=== PATIENT | male | born 1970 | race African-American/Black ===

== ENCOUNTER 2017-12-10 19:10 | Inpatient (IN) | payer OTHER ==
[2017-12-10 21:00] VITALS: BMI 23.3
[2017-12-10] MEDS ORDERED: MELATONIN 5 MG TABLETS PO PRN (22:00)
--- NOTE | 2017-12-10 22:28 | HP ---
CIWA Score - CIWA Score Nausea/Vomitin Muscle Tremors: 3 Anxiety: 4-Mod. Anxious/Guarded Agitation: 4-Moderately Restless Paroxysmal Sweats: 4-Forehead w/Sweat Beads Orientation: 2-Disoriented Date<2 days Tacttile Disturbances: 3-Moderate Itch/Numb/Burn Auditory Disturbances: 0-None Visual Disturbances: 0-None Headache: 2-Mild CIWA-Ar Total Score: 25 Admission ROS BHS - HPI Chief Complaint: SEEKING DETOX FOR ALCOHOLISM AND WITHDRAWAL SX'S Allergies/Adverse Reactions: Allergies Allergy/AdvReac Type Severity Reaction Status Date / Time No Known Allergies Allergy Verified 12/10/17 21:08 History of Present Illness: 47 Y.O. MALE WITH LONG HX/O ALCOHOLISM HERE FOR DETOX. CLIENT STATES THIS IS HIS FIRST ATTEMPT IN DETOX BUT IS KNOWN TO INPATIENT REHAB SERVICES. HE IS COMPLAINING OF AN ABSCESS TO HIS BUTTOCKS THAT KEEPS RECURRING. ONCE HAD IT SX REMOVED BUT HAS SINCE RETURNED. DENIES PMHX/ FEELS DEPRESSED BUT DENIES SI/HI, A /V HALLUCINATIONS. REPORTS LONGEST CLEAN TIME 6 MONTHS. Exam Limitations: No Limitations - Ebola screening Have you traveled outside of the country in the last 21 days: No (N) Have you had contact with anyone from an Ebola affected area: No Have you been sick,other than usual withdrawal symptoms: No Do you have a fever: No - Review of Systems Constitutional: Chills, Loss of Appetite, Night Sweats, Changes in sleep EENT: reports: No Symptoms Reported Respiratory: reports: No Symptoms reported Cardiac: reports: No Symptoms Reported GI: reports: Nausea, Poor Appetite, Poor Fluid Intake : reports: No Symptoms Reported Musculoskeletal: reports: No Symptoms Reported Integumentary: reports: Other (ABSCESS TO BOTH BUTTOCKS) Neuro: reports: No Symptoms reported Endocrine: reports: No Symptoms Reported Hematology: reports: No Symptoms Reported Psychiatric: reports: Depressed Other Systems: Reviewed and Negative Patient History - Patient Medical History Hx Anemia: No Hx Asthma: No Hx Chronic Obstructive Pulmonary Disease (COPD): No Hx Cancer: No Hx Cardiac Disorders: No Hx Congestive Heart Failure: No Hx Hypertension: No Hx Hypercholesterolemia: No Hx Pacemaker: No HX Cerebrovascular Accident: No Hx Seizures: No Hx Dementia: No Hx Diabetes: No Hx Gastrointestinal Disorders: No Hx Liver Disease: No Hx Genitourinary Disorders: No Hx Sexually Transmitted Disorders: No Hx Renal Disease (ESRD): No Hx Thyroid Disease: No Hx Human Immunodeficiency Virus (HIV): No Hx Hepatitis C: No Hx Depression: Yes Hx Suicide Attempt: No Hx Bipolar Disorder: No Hx Schizophrenia: No Other Medical History: REOCURRING HIDRADENITIS SUPPURATIVA OF THE BUTTOCKS - Patient Surgical History Past Surgical History: Yes Hx Neurologic Surgery: No Hx Cataract Extraction: No Hx Cardiac Surgery: No Hx Lung Surgery: No Hx Breast Surgery: No Hx Breast Biopsy: No Hx Abdominal Surgery: No Hx Appendectomy: No Hx Cholecystectomy: No Hx Genitourinary Surgery: No Hx Section: No Hx Orthopedic Surgery: No Other Surgical History: SX REMOVAL OF ABCESSES TO BUTTOCKS Anesthesia Reaction: No - PPD History Previous Implant?: Yes Documented Results: Negative w/o proof Implanted On Prior R Admission?: No PPD to be Administered?: Yes - Smoking Cessation Smoking history: Current every day smoker Have you smoked in the past 12 months: Yes Aproximately how many cigarettes per day: 10 Hx Chewing Tobacco Use: No Initiated information on smoking cessation: Yes 'Breaking Loose' booklet given: 12/10/17 - Substance & Tx. History Hx Alcohol Use: Yes Hx Substance Use: Yes Substance Use Type: Alcohol Hx Substance Use Treatment: Yes (DOES NOT RECALL REHAB) - Substances Abused Alcohol Route: Oral Frequency: Daily Amount used: liquor-3 pints Age of first use: 28 Date of Last Use: 12/10/17 Family Disease History - Family Disease History Family History: Denies Admission Physical Exam BHS - Vital Signs Vital Signs: Vital Signs - 24 hr 12/10/17 20:59 Temperature 98.8 F Pulse Rate 102 H Respiratory 18 Rate Blood Pressure 119/68 - Physical General Appearance: Yes: Appropriately Dressed, Alcohol on Breath, Intoxicated, Tremorous, Anxious HEENTM: Yes: EOMI, Normal Voice, YEMI, Pharynx Normal Respiratory: Yes: Chest Non-Tender, Lungs Clear, Normal Breath Sounds, No Respiratory Distress, No Accessory Muscle Use Neck: Yes: No masses,lesions,Nodules, Supple, Trachea in good position Breast: Yes: Breast Exam Deferred Cardiology: Yes: Regular Rhythm, S1, S2, Tachycardia Abdominal: Yes: Normal Bowel Sounds, Non Tender, Flat, Soft Genitourinary: Yes: Within Normal Limits Back: Yes: Normal Inspection Musculoskeletal: Yes: full range of Motion, Gait Steady Extremities: Yes: Normal Capillary Refill, Normal Range of Motion, Non-Tender, Tremors Neurological: Yes: Alert, Motor Strength 5/5, Disoriented Integumentary: Yes: Dry (FOLLICULITIS/ HIDRADENITIS SUPPURATIVA OF THE BUTTOCKS NOTED TO R/L BUTTOCKS PIMPLE LIKE ABCESS), Warm, Other Lymphatic: Yes: Within Normal Limits - Diagnostic (1) Alcohol dependence with uncomplicated withdrawal Current Visit: Yes Status: Chronic (2) Nicotine dependence Current Visit: Yes Status: Chronic Qualifiers: Nicotine product type: cigarettes Substance use status: uncomplicated Qualified Code(s): F17.210 - Nicotine dependence, cigarettes, uncomplicated (3) Depressed mood Current Visit: Yes Status: Suspected (4) Hidradenitis suppurativa Current Visit: Yes Status: Chronic (5) Folliculitis Current Visit: Yes Status: Acute (6) Dehydration Current Visit: Yes Status: Acute (7) Poor appetite Current Visit: Yes Status: Acute Cleared for Admission [facility] - Detox or Rehab [facility] Level of Care: Medically Managed Detox Regimen/Protocol: Librium Claeared for Rehab Admission: No [facility] Breath Alcohol Content Breath Alcohol Content: 0.369 Urine Drug Screen - Results Drug Screen Negative: Yes
[2017-12-10] MEDS ORDERED: chlordiazePOXIDE HCL 25 MG CAPSULE PO PRN (22:48)
[2017-12-10] MEDS ORDERED: MENTHOL/PHENOL 1 EACH UD MM PRN (22:48)
[2017-12-10] MEDS ORDERED: P-EPHED 60MG/TRIPROLIDI 2.5MG TABLET PO PRN (22:48)
[2017-12-10] MEDS ORDERED: MAG HYDROX/AL HYDROX/SIMETH 30 ML UNIT-DOSE CUP PO PRN (22:48)
[2017-12-10] MEDS ORDERED: hydrOXYzine PAMOATE 50 MG CAPSULE (FP) PO PRN (22:48)
[2017-12-10] MEDS ORDERED: LOPERAMIDE HCL 2 MG CAPSULE PO PRN (22:48)
[2017-12-10] MEDS ORDERED: guaiFENesin/D-METHORPHAN HB 10 ML UNIT-DOSE CUPS PO PRN (22:48)
[2017-12-10] MEDS ORDERED: NICOTINE POLACRILEX 2 MG GUM BC PRN (22:48)
[2017-12-10] MEDS ORDERED: ACETAMINOPHEN 325 MG TABLET (FP) PO PRN (22:48)
[2017-12-10] MEDS ORDERED: IBUPROFEN 400 MG TABLET (FP) PO PRN (22:48)
[2017-12-11] MEDS: chlordiazePOXIDE HCL 25 MG CAPSULE PO SCH ×4 (00:29→22:22)
[2017-12-11] MEDS: PRENATAL VITAMINS W/ FOLIC ACID TABLET (FP) PO SCH (07:48)
[2017-12-11] MEDS ORDERED: DOXYCYCLINE HYCLATE 100 MG CAPSULE PO SCH (10:00)
[2017-12-11 10:16] LABS: HEMATOCRIT 34.5 % (35.4-49); HEMOGLOBIN 12.4 GM/dL (11.7-16.9); MCH 33.2 pg (25.7-33.7); MCHC 35.8 g/dl (32.0-35.9); MEAN CELL VOLUME 92.7 fl (80-96); MEAN PLT VOLUME 8.1 fl (7.5-11.1); PLATELET COUNT 176 K/MM3 (134-434); RBC 3.73 M/mm3 (4.00-5.60); RDW 15.6 % (11.9-15.9); WHITE BLOOD COUNT 4.6 K/mm3 (4.0-10.0)
[2017-12-11 10:18] LABS: ALBUMIN 3.2 g/dl (3.4-5.0); CHLORIDE 102 mmol/L (98-107); POTASSIUM 3.5 mmol/L (3.5-5.1); SODIUM 140 mmol/L (136-145)
[2017-12-11 10:27] LABS: ALK PHOS 84 U/L (45-117); ANION GAP 12 (8-16); BILIRUBIN,TOTAL 1.3 mg/dL (0.2-1.0); BLOOD UREA NITROGEN 9 mg/dL (7-18); CALCIUM 8.5 mg/dL (8.5-10.1); CO2 26 mmol/L (21-32); CREATININE 0.8 mg/dL (0.7-1.3); GLUCOSE,RANDOM 83 mg/dL (74-106); SGOT/AST 131 U/L (15-37); SGPT/ALT 46 U/L (12-78); TOT PROT 6.7 g/dl (6.4-8.2)
[2017-12-11] MEDS: NICOTINE 14 MG/24 HOURS TOPICAL PATCH TD SCH (10:42)
--- NOTE | 2017-12-11 12:03 | EKG ---
Test Reason : Blood Pressure : / mmHG Vent. Rate : 094 BPM Atrial Rate : 094 BPM P-R Int : 142 ms QRS Dur : 082 ms QT Int : 346 ms P-R-T Axes : 063 074 061 degrees QTc Int : 432 ms NORMAL SINUS RHYTHM NORMAL ECG NO PREVIOUS ECGS AVAILABLE Confirmed by DREW FLORES, NOLVIA ([id number]) on 12/11/2017 12:03:09 PM Referred By: Confirmed By:NOLVIA RUSSELL MD
--- NOTE | 2017-12-11 12:36 | PN ---
[facility] CIWA - CIWA Score Nausea/Vomitin-No Nausea/No Vomiting Muscle Tremors: 4-Moderate,w/Arms Extend Anxiety: 4-Mod. Anxious/Guarded Agitation: 4-Moderately Restless Paroxysmal Sweats: 1-Minimal Palms Moist Orientation: 0-Oriented Tacttile Disturbances: 3-Moderate Itch/Numb/Burn Auditory Disturbances: 0-None Visual Disturbances: 0-None Headache: 0-None Present CIWA-Ar Total Score: 16 S Progress Note (SOAP) Subjective: ANXIETY,TREMORS,SWEATS, INTERMITTENT SLEEP. PT REPORTS "I CAN'T TAKE THE SKIN TEST. I DO THE CHEST XRAY". PT DID NOT GIVE ON ADMISSION HIS CORRECT PPD STATUS - DID NOT REMEMBER. Objective: 12/11/17 12:34 Vital Signs 12/11/17 12/11/17 12/11/17 05:00 05:30 06:00 Temperature Pulse Rate 103 H 100 H 100 H Respiratory 18 18 18 Rate Blood Pressure 12/11/17 12/11/17 12/11/17 06:23 06:30 06:54 Temperature 98.7 F Pulse Rate 99 H 99 H Respiratory 18 18 18 Rate Blood Pressure 129/75 12/11/17 12/11/17 12/11/17 07:00 07:30 08:00 Temperature Pulse Rate 98 H 97 H 95 H Respiratory 18 18 18 Rate Blood Pressure 12/11/17 12/11/17 12/11/17 08:30 09:00 09:30 Temperature Pulse Rate 94 H 103 H 100 H Respiratory 18 22 22 Rate Blood Pressure 12/11/17 12/11/17 12/11/17 09:52 10:00 10:30 Temperature 98.8 F Pulse Rate 103 H 98 H 96 H Respiratory 20 20 20 Rate Blood Pressure 127/81 Laboratory Tests 12/11/17 12/11/17 07:30 07:30 WBC 4.6 RBC 3.73 L Hgb 12.4 Hct 34.5 L MCV 92.7 MCH 33.2 MCHC 35.8 RDW 15.6 Plt Count 176 MPV 8.1 Sodium 140 Potassium 3.5 Chloride 102 Carbon Dioxide 26 Anion Gap 12 BUN 9 Creatinine 0.8 Creat Clearance w eGFR > 60 Random Glucose 83 Calcium 8.5 Total Bilirubin 1.3 H AST 131 H ALT 46 Alkaline Phosphatase 84 Total Protein 6.7 Albumin 3.2 L OTHER LABS PENDING Assessment: 12/11/17 12:35 WITHDRAWAL SX Plan: CONTINUE DETOX CHEST XRAY ORDERED TODAY
--- NOTE | 2017-12-11 15:05 | CONSULT ---
[facility] Psychiatric Consult - Data Date of interview: 12/11/17 Admission source: [facility] Identifying data: Readmission to [facility] for this [place]-born male seeking detoxification treatment on for alcohol dependence.Patient is , a father of one,homeless,unemployed and deprived of any source of income. Substance Abuse History: Confirmed by patient in this session.Smoking history: Current every day smoker. Have you smoked in the past 12 months: Yes. Aproximately how many cigarettes per day: 10. Hx Chewing Tobacco Use: No. Initiated information on smoking cessation: Yes. 'Breaking Loose' booklet given : 12/10/17. - Substance & Tx. History. Hx Alcohol Use: Yes. Hx Substance Use : Yes. Substance Use Type: Alcohol. Hx Substance Use Treatment: Yes (DOES NOT RECALL REHAB). - Substances Abused. Alcohol. Route: Oral. Frequency: Daily. Amount used: liquor-3 pints. Age of first use: 28. Date of Last Use: 12/10/17 Medical History: Hydradenitis suppurativa (buttocks) and a history of positive PPD. Psychiatric History: Patient denies. Physical/Sexual Abuse/Trauma History: Patient denies. Additional Comment: Drug Screen is negative. Mental Status Exam - Mental Status Exam Alert and Oriented to: Time, Place, Person Cognitive Function: Good Patient Appearance: Well Groomed (short stature) Mood: Nervous, Withdrawn Affect: Mood Congruent Patient Behavior: Fatigued, Appropriate, Cooperative Speech Pattern: Clear, Appropriate Voice Loudness: Normal Thought Process: Intact, Goal Oriented Thought Disorder: Not Present Hallucinations: Denies Suicidal Ideation: Denies Homicidal Ideation: Denies Insight/Judgement: Poor Sleep: Well Appetite: Good Muscle strength/Tone: Normal Gait/Station: Normal Psychiatric Findings - Problem List ([place] 1, 2,3) (1) Alcohol dependence with uncomplicated withdrawal Current Visit: Yes Status: Acute (2) Nicotine dependence Current Visit: Yes Status: Acute Qualifiers: Nicotine product type: cigarettes Substance use status: in withdrawal Qualified Code(s): F17.213 - Nicotine dependence, cigarettes, with withdrawal (3) Insomnia Current Visit: Yes Status: Acute - Initial Treatment Plan Initial Treatment Plan: Psychoeducation.Detoxification.Observation.
[2017-12-11 18:14] LABS: URINE APPEARANCE CLEAR; URINE BILIRUBIN NEGATIVE (<2.0 mg/dL); URINE COLOR DKYELLOW; URINE GLUCOSE (UA) 3+ (NEGATIVE); URINE KETONE NEGATIVE (NEGATIVE); URINE LEUK ESTERASE NEGATIVE (NEGATIVE); URINE NITRITE NEGATIVE (NEGATIVE); URINE PROTEIN NEGATIVE (NEGATIVE); URINE UROBILINOGEN 4.0 E.U/dl mg/dL (0.2-1.0)
[2017-12-11] MEDS: DOXYCYCLINE HYCLATE 100 MG TABLET PO SCH (19:11)
[2017-12-11] MEDS: THIAMINE HCL 100 MG TABLET (FP) PO SCH (22:22)
[2017-12-12] MEDS: chlordiazePOXIDE HCL 25 MG CAPSULE PO SCH ×3 (05:35→17:36)
[2017-12-12] MEDS: PRENATAL VITAMINS W/ FOLIC ACID TABLET (FP) PO SCH ×2 (07:39→10:32)
--- NOTE | 2017-12-12 10:24 | PN ---
S CIWA - CIWA Score Nausea/Vomitin-No Nausea/No Vomiting Muscle Tremors: 3 Anxiety: 5 Agitation: 3 Paroxysmal Sweats: 1-Minimal Palms Moist Orientation: 0-Oriented Tacttile Disturbances: 0-None Auditory Disturbances: 0-None Visual Disturbances: 0-None Headache: 0-None Present CIWA-Ar Total Score: 12 BHS Progress Note (SOAP) Subjective: PT C/O "WOOZY" FEELING. FIRST TIME IN DETOX. ALERT O X 3. DENIES NAUSEA/ VOMITING. Objective: 12/12/17 11:28 Vital Signs 12/12/17 12/12/17 12/12/17 06:03 06:50 09:34 Temperature 96.5 F L 98.1 F Pulse Rate 80 92 H Respiratory 16 18 20 Rate Blood Pressure 105/62 118/71 Laboratory Tests 12/11/17 12/11/17 12/11/17 07:30 07:30 07:30 WBC 4.6 RBC 3.73 L Hgb 12.4 Hct 34.5 L MCV 92.7 MCH 33.2 MCHC 35.8 RDW 15.6 Plt Count 176 MPV 8.1 Sodium 140 Potassium 3.5 Chloride 102 Carbon Dioxide 26 Anion Gap 12 BUN 9 Creatinine 0.8 Creat Clearance w eGFR > 60 Random Glucose 83 Calcium 8.5 Total Bilirubin 1.3 H AST 131 H ALT 46 Alkaline Phosphatase 84 Total Protein 6.7 Albumin 3.2 L Urine Color Urine Appearance Urine pH Ur Specific [place] Urine Protein Urine Glucose (UA) Urine Ketones Urine Blood Urine Nitrite Urine Bilirubin Urine Urobilinogen Ur Leukocyte Esterase RPR Titer Nonreactive 12/11/17 10:00 WBC RBC Hgb Hct MCV MCH MCHC RDW Plt Count MPV Sodium Potassium Chloride Carbon Dioxide Anion Gap BUN Creatinine Creat Clearance w eGFR Random Glucose Calcium Total Bilirubin AST ALT Alkaline Phosphatase Total Protein Albumin Urine Color Dkyellow Urine Appearance Clear Urine pH 5.0 Ur Specific [place] 1.025 Urine Protein Negative Urine Glucose (UA) 3+ H Urine Ketones Negative Urine Blood Negative Urine Nitrite Negative Urine Bilirubin Negative Urine Urobilinogen 4.0 e.u/dl Ur Leukocyte Esterase Negative RPR Titer Assessment: 12/12/17 11:30 WITHDRAWAL SX Plan: CONTINUE DETOX
[2017-12-12] MEDS: DOXYCYCLINE HYCLATE 100 MG TABLET PO SCH ×2 (10:32→17:36)
[2017-12-12] MEDS: NICOTINE 14 MG/24 HOURS TOPICAL PATCH TD SCH (10:33)
[2017-12-12] MEDS: THIAMINE HCL 100 MG TABLET (FP) PO SCH (22:17)
[2017-12-12] MEDS: chlordiazePOXIDE 5 MG CAPSULE PO SCH (22:17)
[2017-12-13] MEDS: chlordiazePOXIDE 5 MG CAPSULE PO SCH ×3 (05:31→17:26)
[2017-12-13] MEDS: PRENATAL VITAMINS W/ FOLIC ACID TABLET (FP) PO SCH (10:48)
[2017-12-13] MEDS: NICOTINE 14 MG/24 HOURS TOPICAL PATCH TD SCH (10:48)
[2017-12-13] MEDS: BACITRACIN 0.9 GM PACKET TP SCH ×2 (10:49→23:42)
--- NOTE | 2017-12-13 11:15 | PN ---
BHS Progress Note (SOAP) Subjective: ANXIETY,SWEATS,FATIGUE. PT IS OOB AMBULATING WITH STEADY GAIT. IRRITATION TO BEARDED AREAS. Objective: 12/13/17 11:13 Vital Signs 12/13/17 12/13/17 12/13/17 03:30 06:18 09:49 Temperature 97.2 F L 97.2 F L Pulse Rate 77 94 H Respiratory 18 18 20 Rate Blood Pressure 117/79 108/73 Laboratory Tests 12/11/17 12/11/17 12/11/17 07:30 07:30 07:30 WBC 4.6 RBC 3.73 L Hgb 12.4 Hct 34.5 L MCV 92.7 MCH 33.2 MCHC 35.8 RDW 15.6 Plt Count 176 MPV 8.1 Sodium 140 Potassium 3.5 Chloride 102 Carbon Dioxide 26 Anion Gap 12 BUN 9 Creatinine 0.8 Creat Clearance w eGFR > 60 Random Glucose 83 Calcium 8.5 Total Bilirubin 1.3 H AST 131 H ALT 46 Alkaline Phosphatase 84 Total Protein 6.7 Albumin 3.2 L Urine Color Urine Appearance Urine pH Ur Specific [place] Urine Protein Urine Glucose (UA) Urine Ketones Urine Blood Urine Nitrite Urine Bilirubin Urine Urobilinogen Ur Leukocyte Esterase RPR Titer Nonreactive 12/11/17 10:00 WBC RBC Hgb Hct MCV MCH MCHC RDW Plt Count MPV Sodium Potassium Chloride Carbon Dioxide Anion Gap BUN Creatinine Creat Clearance w eGFR Random Glucose Calcium Total Bilirubin AST ALT Alkaline Phosphatase Total Protein Albumin Urine Color Dkyellow Urine Appearance Clear Urine pH 5.0 Ur Specific [place] 1.025 Urine Protein Negative Urine Glucose (UA) 3+ H Urine Ketones Negative Urine Blood Negative Urine Nitrite Negative Urine Bilirubin Negative Urine Urobilinogen 4.0 e.u/dl Ur Leukocyte Esterase Negative RPR Titer Assessment: 12/13/17 11:14 WITHDRAWAL SX Plan: CONTINUE DETOX INCREASED FLUIDS ENCOURAGED BACITRACIN OINTMENT DIRECTED
[2017-12-13] MEDS: DOXYCYCLINE HYCLATE 100 MG TABLET PO SCH ×2 (11:18→17:26)
[2017-12-13] MEDS: THIAMINE HCL 100 MG TABLET (FP) PO SCH (23:42)
[2017-12-13] MEDS: chlordiazePOXIDE HCL 10 MG CAPSULE PO SCH (23:42)
[2017-12-14] MEDS: chlordiazePOXIDE HCL 10 MG CAPSULE PO SCH (06:01)
[2017-12-14] MEDS: DOXYCYCLINE HYCLATE 100 MG TABLET PO SCH (09:04)
[2017-12-14] MEDS: PRENATAL VITAMINS W/ FOLIC ACID TABLET (FP) PO SCH (09:04)
[2017-12-14] MEDS: NICOTINE 14 MG/24 HOURS TOPICAL PATCH TD SCH (09:05)
[2017-12-14] MEDS: BACITRACIN 0.9 GM PACKET TP SCH (09:05)
[2017-12-14 09:17] VITALS: BP 99/66; PULSE 97; TEMP 96.9
--- NOTE | 2017-12-14 19:46 | PN ---
BHS Progress Note (SOAP) Subjective: Patient denies current Detox symptoms and reports that he feels well overall. Objective: PATIENT A & O X 3, OBSERVED AMBULATING ON UNIT. NO ACUTE DISTRESS. 12/14/17 19:45 Vital Signs Temperature 96.9 F L 12/14/17 09:16 Pulse Rate 97 H 12/14/17 09:16 Respiratory Rate 20 12/14/17 09:16 Blood Pressure 99/66 12/14/17 09:16 O2 Sat by Pulse Oximetry (%) Laboratory Tests 12/11/17 12/11/17 12/11/17 07:30 07:30 07:30 WBC 4.6 RBC 3.73 L Hgb 12.4 Hct 34.5 L MCV 92.7 MCH 33.2 MCHC 35.8 RDW 15.6 Plt Count 176 MPV 8.1 Sodium 140 Potassium 3.5 Chloride 102 Carbon Dioxide 26 Anion Gap 12 BUN 9 Creatinine 0.8 Creat Clearance w eGFR > 60 Random Glucose 83 Calcium 8.5 Total Bilirubin 1.3 H AST 131 H ALT 46 Alkaline Phosphatase 84 Total Protein 6.7 Albumin 3.2 L Urine Color Urine Appearance Urine pH Ur Specific [place] Urine Protein Urine Glucose (UA) Urine Ketones Urine Blood Urine Nitrite Urine Bilirubin Urine Urobilinogen Ur Leukocyte Esterase RPR Titer Nonreactive 12/11/17 10:00 WBC RBC Hgb Hct MCV MCH MCHC RDW Plt Count MPV Sodium Potassium Chloride Carbon Dioxide Anion Gap BUN Creatinine Creat Clearance w eGFR Random Glucose Calcium Total Bilirubin AST ALT Alkaline Phosphatase Total Protein Albumin Urine Color Dkyellow Urine Appearance Clear Urine pH 5.0 Ur Specific [place] 1.025 Urine Protein Negative Urine Glucose (UA) 3+ H Urine Ketones Negative Urine Blood Negative Urine Nitrite Negative Urine Bilirubin Negative Urine Urobilinogen 4.0 e.u/dl Ur Leukocyte Esterase Negative RPR Titer LABS NOTED. Assessment: 12/14/17 19:46 COMPLETION OF DETOX REGIMEN. Plan: PATIENT SCHEDULED FOR DISCHARGE FROM DETOX UNIT TODAY.
--- NOTE | 2017-12-14 19:50 | DS ---
[facility] Detox Discharge Summary Admission Date: 12/10/17 Discharge Date: 12/14/17 - History Present History: Alcohol Dependence Additional Comments: PATIENT GOING HOME. PATIENT ADVISED TO CONSIDER LOCAL 12-STEP / AA OUTPATIENT SUPPORT GROUPS FOR AFTERCARE. PATIENT WAS DISCHARGED FROM DETOX UNIT IN STABLE MEDICAL CONDITION. Pertinent Past History: Hydratinitis Suppurativa, Folliculitis, Depression, Dehydration, Insomnia, Nicotine Dependence. - Physical Exam Results Vital Signs: Vital Signs Temperature 96.9 F L 12/14/17 09:16 Pulse Rate 97 H 12/14/17 09:16 Respiratory Rate 20 12/14/17 09:16 Blood Pressure 99/66 12/14/17 09:16 O2 Sat by Pulse Oximetry (%) Pertinent Admission Physical Exam Findings: WITHDRAWAL SYMPTOMS. Laboratory Tests 12/11/17 12/11/17 12/11/17 07:30 07:30 07:30 WBC 4.6 RBC 3.73 L Hgb 12.4 Hct 34.5 L MCV 92.7 MCH 33.2 MCHC 35.8 RDW 15.6 Plt Count 176 MPV 8.1 Sodium 140 Potassium 3.5 Chloride 102 Carbon Dioxide 26 Anion Gap 12 BUN 9 Creatinine 0.8 Creat Clearance w eGFR > 60 Random Glucose 83 Calcium 8.5 Total Bilirubin 1.3 H AST 131 H ALT 46 Alkaline Phosphatase 84 Total Protein 6.7 Albumin 3.2 L Urine Color Urine Appearance Urine pH Ur Specific [place] Urine Protein Urine Glucose (UA) Urine Ketones Urine Blood Urine Nitrite Urine Bilirubin Urine Urobilinogen Ur Leukocyte Esterase RPR Titer Nonreactive 12/11/17 10:00 WBC RBC Hgb Hct MCV MCH MCHC RDW Plt Count MPV Sodium Potassium Chloride Carbon Dioxide Anion Gap BUN Creatinine Creat Clearance w eGFR Random Glucose Calcium Total Bilirubin AST ALT Alkaline Phosphatase Total Protein Albumin Urine Color Dkyellow Urine Appearance Clear Urine pH 5.0 Ur Specific [place] 1.025 Urine Protein Negative Urine Glucose (UA) 3+ H Urine Ketones Negative Urine Blood Negative Urine Nitrite Negative Urine Bilirubin Negative Urine Urobilinogen 4.0 e.u/dl Ur Leukocyte Esterase Negative RPR Titer LABS NOTED. - Treatment Hospital Course: Detox Protocol Followed, Detoxed Safely, Responded well, Discharged Condition Good Patient has Accepted a Rehab Referral to: PT GOING HOME, ADVISED TO CONSDIDER LOCAL 12-STEP/AA OUTPATIENT PROGRAMS. - Medication Discharge Medications: Ambulatory Orders Doxycycline Hyclate [Vibratab -] 100 mg PO BID@1000,1800 #10 tablet 12/13/17 - Diagnosis (1) Alcohol dependence with uncomplicated withdrawal Status: Acute (2) Dehydration Status: Acute (3) Folliculitis Status: Acute (4) Insomnia Status: Acute Qualifiers: Insomnia type: unspecified Qualified Code(s): G47.00 - Insomnia, unspecified (5) Nicotine dependence Status: Acute Qualifiers: Nicotine product type: cigarettes Substance use status: in withdrawal Qualified Code(s): F17.213 - Nicotine dependence, cigarettes, with withdrawal (6) Poor appetite Status: Acute (7) Hidradenitis suppurativa Status: Chronic - AMA Did Patient Leave Against Medical Advice: No
== END 2017-12-14 09:16 | disposition home or self-care (01) | DRG 775 ==
LOC: YASAS 19:10 → Y3N 21:22
PROVIDERS: ADMIT Internal Medicine; ATTEND Internal Medicine
PROC: HZ2ZZZZ Detoxification Services for Substance Abuse Treatment (ICD-10-PCS; principal; 2017-12-10)
DX: F10.230 Alcohol dependence with withdrawal, uncomplicated (principal); F17.213 Nicotine dependence, cigarettes, with withdrawal; F32.9 Major depressive disorder, single episode, unspecified; G47.00 Insomnia, unspecified; E86.0 Dehydration; R63.0 Anorexia; L73.2 Hidradenitis suppurativa; L73.8 Other specified follicular disorders
CPT/HCPCS: 36415; 71046-TC-FY; 80053; 81003; 85027; 86593; 93005; 93010

== ENCOUNTER 2018-07-03 09:38 | Day surgery (SDC) | payer OTHER ==
[2018-07-02 13:09] VITALS: BMI 26.6
--- NOTE | 2018-07-02 16:10 | HP ---
- Patient Scheduled date of Surgery: 07/03/18 Scheduled Surgical Procedure: Excision of Pterygium Affected Eye: Left Chief Complaint (Indication for surgery): Decreased vision affecting ADLs ( encroaching on visual axis) - Ocular History Other Eye History: POAG Eye Medications: latanoprost night ou, timolol bid ou - Medical History Illnesses: Anemia, Hypercholesterolemia, Other (etoh dependence) Current Medications: Ambulatory Orders Multivitamin [Poly-Vitamin] 1 each PO DAILY 07/02/18 Thiamine HCl [Vitamin B1] 100 mg PO DAILY 07/02/18 Allergies/Adverse Reactions: Allergies Allergy/AdvReac Type Severity Reaction Status Date / Time No Known Allergies Allergy Verified 12/10/17 21:08 Ocular Examination - Best Corrected Visual Acuity Distance: Right eye: 20/30 Distance: Left eye: 20/30 - External/Slit Lamp Examination Abnormalities: foamy secretions, decreased TBUT, 1+ injection pterygium 4 mm from limbus on cornea - Intraocular Pressure Intraocular Pressure - Right eye: 14 Intraocular Pressure-Left eye: 14 - Lens Lens: clear - Vitreous/Retina Vitreous/Retina: C:D 0.6 m/v/p wnl - Special Examination M - Right eye: -1.00-1.25 x 015 M - Left eye: +0.50 -1.50 x 170 K - Right eye: 44/45.75 x 106 K - Left eye: 43/46.50 x 070 - Impression Impression: Other (pterygium left eye encroaching on visual axis) - Plan Plan: Other (Pterygium excision with AMG left eye) Post-hospital care will be provided in office on: 07/04/18
[2018-07-03] MEDS ORDERED: PHENYLEPHRINE 2.5% OPHTH SOLN 15 ML BOTTLE ONE (10:00)
[2018-07-03] MEDS ORDERED: KETOROLAC TROMETHAMINE 0.5% EYE DROP 1 DROP DROPS ONE (10:00)
[2018-07-03] MEDS ORDERED: CIPROFLOXACIN HCL 0.3% OPHTH 2.5ML BOTTLE ONE (10:00)
[2018-07-03] MEDS ORDERED: TROPICAMIDE 1% OPHTH SOLN 15 ML BOTTLE ONE (10:00)
--- NOTE | 2018-07-03 10:37 | HP ---
History & Physical Update - History History: No Change - Physical Physical: No Change - Assessment Assessment: No Change - Plan Plan: No Change (H and P reviewed from 06/26/[address] Hernandez, no changes)
[2018-07-03] MEDS ORDERED: KETOROLAC TROMETHAMINE 30 MG/1 ML VIAL ONE (10:58)
[2018-07-03] MEDS ORDERED: MIDAZOLAM HCL 2 MG/2 ML SINGLE DOSE VIAL ONE (10:58)
[2018-07-03] MEDS ORDERED: LIDOCAINE HCL 2% JELLY (5 ML/TUBE) TP ONE (10:58)
[2018-07-03] MEDS ORDERED: POVIDONE-IODINE 5% OPHTHALMIC PREP 30 ML SOLUTION OS ONE (10:59)
[2018-07-03] MEDS ORDERED: BSS (NA/CA/MG/K) BALANCED SALT SOLUTION OPHTH SOLN 15 ML BOTTLE OS ONE (11:10)
[2018-07-03] MEDS ORDERED: LIDOCAINE 1%/EPI 1:100000 (20 ML MULTI DOSE VIAL) IJ ONE (11:10)
[2018-07-03] MEDS ORDERED: TOBRA 0.3%/DEXAMETH 0.1% OPHTHALMIC SUSP 2.5 ML BTL OS ONE (11:46)
--- NOTE | 2018-07-03 11:49 | OP ---
Ophthalmology Operative Note Pre-Operative Diagnosis: Pterygium Affected Eye: Left Operation: Excision of Pterygium (with Amniotic membrane graft left eye) Findings: Ptergyium encroaching on visual axis left eye Post-Operative Diagnosis: Same as Pre-op Ceramic Chemist: None Anesthesiologist: Adrian Costello Anesthesia: Topical Specimens Removed: Ptergygium Estimated blood loss: 2 cc Drains & Tubes with Location: none Operative Report Dictated: Yes
[2018-07-03 12:58] VITALS: BP 123/86; PULSE 84; TEMP 97.9
--- NOTE | 2018-07-04 07:58 | OP ---
DATE OF OPERATION: 07/03/2018 PREOPERATIVE DIAGNOSIS: Pterygium, left eye, encroaching on visual access. PROCEDURE: Pterygium excision with amniotic membrane graft, left eye. SURGEON: Lou Pereira MD WATCH CRYSTAL MOLDER: None. ANESTHESIA: Topical. ANESTHESIOLOGIST: Adrian Costello MD OPERATIVE PROCEDURE: The patient received 2% lidocaine gel and was then gently sedated and prepped and draped in the usual sterile fashion, so as to expose only the left eye. Ophthalmic Betadine was instilled into the inferior fornix, and the lashes were taped out of the surgical field. An eyelid speculum was placed into the left eye. The body of the pterygium was marked with a sterile marking pen, and approximately 0.5 mL of lidocaine 1% with epinephrine was injected deep to the body of the pterygium to balloon it up. The pterygium head was then grasped with a 0.12 forceps and sheared off the cornea. The corneal surface was then smoothed using a 15 blade and a 57 blade as well as a jack sol. The body of the pterygium was then dissected using Radha scissors and any additional Tenons was also dissected using the Radha scissors. Any bleeding vessels were cauterized using bipolar cautery. The size of the defect was measured to be 15 mm x 7 mm, and an appropriately sized amniotic membrane graft was fashioned. Tisseel glue was injected under the graft. However, the glue coagulated immediately. Therefore, this graft was wasted and another graft of the same size was placed on the scleral bed, and Tisseel glue was injected under the graft. This time, the glue coagulated, and the graft remained in place. Therefore, a collagen-soaked shield soaked in TobraDex was placed on the eye, and the speculum was removed from the eye. A sterile dressing was placed over the eye, and the patient left the operating room and was told to follow up in 1 day. LOU PEREIRA M.D. [id number]
--- NOTE | 2018-07-04 10:49 | PATH ---
Surgical Pathology Report Patient Name: YOLIE GAYTAN [facility]. Rec. #: [id number] /Age/Gender: 1970 (Age: 48) / M Account: [id number] Location: [facility] SURGICAL Taken: 07/03/2018 Received: 07/03/2018 Reported: 07/04/2018 Physicians: Lou López Specimen(s) Received PTERYGIUM LEFT EYE Clinical History Pterygium encroaching on visual access Final Diagnosis PTERYGIUM, LEFT EYE, EXCISION: PTERYGIUM. Electronically Signed Luz Maria Ramirez M.D. Gross Description Received in formalin labeled "pterygium left eye," are 2 bowmna-brown soft tissue fragments measuring 0.1 and 0.7 cm in greatest dimension. The specimens are submitted in toto in one cassette. /07/03/2018 saudi/07/03/2018
== END 2018-07-03 13:00 | disposition home or self-care (01) ==
LOC: JASU-SURG 09:38
PROVIDERS: ATTEND Ophthalmology
PROC: 08U107Z Supplement of Left Eye with Autologous Tissue Substitute, Open Approach (ICD-10-PCS; principal; 2018-07-03 10:30)
DX: H11.002 Unspecified pterygium of left eye (principal)
CPT/HCPCS: 88304-TC

== ENCOUNTER 2020-05-04 09:08 | Emergency (ER) | payer OTHER ==
[2020-05-04 09:22] VITALS: TEMP 98.5; BMI 27.4
--- OUTSIDE RECORDS SUMMARY | 2020-05-04 09:47 | XMS ---
:1970 Author Organization [facility] Care Team Providers Name Role Phone JO ANN CAIO Unavailable Unavailable ANABAPTISM, HUMAYUN Unavailable Unavailable RODOLFO LANDA Unavailable Unavailable KIRK, MATHIEU A. Unavailable Unavailable Lula, Dion Unavailable Unavailable Lula, Dion Unavailable Unavailable Lula, Dion Unavailable Unavailable Lula, Dion Unavailable Unavailable Lula, Dion Unavailable Unavailable Lula, Dion Unavailable Unavailable Lula, Dion Unavailable Unavailable Lula, Dion Unavailable Unavailable STANLEY, R, [id number] Unavailable Unavailabl e DEANA, GINNY Unavailable Unavailable LEFKOVITZ, BRIGITTE Unavailable Unavailable MENLA KYLER, LAVERNE Unavailable Unavailable KACEY, KIERAN Unavailable Unavailable LULA DION R, DION Unavailable Unavailable Menla, Kyler Unavailable Unavailable Menla, Kyler Unavailable Unavailable Menla, Kyler Unavailable Unavailable Menla, Kyler Unavailable Unavailable Menla, Kyler Unavailable Unavailable Menla, Kyler Unavailable Unavailable CORDELL MORENO, [id number] Unavailable Unavailable MELETICHE, JAYDEN Unavailable Unavailable YUE, SALVATORE Unavailable Unavailable EMERGENCY SERVICE, X Unavailable Unavailable SHELLEY, AMMIR Unavailable Unavailable MOMART, JANNETTE, [id number] Unavailable Unavailable Hemmerdinger, Olman Unavailable Unavailable Hemmerdinger, Olman Unavailable Unavailable Hemmerdinger, Olman Unavailable Unavailable Hemmerdinger, Olman Unavailable Unavailable Hemmerdinger, Olman Unavailable Unavailable Hemmerdinger, Olman Unavailable Unavailable Hemmerdinger, Olman Unavailable Unavailable Hemmerdinger, Olman Unavailable Unavailable Hemmerdinger, Olman Unavailable Unavailable Hemmerdinger, Olman Unavailable Unavailable Hemmerdinger, Olman Unavailable Unavailable Hemmerdinger, Olman Unavailable Unavailable Hemmerdinger, Olman Unavailable Unavailable Hemmerdinger, Olman Unavailable Unavailable Hemmerdinger, Olman Unavailable Unavailable Hemmerdinger, Olman Unavailable Unavailable Hemmerdinger, Olman Unavailable Unavailable Hemmerdinger, Olman Unavailable Unavailable Hemmerdinger, Olman Unavailable Unavailable Hemmerdinger, Olman Unavailable Unavailable Hemmerdinger, Olman Unavailable Unavailable CASEBETZY ALONZO Unavailable Unavailable Re-disclosure Warning The records that you are about to access may contain information from federally- assisted alcohol or drug abuse programs. If such information is present, then the following federally mandated warning applies: This information has been disclosed to you from records protected by federal confidentiality rules (42 CFR part 2). The federal rules prohibit you from making any further disclosure of this information unless further disclosure is expressly permitted by the written consent of the person to whom it pertains or as otherwise permitted by 42 CFR part 2. A general authorization for the release of medical or other information is NOT sufficient for this purpose. The Federal rules restrict any use of the information to criminally investigate or prosecute any alcohol or drug abuse patient.The records that you are about to access may contain highly sensitive health information, the redisclosure of which is protected by Article 27-F of the [facility] Public Health law. If you continue you may haveaccess to information: Regarding HIV / AIDS; Provided by facilities licensed or operated by the [facility] Office of Mental Health; or Provided by the [facility] Office for People With Developmental Disabilities. If such information is present, then the following [facility] mandated warning applies: This information has been disclosed to you from confidential records which are protected by state law. State law prohibits you from making any further disclosure of this information without the specific written consent of the person to whom it pertains, or as otherwise permitted by law. Any unauthorized further disclosure in violation of state law may result in a fine or half-way sentence or both. A general authorization for the release of medical or other information is NOT sufficient authorization for further disclosure. Allergies and Adverse Reactions Type Description Substance Reaction Status Data Source(s ) Drug allergy No Known Allergies No Known [place] eugenia Allergies [facility] Corporati on Drug allergy No Known Drug No Known Drug [place] evelyn Allergies Allergies [facility] on Food allergy No Known Food No Known Food [place] evelyn Allergies Allergies [facility] on Propensity to Propensity to Propensity to NEXTG EN ([facility] adverse reactions adverse reactions adverse reactions [facility] Medical (disorder) (disorder) (disorder) Center) Encounters Encounter Providers Location Date Indications Data Source(s ) Outpatient 02/10/2020 [facility] 11:26:00 Medical Center AM EDT Outpatient Attender: BETZY 02/10/2020 [facility] ANGELIKAdmitter: 09:39:00 Medical Ce nter BETZY AM EDT MEJIAReferrer: BETZY CASE OutpatientOFFICE Attender: [facility] 02/10/2020 NEXT GEN ([facility] /OUTPATIENT Men 09:39:00 [facility] VISIT, EST AM EDT - Center) 02/10/2020 09:39:00 AM EDT Outpatient 02/10/2020 [facility] 12:00:00 Medical Center AM EDT Emergency Attender: 02/08/2020 [facility] [place] YUE, 09:42:00 COMPLICATION [facility] bianca VAUGHNttadal: AM EDT [facility], XAdmitter: SALVATORE TURNER FEEDING TUBE COMPLICATION Outpatient Attender: BETZY Valenzuela 01/18/2020 [facility] PETEAAdmitter: 12:27:00 PM EDT [facility] BETZYKEVYN Littlejohnferrer: BETZY CASE OutpatientWell Attender: Kyler [address] [place] [address] 01/18/2020 NEXTGE N ([facility] Visit, Men 12:27:00 PM EDT [facility] edical Est,40-64years - 01/18/2020 [place] ) 12:27:00 PM EDT Outpatient 01/18/2020 [facility] 11:45:00 AM EDT Medical C enter Outpatient 01/18/2020 [facility] 12:00:00 AM EDT Medical C enter Emergency Attender: 01/05/2020 PAIN [place] CHRIS, 10:37:00 AM EDT [facility] Darion Barreraender: [facility] oration EMERGENCY SERVICE, XAdmitter: JAYDEN PEREZ PAIN Attender: [place] [id number] Clinic 10/26/2019 03:44:00 N EXTGEN ([facility] PM EDT - 10/26/2019 [facility] 03:44:00 PM EDT Center) Outpatient Attender: KIRK, 10/12/2019 03:46:00 C76.0 [facility] EDT Health Care A.Admitter: MATHIEU FunkReferrer: MATHIEU BRADLEY C76.0 Outpatient Attender: KIRK, 10/12/2019 03:45:00 C76.0 [facility] MATHIEU ShermanAdmitter: PM EDT Healt h Care MATHIEU BRADLEY Corporati on A.Referrer: MATHIEU BRADLEY C76.0 Outpatient Attender: DEANA 09/22/2019 C10.9 R22.0 [facility] TEEAAdmitter: 06:00:00 AM EST [facility] Care JENNIFER JONeferrer: GINNY Smith C10.9 R22.0 Outpatient 09/11/2019 12:47:00 [facility] EST Medical Center Outpatient 09/11/2019 12:00:00 [facility] Medical Center Attender: Kyler [address] [place] [address] 09/04/2019 06:16:00 N EXTGEN ([facility] EST - 09/04/2019 [facility] Medical 06:16:00 PM EST Center) Outpatient Attender: KIRK 08/27/2019 02:05:00 K12.30 [facility] EST Health Care A.Admitter: ANA PowellReferrer: MATHIEU BRADLEY K12.30 Outpatient Attender: MATHIEU BRADLEY 08/10/2019 03:50:00 C 76.0 [facility] A.Admitter: DIANNA EST Health Care HUMAYUNReferrer: Estephania BRADLEY C76.0 Outpatient Attender: [id number] BARRER[place], 07/29/2019 06:00:00 C 10.9 [facility] DANIKATIAdmitter: [id number] AM EST [facility] ESTELLA RUSTeferrer: Estephania [id number] JANNETTE RUST C10.9 Outpatient Attender: DIANNA 07/27/2019 02:38:00 C76.0 [place] HUMAYUNAdmitter: ANABAPTISM, PM EST H ealth Care HUMAYUNReferrer: [facility] MATHIEU A. C76.0 Attender: [facility] 07/14/2019 10:20:00 N EXTGEN ([facility] AM EST - 07/14/2019 [facility] Medical 10:20:00 AM EST Center) Outpatient Attender: DIANNA 07/09/2019 03:45:00 C76.0 [facility] EST Health C are ANABAPTISM, [employer] HUMAYUNReferrer: MATHIEU BRADLEY C76.0 Outpatient Attender: LAVERNE Valenzuela 07/08/2019 [facility] MIKEAdmitter: 09:36:00 AM [facility] LAVERNE Martinezferrer: LAVERNE CHÁVEZ OutpatientOFFICE Attender: [facility] 07/08/2019 NEXT GEN ([facility] 09:36:00 AM EST [facility] Medical VISIT, EST - 07/08/2019 Center) 09:36:00 AM EST Outpatient 07/08/2019 [facility] 09:32:00 AM EST Medical C enter Outpatient 07/08/2019 [facility] 12:00:00 AM EST Medical C enter Inpatient 07/06/2019 [place] 03:38:00 PM [facility] Corporati on Outpatient Attender: [id number] 06/28/2019 C10.9 [facility] BARRERA, 06:00:00 AM [facility] CHITTIAdmitter: Care Michela oration [id number] ESTELLA RUSTeferrer: [id number] JANNETTE RUST C10.9 Inpatient Attender: KIRK, 06/25/2019 02:38:00 MUCOSITIS [facility] MATHIEU Brewster.Admitter: PM EST - 06/30/2019 Health Care MATHIEU BRADLEY 04:58:00 PM EST Michela oration A.Referrer: MATHIEU BRADLEY. MUCOSITIS Patient admitted. Emergency Attender: KIRK, 06/25/2019 LOSS OF APPITITE [facility] MATHIEU ShermanAttender: 12:55:00 PM [facility] Care EMERGENCY SERVICE, Corpor ation XAdmitter: MATHIEU BRADLEY LOSS OF APPITITE Inpatient Attender: KACEY, 06/05/2019 MUCOCITIS [facility] 02:47:00 PM EST - Health Care KACEY KIERAN 06/20/2019 Cor poration 06:13:00 PM EST MUCOCITIS Patient admitted. Emergency Attender: KACEY, 06/05/2019 10:06:00 [facility] EST Health Care KIERAN ERAZO Cor poration SORES Outpatient Attender: [id number] BARRERA, 06/02/2019 06:00:00 C 10.9 [facility] [id number] AM EST He alth Care ESTELLA RUSTeferrer: [employer] [id number] JANNETTE RUST C10.9 Outpatient Attender: [id number] BARRERA, 05/29/2019 06:00:00 C 10.9 [facility] [id number] AM EDT He alth Care Emanuel RUSTerrer: [employer] [id number] JANNETTE RUST C10.9 Inpatient Attender: KIRK 05/28/2019 12:08:00 HEAD AND NECK [facility] MATHIEU ShermanAdmitter: PM EDT - 06/01/2019 [facility]CER Health Care MATHIEU BRADLEY 06:29:00 PM EST C orporation HEAD AND NECK CANCER Patient admitted. Outpatient Attender: KIRK 05/28/2019 C76.0 [facility] MATHIEU ShermanAdmitter: 07:00:00 AM EDT [id number] Health Care [facility] MICHAELReferrer: MATHIEU BRADLEY C76.0 [id number] Outpatient Attender: MATHIEU BRADLEY 05/26/2019 07:00:00 C 76.0 [facility].Admitter: ANABAPTISM, AM EDT [facility] Care HUMDURANUNReferrer: Estephania BRADLEY C76.0 Outpatient Attender: DIANNA 05/20/2019 12:47:00 C76.0 [facility] Services[facility]UNAdmitter: ANABAPTISM, PM EDT [facility] HUMAYUNReferrer: Estephania BRADLEY C76.0 Outpatient 05/18/2019 01:07:00 PM [facility] EDT Center Outpatient 05/18/2019 12:00:00 AM [facility] EDT Center Outpatient Attender: KIRK, 05/14/2019 04:29:00 PM C76.0 [facility] MATHIEU ShermanAdmitter: EDT [facility] MATHIEU BRADLEYReferrer: MATHIEU BRADLEY C76.0 Outpatient Attender: [id number] BARRERA, 05/07/2019 06:00:00 C 10.9 [facility] CHITTIAdmitter: [id number] AM EDT [facility] ESTELLA RUSTeferrer: [facility] [id number] JANNETTE RUST C10.9 Outpatient Attender: KIRK, 05/05/2019 [facility] MATHIEU ShermanAdmitter: 12:12:00 PM EDT - NEOPLASM OROPHA Health Care MATHIEU BRADLEY 05/06/2019 Corpor ation 04:06:00 PM EDT MALIGNANT NEOPLASM OROPHA Inpatient Attender: KIRK 05/05/2019 [facility] MATHIEU ShermanAdmitter: 10:32:00 AM EDT - NEOPLASM OROPHA Health Care MATHIEU BRADLEY 05/06/2019 Corpor ation 04:06:00 PM EDT MALIGNANT NEOPLASM OROPHA Patient admitted. Inpatient Attender: KIRK 05/05/2019 [facility] MATHIEU LaneAdmitter: 10:00:00 AM EDT NEOPLASM OR OPHA Health Care MATHIEU BRADLEY. Corpor ation MALIGNANT NEOPLASM OROPHA Inpatient Attender: KIRK 05/04/2019 [facility] MATHIEU AMercedesAdmitter: 01:34:00 PM EDT NEOPLASM OR OPHA Health Care KIRSTIE BRADLEYO A. Corpor ation MALIGNANT NEOPLASM OROPHA Patient admitted. Inpatient Attender: KIRK 05/04/2019 [facility] MATHIEU AMercedesAdmitter: 10:00:00 AM EDT NEOPLASM OR OPHA Health Care MATHIEU BRADLEY Corpor ation MALIGNANT NEOPLASM OROPHA Inpatient Attender: KIRK 05/04/2019 [facility] MATHIEU ShermanAdmitter: 09:28:00 AM EDT NEOPLASM OR OPHA Health Care MATHIEU BRADLEY Corpor ation MALIGNANT NEOPLASM OROPHA Outpatient Attender: [id number] BARRERA, 04/28/2019 06:00:00 C 10.9 [facility] CHITTIAdmitter: [id number] AM EDT [facility] ESTELLA RUSTeferrer: Corporation [id number] JANNETTE RUST C10.9 Outpatient Attender: [id number] BARRERA, 04/23/2019 06:00:00 C 10.9 [facility] CHITTIAdmitter: [id number] AM EDT - 04/27/[address] [facility] Emanuel RUSTerrer: 10:30:00 AM EDT Corporation [id number] PANCHAL C10.9 Outpatient Attender: [id number] 04/16/2019 [facility] Werner, 10:16:00 AM EDT [facility] RAdmitter: [id number] Care Co Rodriguez Ritter Attender: [facility] 04/10/2019 NEXT GEN ([facility] 05:39:00 PM EDT Marcela Wolfe edical - 04/10/2019 [place]) 05:39:00 PM EDT Outpatient Attender: [id number] [facility] 04/07/2019 C76.0 [facility]: [id number] 04:17:00 PM EDT [facility] CORDELLReferrer: Car e MATHIEU Funk C76.0 Outpatient Attender: [id number] 04/07/2019 [facility] Werner, 12:14:00 PM EDT [facility] RAdmitter: [id number] Care Co Rodriguez Ritter Outpatient 03/26/2019 [facility] 02:45:00 PM EDT Medical C enter Attender: [facility] 03/26/2019 NEXT GEN ([facility] 11:54:00 AM EDT Marcela Wolfe edical - 03/26/2019 Center) 11:54:00 AM EDT Outpatient 03/26/2019 [facility] 12:00:00 AM EDT Medical C enter Outpatient Attender: DANAY 03/23/2019 C10.9 [facility]Ad[facility]: LEFKOVITZ, 06:00:00 AM EDT R22.0 [facility] ZVIReferrer: [facility] C10.9 R22.0 Outpatient Attender: RODOLFO Valenzuela 02/24/2019 10:19:00 [facility] CORDELLAdmitter: RODOLFO SINGLETON EDT Medical Center JOHNReferrer: RODOLFO SINGLETON CORDELL Outpatient 02/16/2019 03:20:00 [facility] EDT Medical Center Outpatient Attender: DION COTTON H 02/16/2019 01:47:00 [facility] DION RAdmitter: DION PM EDT [facility] LULA DION R Attender: Dion Lula 02/16/2019 01:47:00 NEXTGEN ([facility] EDT - 02/16/2019 [facility] Medical 01:47:00 PM EDT Center) Outpatient 02/16/2019 12:00:00 [facility] EDT Medical [place] Attender: Kyler [facility]ts [facility] 02/11/2019 03:15:00 NEXTGEN ([facility] EDT - 02/11/2019 [facility] Medical 03:15:00 PM EDT Center) Outpatient 01/30/2019 03:05:00 [facility] EDT Medical [place] Outpatient Attender: KRZYSZTOF Valenzuela 01/30/2019 12:10:00 [facility] RABADIAdmitter: AMMIR EDT [facility] RABADIReferrer: KRZYSZTOF ROSA Attender: [facility] 01/30/2019 12:10:00 NEXTGEN ([facility] EDT - 01/30/2019 [facility] Medical 12:10:00 PM EDT Center) Outpatient 01/30/2019 12:00:00 [facility] EDT [facility] Attender: [facility] 01/14/2019 10:43:00 NEXTGEN ([facility] EDT - 01/14/2019 [facility] 10:43:00 AM EDT Center) Outpatient 01/02/2019 11:17:00 [facility] ( [facility]) Patient admitted. Attender: [facility] 12/31/2018 04:13:00 N EXTGEN ([facility] EDT - 12/31/2018 [facility] Medical 04:13:00 PM EDT Center) Attender: [facility] 12/30/2018 04:08:00 N EXTGEN ([facility] PM EDT - 12/30/2018 [facility] 04:08:00 PM EDT Center) Attender: [facility] 12/03/2018 02:32:00 N EXTGEN ([facility] PM EDT - 12/03/2018 [facility] 02:32:00 PM EDT Center) Attender: [facility] 11/03/2018 12:34:00 N EXTGEN ([facility] PM EDT - 11/03/2018 [facility] 12:34:00 PM EDT Center) Outpatient 10/22/2018 11:40:00 [facility] Outpatient 10/22/2018 12:00:00 [facility] Outpatient Attender: AMMIRodriguez H 10/21/2018 11:20:00 [facility] RABADIAdmitter: AM EDT Medical C enter AMMIR RABADIReferrer: AMMIR SHELLEY OutpatientOFFICE/OU Attender: Kyler [address] [place] [address] 10/21/2018 11:20:00 NEXTGEN ([facility] TPATIENT VISIT, EST Menla AM EDT - 10/21/2018 [facility] 11:20:00 AM EDT Center) Outpatient 10/21/2018 11:18:00 [facility] Outpatient 10/21/2018 12:00:00 [facility] Attender: Kyler [address] [place] [address] 10/09/2018 06:54:00 N EXTGEN ([facility] PM EDT - 10/09/2018 [facility] 06:54:00 PM EDT Center) Outpatient Attender: AMMIR H 10/08/2018 10:09:00 [facility] RABADIAdmitter: AM EDT Medical C enter AMMIR RABADIReferrer: AMMIR SHELLEY OutpatientOFFICE/OU Attender: [facility] 10/08/2018 10:09:00 NEXTGEN ([facility] TPATIENT VISIT, EST [place] AM EDT - 10/08/2018 [facility] 10:09:00 AM EDT Center) Outpatient 10/08/2018 12:00:00 [facility] Outpatient 10/03/2018 02:23:00 [facility] PM EST Medical Center Outpatient 10/03/2018 12:00:00 [facility] EST Medical Center OutpatientOFFICE/OU Attender: Kyler [address] [place] [address] 09/04/2018 11:34:00 NEXTGEN ([facility] TPATIENT VISIT, EST [place] AM EST - 09/04/2018 [facility] 11:34:00 AM EST Center) Attender: Kyler [address] [place] [address] 07/25/2018 11:03:00 N EXTGEN ([facility] AM EST - 07/25/2018 [facility] 11:03:00 AM EST Center) OutpatientOFFICE/OU Attender: Kyler [address] [place] [address] 06/26/2018 01:05:00 NEXTGEN ([facility] TPATIENT VISIT, EST [place] PM EST - 06/26/2018 [facility] 01:05:00 PM EST Center) Attender: Kyler [address] [place] [address] 05/06/2018 10:58:00 N EXTGEN ([facility] AM EDT - 05/06/2018 [facility] 10:58:00 AM EDT Center) Attender: Kyler [address] [place] [address] 04/22/2018 02:29:00 N EXTGEN ([facility] PM EDT - 04/22/2018 [facility] 02:29:00 PM EDT Center) Attender: [address] 03/13/2018 04:05:00 N EXTGEN ([facility] PM EDT - 03/13/2018 [facility] 04:05:00 PM EDT Center) Attender: [address] 03/07/2018 02:05:00 N EXTGEN ([facility] PM EDT - 03/07/2018 [facility] 02:05:00 PM EDT Center) Attender: [address] 02/26/2018 10:49:00 N EXTGEN ([facility] AM EDT - 02/26/2018 [facility] 10:49:00 AM EDT Center) [facility] 02/13/2018 03:26:00 N EXTGEN ([facility] PM EDT - 02/13/2018 [facility] 03:26:00 PM EDT Center) Attender: Kyler [address] [place] [address] 02/05/2018 11:04:00 N EXTGEN ([facility] AM EDT - 02/05/2018 [facility] 11:04:00 AM EDT Center) Attender: Kyler [address] [place] [address] 01/22/2018 11:18:00 N EXTGEN ([facility] AM EDT - 01/22/2018 [facility] 11:18:00 AM EDT Center) Attender: Kyler [address] [place] [address] 11/05/2017 02:53:00 N EXTGEN ([facility] PM EDT - 11/05/2017 [facility] 02:53:00 PM EDT Center) Attender: Kyler [address] [place] [address] 08/07/2017 10:55:00 N EXTGEN ([facility] AM EST - 08/07/2017 [facility] 10:55:00 AM EST Center) Attender: Kyler [address] [place] [address] 07/24/2017 10:43:00 N EXTGEN ([facility] - 07/24/2017 [facility] 10:43:00 AM EST Center) Attender: Kyler [address] [place] [address] 07/10/2017 10:15:00 N EXTGEN ([facility] - 07/10/2017 [facility] 10:15:00 AM EST Center) Attender: Kyler [address] [place] [address] 06/26/2017 11:06:00 N EXTGEN ([facility] - 06/26/2017 [facility] 11:06:00 AM EST Center) Medications Medication Brand Start Product Dose Route [facility] Indications Reaction Description Data Name Date Form Instructions Instructions Source(s) ferrous ferrou ORAL active take 1 NEXT GEN sulfate 325 s 2020 {tbl} tablet by (S aint MG Oral sulfat 12:00: oral route 2 Marcela Tablet e 325 00 AM times every Medi marquise ferrous mg (65 EDT day Center) sulfate 325 mg mg (65 mg iron) iron) tablet tablet atorvastati atorva .00 ORAL active take 1 NEXTGEN n 40 MG statin 2020 {tbl} tablet by (Claude nt Oral Tablet 40 mg 12:00: oral route Marcela atorvastati tablet 00 AM every day Medical n 40 mg EDT Center) tablet [facility] 999 UNK active Gastrov iew [place] PO Contra view 2020 mL PO Contrast r C ounty PO 01:48: (Adult) 1000 Healt h Contra 59 PM mL PO Care EDT Corporatio n Medication administered onsite 0.9% 0.9% 02/08/2020 1000 mL UNK active 0.9% NaC l [place] NaCl IV NaCl IV 01:48:59 PM IV 1000 mL; [facility] EDT IV rate: Care Bolus over Corporati on 30 minutes Medication administered onsite POLYETHYLENE Miralax 17 01/18/2020 1.00 ORAL active POLYETHYLENE NEXTGEN GLYCOL 3350 gram oral 12:00:00 AM packet GLYCOL 3350 (Saint 142 MG/ML Oral powder EDT 14833 MG Marcela Solution packet Powder for Med ical [Miralax] Oral Solution C enter) Miralax 17 [Miralax] gram oral powder packet Acetaminophen Mapap 01/18/2020 2.00 ORAL active Ac etaminophen NEXTGEN 500 MG Oral (acetamino 12:00:00 AM {capsul 500 MG Oral ([facility] Capsule phen) 500 EDT e} Capsule Luis E phs [Mapap] Mapap mg capsule [Mapa p] Medical (acetaminophen Cente r) ) 500 mg capsule chlorhexidine Peridex 01/18/2020 15.00 TRANSMU active chlorhexidine NEXTGEN gluconate 1.2 0.12 % 12:00:00 AM mL COSAL g luconate 1.2 (Saint MG/ML mouthwash EDT MG/ML Marcela Mouthwash Mouthwash Medic al [Peridex] [Peridex] Cente r) Peridex 0.12 % mouthwash Guaifenesin 20 Tussin 100 10/26/2019 10.00 ORAL active take 10 NEXTGEN MG/ML Oral mg/5 mL 12:00:00 AM mL mill iliter by ([facility] Solution oral EDT oral route [facility] Tussin 100 liquid every 4 hour s Medical mg/5 mL oral as needed Ce nter) liquid Azithromycin azithromyc 10/26/2019 2.00 ORAL complete take 2 tablet NEXTGEN 250 MG Oral in 250 mg 12:00:00 AM {tbl} d by oral route (Saint Tablet tablet EDT every day for Bárbara sephs azithromycin 1 day then 1 Medical 250 mg tablet tablet (250 Center) mg) by oral route once daily for 4 days Amoxicillin amoxicilli 09/04/2019 complete 10ml by mouth NEXTGEN 120 MG/ML / n 600 12:00:00 AM d twice daily ([facility] Clavulanate mg-potassi EST Bár[place] sephs 8.58 MG/ML Medical Oral clavulanat Center) Suspension e 42.9 amoxicillin mg/5 mL 600 oral mg-potassium suspension clavulanate 42.9 mg/5 mL oral suspension Mylanta Lido Mylanta 06/25/2019 10 mL UNK active Mylanta Lido [place] Lido 01:59:02 PM Benadryl e r [facility] ([facility] Mouthwash) 10 Care mL PO Corporati on Medication administered onsite 0.9% 0.9% 06/25/2019 1000 mL UNK active 0.9% NaC l [place] NaCl IV NaCl IV 01:42:06 PM IV 1000 mL; Critical access hospital IV rate: Care Bolus over Corporati on 30 minutes Medication administered onsite MORphine MORphine 06/05/2019 4 mg UNK active MOR phine [place] Sulfate Inj Sulfate Inj 02:31:32 PM Sulfate Critical access hospital Injection 4 Care mg IVP Corporation Medication administered onsite Fluconazole Fluconazole 06/05/2019 200 UNK active Fluconazole [place] (Difluca (Difluca 01:57:27 PM mg (Difl ucan) [facility] Injection Corporatio n 200 mg IVPB ; infuse over 1 hour Medication administered onsite 0.9% NaCl 0.9% NaCl 06/05/2019 1000 mL UNK active 0.9% NaCl [place] IV IV 01:22:28 PM IV 1000 Count [facility] mL ; IV Care rate: Corporation 1000 mL/hr Medication administered onsite 0.9% 0.9% 06/05/2019 1000 mL UNK active 0.9% NaC l [place] NaCl IV NaCl IV 10:23:49 AM IV 1000 mL Critical access hospital ; IV rate: Care Bolus over Corporati on 30 minutes Medication administered onsite Thiamine 100 MG Vitamin B-1 05/28/2019 completed [place] Oral Tablet (Thiamine HCl) 12:00:00 AM [facility] Vitamin B-1 [100 mg EDT Healt h Care (Thiamine HCl) Tablet]: 1 Corporation [100 mg Tablet Oral Tablet]: 1 DAILY Tablet Oral DAILY atorvastatin 20 Atorvastatin 05/28/2019 completed [place] MG Oral Tablet [20 mg 12:00:00 AM [facility] Atorvastatin Tablet]: 1 EDT H ealth Care [20 mg Tablet]: Tablet Oral Corporation 1 Tablet Oral DAILY DAILY Thiamine 100 MG Vitamin B-1 05/28/2019 completed [place] Oral Tablet (Thiamine HCl) 12:00:00 AM [facility] Vitamin B-1 [100 mg EDT Healt h Care (Thiamine HCl) Tablet]: 1 Corporation [100 mg Tablet Oral Tablet]: 1 DAILY Tablet Oral DAILY Multivitamin [id number] 05/28/2019 completed [place] [Tablet]: 1 12:00:00 AM Priscila ounty Tablet Oral [facility] Health C are DAILY Corporation Folic Acid 1 MG Folic Acid [1 05/28/2019 completed [place] Oral Tablet mg Tablet]: 1 12:00:00 AM [facility] Folic Acid [1 Tablet Oral EDT Health Care mg Tablet]: 1 DAILY Corpo ration Tablet Oral DAILY Thiamine 100 MG Vitamin B-1 05/28/2019 completed [place] Oral Tablet (Thiamine HCl) 12:00:00 AM [facility] Vitamin B-1 [100 mg EDT Healt h Care (Thiamine HCl) Tablet]: 1 Corporation [100 mg Tablet Oral Tablet]: 1 DAILY Tablet Oral DAILY Folic Acid 1 MG Folic Acid [1 05/28/2019 completed [place] Oral Tablet mg Tablet]: 1 12:00:00 AM [facility] Folic Acid [1 Tablet Oral EDT Health Care mg Tablet]: 1 DAILY Corpo ration Tablet Oral DAILY Folic Acid 1 MG Folic Acid [1 05/28/2019 completed [place] Oral Tablet mg Tablet]: 1 12:00:00 AM [facility] Folic Acid [1 Tablet Oral EDT Health Care mg Tablet]: 1 DAILY Corpo ration Tablet Oral DAILY Multivitamin [id number] 05/28/2019 completed [place] [Tablet]: 1 12:00:00 AM Priscila ounty Tablet Oral [facility] Health C are DAILY Corporation atorvastatin 20 Atorvastatin 05/28/2019 completed [place] MG Oral Tablet [20 mg 12:00:00 AM [facility] Atorvastatin Tablet]: 1 EDT [facility] Care [20 mg Tablet]: Tablet Oral Corporation 1 Tablet Oral DAILY DAILY atorvastatin 20 Atorvastatin 05/28/2019 completed [place] MG Oral Tablet [20 mg 12:00:00 AM [facility] Atorvastatin Tablet]: 1 EDT [facility] Care [20 mg Tablet]: Tablet Oral Corporation 1 Tablet Oral DAILY DAILY Multivitamin [id number] 05/28/2019 completed [place] [Tablet]: 1 12:00:00 AM C ounty Tablet Oral EDT Health C are DAILY Corporation Naproxen sodium naproxen 04/10/2019 1.00 ORAL completed take NEXTGEN 550 MG Oral sodium 550 mg 12:00:00 AM {tbl} 1 ( Tablet naproxen tablet EDT table J osephs sodium 550 mg t by [facility] tablet oral Center) route ever y 12 hours as neede d Acyclovir 400 acyclovir 400 02/11/2019 completed take NEXTGEN MG Oral Tablet mg tablet 12:00:00 AM 1 ( acyclovir 400 EDT table Dereje hs mg tablet t by Medical oral Center) route every 8hrs Sulfamethoxazol Bactrim DS 800 01/30/2019 1.00 ORAL complete d Sulfa NEXTGEN e 800 MG / mg-160 mg 12:00:00 AM {tbl} m etho ( Trimethoprim tablet EDT xazol Luis E phs 160 MG Oral e 800 Medical Tablet MG / Center) [Bactrim] Trime Bactrim DS 800 thopr mg-160 mg im tablet 160 MG Oral Table t [Bact rim] Fluconazole 100 fluconazole 01/30/2019 1.00 ORAL completed take NEXTGEN MG Oral Tablet 100 mg tablet 12:00:00 AM {tbl} 1 ( fluconazole 100 EDT table Refug[facility] ephs mg tablet t by Medical oral Center) route ever y day chlorhexidine Peridex 0.12 % 01/30/2019 15.00 TRANS complete d chlor NEXTGEN gluconate 1.2 mouthwash 12:00:00 AM mL MUCOS hexid ([facility] MG/ML Mouthwash EDT AL ine Luis E phs [Peridex] gluco Medical Peridex 0.12 % ruy Cente r) mouthwash 1.2 MG/ML Mouth wash [Rebeca dex] Mefloquine mefloquine 250 01/14/2019 1.00 ORAL completed take NEXTGEN Hydrochloride mg tablet 12:00:00 AM {tbl} 1 ([facility] 250 MG Oral EDT table Marcela Tablet t by Medical mefloquine 250 oral Cente r) mg tablet route ever y week start 1 week befor e depar ture to endem ic area; take with food and at least 8 oz. of water chlorhexidine Peridex 0.12 % 12/31/2018 15.00 TRANS complete d chlor NEXTGEN gluconate 1.2 mouthwash 12:00:00 AM mL MUCOS hexid ([facility] MG/ML Mouthwash EDT AL ine Luis E phs [Peridex] gluco Medical Peridex 0.12 % ruy Cente r) mouthwash 1.2 MG/ML Mouth wash [Rebeca dex] Minocycline 100 minocycline 12/30/2018 1.00 ORAL completed take NEXTGEN MG Oral Capsule 100 mg capsule 12:00:00 AM {caps 1 ([facility] minocycline 100 EDT ule} capsu [facility] ephs mg capsule le by [facility] oral [place]) route ever y 12 hours atorvastatin 40 atorvastatin 12/03/2018 1.00 ORAL completed take NEXTGEN MG Oral Tablet 40 mg tablet 12:00:00 AM {tbl} 1 ([facility] atorvastatin 40 EDT table [facility] ephs mg tablet t by [facility]) route ever y day atorvastatin 40 atorvastatin 11/03/2018 1.00 ORAL completed take NEXTGEN MG Oral Tablet 40 mg tablet 12:00:00 AM {tbl} 1 ([facility] atorvastatin 40 EDT table [facility]io ephs mg tablet t by [facility]) route ever y day chlorhexidine Peridex 0.12 % 10/21/2018 15.00 TRANS complete d chlor NEXTGEN gluconate 1.2 mouthwash 12:00:00 AM mL MUCOS hexid (Saint MG/ML Mouthwash EDT AL rusty Luis E phs [Peridex] gluco Medical Peridex 0.12 % ruy Cente r) mouthwash 1.2 MG/ML Mouth wash [Rebeca dex] Minocycline 100 minocycline 10/21/2018 1.00 ORAL completed take NEXTGEN MG Oral Capsule 100 mg capsule 12:00:00 AM {caps 1 ([facility] minocycline 100 EDT ule} capsu [place] eph[facility] mg capsule le by [facility] oral [place]) route ever y 12 hours Minocycline 100 minocycline 10/09/2018 1.00 ORAL completed take NEXTGEN MG Oral Capsule 100 mg capsule 12:00:00 AM {caps 1 ([facility] minocycline 100 EDT ule} capsu [facility] ephs mg capsule le by [facility]) route ever y 12 hours Tetracycline tetracycline 10/08/2018 1 ORAL completed take NEXTGEN 250 MG Oral 250 mg capsule 12:00:00 AM {caps 1 ([facility] Capsule EDT ule} abu Marcela tetracycline le by Medica l 250 mg capsule oral Cente r) route ever y 2 hours multivitamin multivitamin 09/04/2018 active take NEXTGEN tablet 12:00:00 AM 1 ([facility] EST table Marcela t by Medical oral Center) route ever y day with food Sulfamethoxazol Bactrim DS 800 09/04/2018 1.00 ORAL complete d Sulfa NEXTGEN e 800 MG / mg-160 mg 12:00:00 AM {tbl} m etho ([facility] Trimethoprim tablet EST xazol Luis E phs 160 MG Oral e 800 Medical Tablet MG / Center) [Bactrim] Trime Bactrim DS 800 thopr mg-160 mg im tablet 160 MG Oral Table t [Bact rim] Thiamine 100 MG thiamine HCl 09/04/2018 ORAL active take NEXTGEN Oral Tablet (vitamin B1) 12:00:00 AM 1 by ([facility] thiamine HCl 100 mg tablet EST Orsam Medrano (vitamin B1) route Medica l 100 mg tablet once Center ) Folic Acid 1 MG folic acid 1 09/04/2018 1.00 ORAL active take NEXTGEN Oral Tablet mg tablet 12:00:00 AM {tbl} 1 ( folic acid 1 mg EST table [facility] ephs tablet t by Medical oral Center) route ever y day Metronidazole metronidazole 07/25/2018 1.00 ORAL active take NEXTGEN 500 MG Oral 500 mg tablet 12:00:00 AM {tbl} 1 (Saint Tablet EST table Marcela metronidazole t by Medica l 500 mg tablet oral Center ) route ever y 8 hours Naproxen sodium naproxen 07/25/2018 1.00 ORAL completed take NEXTGEN 550 MG Oral sodium 550 mg 12:00:00 AM {tbl} 1 ([facility] Tablet naproxen tablet EST table J osephs sodium 550 mg t by Medica l tablet oral Center) route ever y 12 hours as neede d Mirtazapine 15 mirtazapine 15 06/26/2018 1.00 ORAL completed take NEXTGEN MG Oral Tablet mg tablet 12:00:00 AM {tbl} 1 ([facility] mirtazapine 15 EST table Luis E phs mg tablet t by Medical oral Center) route ever y day befor e bedti me Ciprofloxacin 06/09/2018 999 UNK completed Cipro [place] HCl 500 MG Oral 08:10:01 PM MG fl oxa [facility] HCl Corporation 500 MG Oral Table t TAKE 1 TABLE T TWICE DAILY . Dispe nse: 14 Super visin g physi alonzo: Thi Frye MD Ciprofloxacin 06/09/2018 999 UNK completed Cipro [place] HCl 500 MG Oral 08:10:01 PM MG [facility] Corporation 500 MG Oral Table t TAKE 1 TABLE T TWICE DAILY . Dispe nse: 14 Super visin g physi alonzo: Thi Frye MD MetroNIDAZOLE 06/09/2018 999 UNK completed Metro [place] 500 MG Oral 08:10:01 PM MG [facility] 500 Corporation MG Oral Table t TAKE 1 TABLE T TWICE DAILY UNTIL FINIS HED. Dispe nse: 14 Super visin g physi alonzo: Thi Frye MD MetroNIDAZOLE 06/09/2018 999 UNK completed Metro [place] 500 MG Oral 08:10:01 PM MG [facility] 500 Corporation MG Oral Table t TAKE 1 TABLE T TWICE DAILY UNTIL FINIS HED. Dispe nse: 14 Super visin g physi alonzo: Thi Frye MD MetroNIDAZOLE 06/09/2018 999 UNK completed Metro [place] 500 MG Oral 07:10:01 PM MG [facility] 500 Corporation MG Oral Table t TAKE 1 TABLE T TWICE DAILY UNTIL FINIS HED. Dispe nse: 14 Super visin g physi alonzo: Thi Frye MD MetroNIDAZOLE 06/09/2018 999 UNK completed Metro [place] 500 MG Oral 07:10:01 PM MG [facility] 500 Corporation MG Oral Table t TAKE 1 TABLE T TWICE DAILY UNTIL FINIS HED. Dispe nse: 14 Super visin g physi alonzo: Thi Frye MD Ciprofloxacin 06/09/2018 999 UNK completed Cipro [place] HCl 500 MG Oral 07:10:01 PM MG [facility] Care HCl Corporation 500 MG Oral Table t TAKE 1 TABLE T TWICE DAILY . Dispe nse: 14 Super visin g physi alonzo: Thi Frye MD Ciprofloxacin 06/09/2018 999 UNK completed Cipro [place] HCl 500 MG Oral 07:10:01 PM MG [facility] Care [facility] Corporation 500 MG Oral Table t TAKE 1 TABLE T TWICE DAILY . Dispe nse: 14 Super visin g physi alonzo: Thi Frye MD Folic Acid 1 MG Folic Acid [1 05/12/2018 completed [place] Oral Tablet mg Tablet]: 1 12:00:00 AM [facility] Folic Acid [1 Tablet Oral ED Health Care mg Tablet]: 1 DAILY Corpo ration Tablet Oral DAILY Timolol Maleate [id number] 05/12/2018 completed [place] [0.5 % Drops]: 12:00:00 AM [facility] 1 Drops EDT Health Care Ophthalmic 2 Corpora tion TIMES A DAY Thiamine 100 MG Vitamin B-1 05/12/2018 completed [place] Oral Tablet (Thiamine HCl) 12:00:00 AM [facility] Vitamin B-1 [100 mg EDT [facility] Care (Thiamine HCl) Tablet]: 1 Corporation [100 mg Tablet Oral Tablet]: 1 DAILY Tablet Oral DAILY Polyvinyl Artificial 05/12/2018 completed [place] Alcohol 0.014 Tears (polyvin 12:00:00 AM [facility] ML/ML alc) ED Health Care Ophthalmic (Polyvinyl Cor poration Solution Alcohol) [1.4 Artificial % Drops]: 1 Tears (polyvin Drops alc) (Polyvinyl Ophthalmic 2 Alcohol) [1.4 % TIMES A DAY Drops]: 1 Drops Ophthalmic 2 TIMES A DAY Trazodone Trazodone [100 05/12/2018 completed [place] Hydrochloride mg Tablet]: 1 12:00:00 AM [facility] 100 MG Oral Tablet Oral EDT Health Care Tablet DIRECTED PRN Corpo ration Trazodone [100 insomnia mg Tablet]: 1 Tablet Oral DIRECTED PRN insomnia atorvastatin 20 Atorvastatin 05/12/2018 completed [place] MG Oral Tablet [20 mg 12:00:00 AM [facility] Atorvastatin Tablet]: 1 EDT [facility] Care [20 mg Tablet]: Tablet Oral Corporation 1 Tablet Oral DAILY DAILY latanoprost Latanoprost 05/12/2018 olga Peres 0.05 MG/ML [0.005 % 12:00:00 AM [facility]mic Drops[facility] Drops Corporatio n Latanoprost Ophthalmic 2 [0.005 % TIMES A DAY Drops]: 1 Drops Ophthalmic 2 TIMES A DAY Multivitamin [id number] 05/12/2018 olga Peres [Tablet]: 1 12:00:00 AM C ounty Tablet Oral EDT Health C are DAILY Corporation atorvastatin 40 atorvastatin 05/06/2018 1.00 ORAL completed take NEXTGEN MG Oral Tablet 40 mg tablet 12:00:00 AM {tbl} 1 ([facility] atorvastatin 40 EDT table [facility] ephs mg tablet t by Medical oral Center) route ever y day gabapentin 300 Gabapentin - 04/30/2018 1 ORAL completed Gabap [facility] MG Oral Capsule 300 MG ORAL 12:00:00 AM [facility] Caps[facility] EDT le - 300 Hospital MG ORAL Capsu le Mirtazapine 15 Mirtazapine - 04/30/2018 1 ORAL completed Neda [facility] MG Oral Tablet 15 MG ORAL 12:00:00 AM Table zapin [facility] Tablet EDT t e - Hospital 15 MG ORAL Table t Trazodone traZODone 04/09/2018 1 ORAL completed traZO [facility] Hydrochloride hydrochloride 12:00:00 AM Table Done [facility] 100 MG Oral - 100 MG ORAL EDT t hydr [facility] Hospital Tablet Tablet chlor arash - 100 MG ORAL Table t Mupirocin 0.02 mupirocin 2 % 03/13/2018 TOPIC completed apply NEXTGEN MG/MG Topical topical 12:00:00 AM AL alina velez ([facility] Ointment ointment EDT topic Neel s mupirocin 2 % al Medica l topical route Center) ointment 3 times every day a small amoun t to the affec elvira area Hydroxyzine hydroxyzine 03/07/2018 1 ORAL active take NEXTGEN Hydrochloride HCl 25 mg 12:00:00 AM {tbl} 1 ([facility] 25 MG Oral tablet EDT table Neel s Tablet t by Medical hydroxyzine HCl oral Cent er) 25 mg tablet route ever y day Naproxen sodium naproxen 02/26/2018 1.00 ORAL active take NEXTGEN 550 MG Oral sodium 550 mg 12:00:00 AM {tbl} 1 ([facility] Tablet naproxen tablet EDT table J osephs sodium 550 mg t by Medica l tablet oral Center) route ever y 12 hours as neede d Bisacodyl 5 MG Dulcolax 02/13/2018 2.00 ORAL completed Bisac NEXTGEN Delayed Release (bisacodyl) 5 12:00:00 AM {tbl} odyl ([facility] Oral Tablet mg EDT 5 MG Marcela [Dulcolax] tablet,delayed Trang y Medical Dulcolax release ed Center) (bisacodyl) 5 Relea mg se tablet,delayed Oral release Table t [Dulc olax] POLYETHYLENE Miralax 17 02/13/2018 17 G ORAL completed POLYE NEXTGEN GLYCOL 3350 142 gram/dose oral 12:00:00 AM THYLE ([facility] MG/ML Oral powder EDT NE Marcela Solution GLYCO Medical [Miralax] L Center) Miralax 17 3350 gram/dose oral 20232 powder MG Powde r for Oral Solut ion [Mackenzie lax] Trazodone trazodone 50 02/05/2018 1 ORAL completed take NEXTGEN Hydrochloride mg tablet 12:00:00 AM {tbl} 1 ([facility] 50 MG Oral EDT table Marcela Tablet t by Medical trazodone 50 mg oral Cent er) tablet route ever y day after meals ferrous sulfate ferrous 11/05/2017 1 ORAL active take NEXTGEN 325 MG Oral sulfate 325 mg 12:00:00 AM {tbl} 1 ([facility] Tablet ferrous (65 mg iron) EDT ta ble Marcela sulfate 325 mg tablet t by Med ical (65 mg iron) oral Center) tablet route 2 times every day multivitamin multivitamin 11/05/2017 active take NEXTGEN tablet 12:00:00 AM 1 (Saint EDT table Marcela t by [facility] oral [place]) route ever y day with food Folic Acid 1 MG folic acid 1 11/05/2017 1.00 ORAL active take NEXTGEN Oral Tablet mg tablet 12:00:00 AM {tbl} 1 ([facility] folic acid 1 mg EDT table Refugio ephs tablet t by [facility] oral Center) route ever y day Thiamine 100 MG thiamine HCl 11/05/2017 ORAL active take NEXTGEN Oral Tablet (vitamin B1) 12:00:00 AM 1 by ([facility] thiamine HCl 100 mg tablet EDT Ora l Marcela (vitamin B1) route Medica l 100 mg tablet once Center ) Hydrocortisone hydrocortisone 07/24/2017 completed apply NEXTGEN 25 MG/ML 2.5 % topical 12:00:00 AM by ([facility] Topical Cream cream EST topic Luis E phs hydrocortisone al Medic al 2.5 % topical route Cente r) cream ever y day to the affec elvira area( s) Acetaminophen acetaminophen 06/26/2017 2.00 ORAL completed take NEXTGEN 500 MG Oral 500 mg capsule 12:00:00 AM {caps 2 ([facility] Capsule EST ule} capsu Marcela acetaminophen le by Medic al 500 mg capsule oral Cente r) route ever y 6 hours as neede d Oxycodone Oxycodone [5 completed [place] Hydrochloride 5 mg Tablet]: 5 County MG Oral Tablet MG Oral Q4HPR Health Care Oxycodone [5 mg PRN Pain Corporation Tablet]: 5 MG Oral Q4HPRN PRN Pain Lidocaine Lidocaine completed [place] Hydrochloride Viscous Cou nty 20 MG/ML Mucous (Lidocaine Health Care Membrane HCl) [2 % Corpor ation Topical Cup]: 15 ML Solution Oral Q4H Lidocaine Viscous (Lidocaine HCl) [2 % Cup]: 15 ML Oral Q4H Ondansetron 4 Zofran completed [place] MG Oral Tablet (Ondansetron [place] Zofran HCl) [4 mg Health Care (Ondansetron Tablet]: 4 MG Corporation HCl) [4 mg Oral EVERY 8 Tablet]: 4 MG HOURS PRN Oral EVERY 8 Nausea/Vomitti HOURS PRN ng Nausea/Vomittin g Ondansetron 4 Zofran completed [place] MG Oral Tablet ([place] Zofran HCl) [4 mg Health Care (Ondansetron Tablet]: 4 MG AlphaStripe HCl) [4 mg Oral EVERY 8 Tablet]: 4 MG HOURS PRN Oral EVERY 8 Nausea/Vomitti HOURS PRN ng Nausea/Vomittin g pantoprazole 40 Pantoprazole completed [place] MG Delayed [40 mg TABLET County Release Oral DR]: 40 MG H ealth Care Tablet Oral Q6AM Corporat ion Pantoprazole [[address]]: 40 MG Oral Q6AM atorvastatin 10 atorvastatin 999 oral discontinued atorv [place] MG Oral Tablet MG astat Coun ty [Lipitor] in Butter Ondansetron 4 Zofran completed [place] MG Oral Tablet ([place] Zofran HCl) [4 mg Health Care (Ondansetron Tablet]: 4 MG AlphaStripe HCl) [4 mg Oral EVERY 8 Tablet]: 4 MG HOURS PRN Oral EVERY 8 Nausea/Vomitti HOURS PRN ng Nausea/Vomittin g Diphenhydramine Banophen completed [place] Hydrochloride Allergy Cou nty 2.5 MG/ML Oral (Diphenhydrami Health Care Solution ne HCl) [12.5 Co rporation Banophen mg/5 mL Allergy Suspension]: (Diphenhydramin 15 ML Oral e HCl) [12.5 Q2HPRN PRN mg/5 mL Pain Suspension]: 15 ML Oral Q2HPRN PRN Pain atorvastatin 10 atorvastatin 999 oral completed atorv [place] MG Oral Tablet MG astat Coun ty [Lipitor] in Health Car e AlphaStripe Diphenhydramine Banophen completed [place] Hydrochloride Allergy Cou nty 2.5 MG/ML Oral (Diphenhydrami Health Care Solution ne HCl) [12.5 Co rporation Banophen mg/5 mL Allergy Suspension]: (Diphenhydramin 15 ML Oral e HCl) [12.5 Q2HPRN PRN mg/5 mL Pain Suspension]: 15 ML Oral Q2HPRN PRN Pain Petrolatum 0.41 Aquaphor with completed [place] MG/MG Topical Natural Cou nty Ointment Healing (White H ealth Care Aquaphor with Petrolatum) Corporation Natural Healing [41 % TUBE]: 1 (White Application Petrolatum) [41 Affected Area % TUBE]: 1 Q6H Application Affected Area Q6H Oxycodone Oxycodone [5 completed [place] Hydrochloride 5 mg Tablet]: 5 County MG Oral Tablet MG Oral Q4HPRN Health Care Oxycodone [5 mg PRN Pain Corporation Tablet]: 5 MG Oral Q4HPRN PRN Pain Unable to Unable to 999 UNK completed Unabl [place] Obtain/Drug Obtain/Drug MG e to C ounty Names Unknown Names Unknown Ob [facility] Care n/[employer] Corporation g Names Unkno wn Acetaminophen Acetaminophen completed [place] 500 MG Oral [500 mg Count y Tablet Tablet]: 1 Health Care Acetaminophen Tablet Oral Corporation [500 mg EVERY 6 HOURS Tablet]: 1 PRN Pain Tablet Oral EVERY 6 HOURS PRN Pain pantoprazole 40 Pantoprazole completed [place] MG Delayed [40 mg TABLET County Release Oral DR]: 40 MG H ealt Care Tablet Oral Q6AM Corporat ion Pantoprazole [[address]]: 40 MG Oral Q6AM Acetaminophen Acetaminophen completed [place] 500 MG Oral [500 mg Count y Tablet Tablet]: 1 Health Care Acetaminophen Tablet Oral Corporation [500 mg EVERY 6 HOURS Tablet]: 1 PRN Pain Tablet Oral EVERY 6 HOURS PRN Pain Acetaminophen Acetaminophen completed [place] 500 MG Oral [500 mg Count y Tablet Tablet]: 1 Health Care Acetaminophen Tablet Oral Corporation [500 mg EVERY 6 HOURS Tablet]: 1 PRN Pain Tablet Oral EVERY 6 HOURS PRN Pain Lidocaine Lidocaine completed [place] Hydrochloride Viscous Cou nty 20 MG/ML Mucous (Lidocaine Health Care Membrane HCl) [2 % Corpor ation Topical Cup]: 15 ML Solution Oral Q4H Lidocaine Viscous (Lidocaine HCl) [2 % Cup]: 15 ML Oral Q4H atorvastatin 10 atorvastatin 999 oral discontinued atorv [place] MG Oral Tablet MG astat Coun ty [Lipitor] in Butter pantoprazole 40 Pantoprazole completed [place] MG Delayed [40 mg TABLET County Release Oral DR]: 40 MG H ealth Care Tablet Oral Q6AM Corporat ion Pantoprazole [[address]]: 40 MG Oral Q6AM Ondansetron 4 Zofran completed [place] MG Oral Tablet ([place]et[place] Zofran HCl) [4 mg Health Care (Ondansetron Tablet]: 4 MG Corporation HCl) [4 mg Oral EVERY 8 Tablet]: 4 MG HOURS PRN Oral EVERY 8 Nausea/Vomitti HOURS PRN ng Nausea/Vomittin g atorvastatin 10 atorvastatin 999 oral discontinued atorv [place] MG Oral Tablet MG astat Coun ty [Lipitor] in Butter Discharge completed [facility] Medications are Coun ty unavailable. Blast Ramp Unable to Unable to 999 UNK discontinued Un abl [place] Obtain/Drug Obtain/Drug MG e to C ounty Names Unknown Names Unknown Ob [facility] Care n/Adeel AlphaStripe g Names Unkno wn cetirizine cetirizine 999 oral completed cet ir [place] hydrochloride MG izine Count y 10 MG Oral Health Ca re Capsule AlphaStripe [Wal-Z[employer]] Diphenhydramine Banophen completed [place] Hydrochloride Allergy Cou nty 2.5 MG/ML Oral (Diphenhydrami Health Care Solution ne HCl) [12.5 Co rporation Banophen mg/5 mL Allergy Suspension]: (Diphenhydramin 15 ML Oral e HCl) [12.5 Q2HPRN PRN mg/5 mL Pain Suspension]: 15 ML Oral Q2HPRN PRN Pain Discharge completed [facility] Medications are Coun ty unavailable. Blast Ramp Diphenhydramine Banophen completed [place] Hydrochloride Allergy Cou nty 2.5 MG/ML Oral (Diphenhydrami Health Care Solution ne HCl) [12.5 Co rporation Banophen mg/5 mL Allergy Suspension]: (Diphenhydramin 15 ML Oral e HCl) [12.5 Q2HPRN PRN mg/5 mL Pain Suspension]: 15 ML Oral Q2HPRN PRN Pain Bacitracin 0.5 Bacitracin completed [place] UNT/MG Topical [500 unit/gram County Ointment Packet]: 1 Healt h Care Bacitracin [500 Application Corporation unit/gram Affected Area Packet]: 1 Q12H Application Affected Area Q12H Diphenhydramine Banophen completed [place] Hydrochloride Allergy Cou nty 2.5 MG/ML Oral (Diphenhydrami Health Care Solution ne HCl) [12.5 Co rporation Banophen mg/5 mL Allergy Suspension]: (Diphenhydramin 15 ML Oral e HCl) [12.5 Q2HPRN PRN mg/5 mL Pain Suspension]: 15 ML Oral Q2HPRN PRN Pain Acetaminophen Acetaminophen completed [place] 500 MG Oral [500 mg Count y Tablet Tablet]: 1 Health Care Acetaminophen Tablet Oral Corporation [500 mg EVERY 6 HOURS Tablet]: 1 PRN Pain Tablet Oral EVERY 6 HOURS PRN Pain Insurance Providers Payer name Policy type Policy ID Covered Covered constitution party's Policy P stuart / Coverage constitution party ID relationship to Arevalo Inf ormation type arevalo JORDI [id number] UNK UNK UNK UNK UNK UNK UNK UNK UNK UNK UNK UNK UNK UNK UNK UNK UNK UNK UNK UNK UNK UNK UNK UNK Problems, Conditions, and Diagnoses Code Display Name Description Problem Type Effective Data Sour ce(s) Dates 10421727 Anxiety (finding) Anxiety Complaint 07/29/2008 [facility] 12:00:00 PM Hospital EST [id number] Alcohol dependence Alcohol dependence Complaint [facility] (disorder) 12:00:00 PM Hospital EST Z71.82 Exercise counseling EXERCISE Diagnosis 02/10/2020 [facility] COUNSELING 09:39:00 AM Medical Manuel martin EDT Z71.3 Dietary counseling DIETARY COUNSELING Diagnosis 0 [facility] and surveillance AND SURVEILLANCE 09:39:00 AM [facility] EDT Z68.27 Body mass index BODY MASS INDEX Diagnosis 02/10/2020 [place] (BMI) 27.0-27.9, (BMI) 27.0-27.9, 09:39:00 AM [facility] adult ADULT EDT E78.5 Hyperlipidemia, HYPERLIPIDEMIA, Diagnosis 02/10/2020 [facility] [place] unspecified UNSPECIFIED 09:39:[address] EDT 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 02/10/20 20 [facility] oral cavity, OF ORAL CAVITY, 09:39:00 AM Medica l Center unspecified site UNSPECIFIED SITE EDT Z87.891 Personal history of PERSONAL HISTORY Diagnosis 02/08/2020 [place] nicotine dependence OF NICOTINE 09:42:00 AM [facility] EDT [facility] [employer] E78.00 Pure PURE Diagnosis 02/08/2020 [place] hypercholesterolemia HYPERCHOLESTEROLEM 09:42:0 0 AM [facility] , unspecified [place], UNSPECIFIED EDT Care [employer] 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, OF PALATE, 09:42:00 AM [facility] unspecified UNSPECIFIED EDT Care [employer] Y92.[address] in other OTH PLACE IN OTH Diagnosis 0 [place] non-institutional NON-INSTITUTIONAL 09:42:00 AM [facility] residence as the RESIDENCE PLACE EDT Care place of occurrence Corpo ration of the external cause Y83.3 Surgical operation FORM OF EXTERNAL Diagnosis 02/08/2020 [place] with formation of STOMA CAUSE ABN 09:42:00 AM [facility] external stoma as REACT/COMPL, W/O EDT C are the cause of MISADVNT Corporation abnormal reaction of the patient, or of later complication, without mention of misadventure at the time of the procedure R14.0 Abdominal distension ABDOMINAL Diagnosis 02/08/2020 [place] maria eugenia (gaseous) DISTENSION 09:42:00 AM [facility] (GASEOUS) EDT Care [employer] T85.848A Pain due to other PAIN DUE TO OTHER Diagnosis 02/08/2020 [place] internal prosthetic INTERNAL PROSTH 09:42:00 AM [facility] devices, implants DEV/GRFT, INIT EDT Car e and grafts, initial Corpo ration encounter Z71.89 Other specified OTHER SPECIFIED Diagnosis 01/18/2020 [place] counseling COUNSELING 12:27:00 PM Medical Manuel r EDT K12.30 Oral mucositis ORAL MUCOSITIS Diagnosis 01/18/2020 [place] (ulcerative), (ULCERATIVE), 12:27:00 PM Medical Center unspecified UNSPECIFIED EDT Z00.01 Encounter for ENCOUNTER FOR Diagnosis 01/18/2020 [place] [facility] general adult GENERAL ADULT 12:27:00 PM Medical Center medical examination MEDICAL EXAM W EDT with abnormal ABNORMAL FINDINGS findings Z85.818 Personal history of PRSNL HX OF MALIG Diagnosis 0 [place] malignant neoplasm NEOPLM OF SITE OF 10:37:00 A M [facility] of other sites of LIP, ORAL CAV, and EDT Care lip, oral cavity, PHARYNX Corpora tion and pharynx E78.5 Hyperlipidemia, HYPERLIPIDEMIA, Diagnosis 01/05/2020 [place] maria eugenia unspecified UNSPECIFIED 10:37:00 AM [facility] EDT Care [employer] 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 Diagnosis 01/05/2020 [place] malfunction MALFUNCTION 10:37:00 AM [facility] EDT [facility] [employer] R22.0 Localized swelling, LOCALIZED Diagnosis 09/22/2019 [facility] mass and lump, head SWELLING, MASS AND 06:00:00 AM [facility] LUMP, HEAD EST [facility] [employer] K12.30 Oral mucositis ORAL MUCOSITIS Diagnosis 08/27/2019 [facility] (ulcerative), (ULCERATIVE), 02:05:00 PM [facility] unspecified UNSPECIFIED EST [facility] [employer] C76.1 Malignant neoplasm MALIGNANT NEOPLASM Diagnosis 0 [place] of thorax OF THORAX 03:50:00 PM [facility] EST [facility] [employer] C10.9 Malignant neoplasm MALIGNANT NEOPLASM Diagnosis 0 [place] of oropharynx, OF OROPHARYNX, 06:00:00 AM [facility] unspecified UNSPECIFIED EST [employer] C76.0 Malignant neoplasm MALIGNANT NEOPLASM Diagnosis 9 [place] of head, face and OF HEAD, FACE AND 02:38:00 PM [facility] neck NECK EST [facility] [employer] R63.3 Feeding difficulties FEEDING Diagnosis 07/08/2019 To t [place] DIFFICULTIES 09:36:[address] EST Y92.89 Other specified OTH PLACES THE Diagnosis 06/30/2019 [facility] as the place PLACE OF 04:58:00 PM [facility] of occurrence of the OCCURRENCE OF THE EST Care external cause EXTERNAL CAUSE Corpor ation X58.XXXA Exposure to other EXPOSURE TO OTHER Diagnosis 06/30/2019 [place] specified factors, SPECIFIED FACTORS, 04:58:00 PM [facility] initial encounter INITIAL ENCOUNTER [employer] Y84.2 Radiological RADIOLOG Diagnosis 06/30/2019 [place] procedure and PROC/RADIOTHRPY 04:58:00 PM [facility] radiotherapy as the CAUSE ABN EST Care cause of abnormal REACT/COMPL, W/O C orporation reaction of the MISADVNT patient, or of later complication, without mention of misadventure at the time of the procedure E87.6 Hypokalemia HYPOKALEMIA Diagnosis 06/30/2019 [place] 04:58:00 PM [facility] [employer] Z91.14 Patient's other PATIENT'S OTHER Diagnosis 06/30/2019 [place] noncompliance with NONCOMPLIANCE WITH 04:58:00 PM [facility] medication regimen MEDICATION REGIMEN [facility] [employer] R13.19 Other dysphagia OTHER DYSPHAGIA Diagnosis 06/30/2019 [place] 04:58:00 PM [facility] [place] Care [employer] Z68.1 Body mass index BODY MASS INDEX Diagnosis 06/30/2019 [place] (BMI) 19.9 or less, (BMI) 19.9 OR 04:58:00 PM [facility] [place] adult LESS, ADULT EST Care [employer] E43 Unspecified severe UNSPECIFIED SEVERE Diagnosis 9 [place] protein-calorie PROTEIN-CALORIE 04:58:00 PM [facility] [place] malnutrition MALNUTRITION EST Care [employer] K12.33 Oral mucositis ORAL MUCOSITIS Diagnosis 06/30/2019 [facility] (ulcerative) due to (ULCERATIVE) DUE 04:58:00 P [facility] radiation TO RADIATION EST Care [employer] M62.50 Muscle wasting and MUSCLE WASTING AND Diagnosis 9 [place] atrophy, not ATROPHY, NEC, UNSP 06:13:00 PM [facility] [employer] [facility] elsewhere SITE EST Care classified, Corporation unspecified site F41.0 Panic disorder PANIC DISORDER Diagnosis 06/20/2019 [facility] [episodic paroxysmal (EPISODIC 06:13:00 PM [facility] [place] anxiety] PAROXYSMAL EST Care ANXIETY) [employer] T45.1X5A Adverse effect of ADVERSE EFFECT OF Diagnosis 06/20/2019 [place] antineoplastic and ANTINEOPLASTIC AND 06:13:00 PM [facility] immunosuppressive IMMUNOSUP DRUGS, EST C are drugs, initial INIT Corporatio n encounter F17.210 Nicotine dependence, NICOTINE Diagnosis 06/20/2019 [place] cigarettes, DEPENDENCE, 06:13:00 [facility] uncomplicated CIGARETTES, EST Care UNCOMPLICATED Corporation 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 SECONDARY TO 06:13:00 PM [facility] chemotherapy CANCER EST Care CHEMOTHERAPY Corporation K12.31 Oral mucositis ORAL MUCOSITIS Diagnosis 06/20/2019 [facility] (ulcerative) due to (ULCERATIVE) DUE 06:13:00 P M [facility] antineoplastic TO ANTINEOPLASTIC EST Car e therapy THERAPY Corporation B37.0 Candidal stomatitis CANDIDAL Diagnosis 06/20/2019 [facility] STOMATITIS 06:13:00 PM [facility] EST [facility] [employer] E78.49 OTHER HYPERLIPIDEMIA OTHER Diagnosis 06/[facility]2019 [facility] HYPER[facility]IP[facility] 06:29:00 PM [facility] EST Care [employer] E44.0 Moderate MODERATE Diagnosis 06/01/2019 [place] protein-calorie PROTEIN-CALORIE 06:29:00 PM [facility] [place] malnutrition MALNUTRITION EST [facility] [employer] Z51.11 Encounter for ENCOUNTER FOR Diagnosis 05/28/2019 [facility] antineoplastic ANTINEOPLASTIC 12:08:00 PM Count [facility] chemotherapy CHEMOTHERAPY EDT [facility] [employer] 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 Diagnosis 05/05/2019 [facility] r 12:12:00 PM [facility] EDT Care [facility] Y92.[address] UNSP PL[address] IN Diagnosis 05/05/2019 [facility] as the H[facility]PITAL PLACE 12:12:00 PM [facility] place of occurrence EDT Care of the external Corporati on cause Z51.0 Encounter for ENCOUNTER FOR Diagnosis 05/05/2019 [facility] antineoplastic ANTINEOPLASTIC 12:12:00 PM Count [facility] radiation therapy RADIATION THERAPY EDT [facility] [employer] Z13.84 Encounter for ENCOUNTER FOR Diagnosis 04/16/2019 [facility] screening for dental SCREENING FOR 10:16:00 AM [facility] disorders DENTAL DISORDERS EDT [facility] [employer] R22.0 Localized swelling, LOCALIZED Diagnosis 02/24/2019 [facility] mass and lump, head SWELLING, MASS AND 10:19:00 AM [facility] Center LUMP, HEAD EDT J39.2 Other diseases of OTHER DISEASES OF Diagnosis 02/16/2019 [facility] pharynx PHARYNX 01:47:00 PM Medical Cente r EDT K13.79 Other lesions of OTHER LESIONS OF Diagnosis 02/16/2019 int [place] oral mucosa ORAL MUCOSA 01:47:[address] EDT Surgeries/Procedures Procedure Description Date Indications Data Source(s) OFFICE/OUTPATIENT VISIT, 02/10/2020 NEX TGEN ([facility] EST 12:00:00 AM EDT [facility] - 02/10/2020 Center) 12:00:00 AM EDT Well Visit, 01/18/2020 NEXTGEN ([facility] Est,40-64years 12:00:00 AM EDT [facility] 01/18/2020 [place]) 12:00:00 AM EDT ROUTINE VENIPUNCTURE 01/18/2020 NEXTGEN ([facility] 12:00:00 AM EDT [facility] - 01/18/2020 Center) 12:00:00 AM EDT OFFICE/OUTPATIENT VISIT, 07/08/2019 NEX TGEN ([facility] EST 12:00:00 AM EST [facility] - 07/08/2019 [place]) 12:00:00 AM EST OFFICE/OUTPATIENT VISIT, 10/21/2018 NEX TGEN ([facility] EST 12:00:00 AM EDT [facility] - 10/21/2018 [place]) 12:00:00 AM EDT OFFICE/OUTPATIENT VISIT, 10/08/2018 NEX TGEN ([facility] EST 12:00:00 AM EDT [facility] - 10/08/2018 Center) 12:00:00 AM EDT OFFICE/OUTPATIENT VISIT, 09/04/2018 NEX TGEN ([facility] EST 12:00:00 AM EST [facility] - 09/04/2018 [place]) 12:00:00 AM EST OFFICE/OUTPATIENT VISIT, 06/26/2018 NEX TGEN ([facility] EST 12:00:00 AM EST [facility] - 06/26/2018 [place]) 12:00:00 AM EST Results ID Date Data Source Liver 01/18/2020 02:02:00 PM EDT [facility] Profile.[id number] Name Value Range Interpretation Description Data Sup porting Code Source(s) Document(s ) Alanine 7-50 <content [facility] aminotransferase styleCode="Bold"> Dereje hs [Enzymatic Alanine Medical activity/volume] Aminotransferase Center in Serum or Plasma (ALT) </content>15 IU/L<content styleCode="Italic s"> (7-50 IU/L)</content> Alkaline 38-126 <content [facility] phosphatase styleCode="Bold"> [place] [Enzymatic Alkaline Medical activity/volume] Phosphatase (ALP) Cente r in Serum or Plasma </content>69 IU/L<content styleCode="Italic s"> (38-126 IU/L)</content> Aspartate 17-59 <content [facility] aminotransferase styleCode="Bold"> [place]reje hs [Enzymatic Aspartate Medical activity/volume] Aminotransferase Center in Serum or Plasma (AST) </content>26 IU/L<content styleCode="Italic s"> (17-59 IU/L)</content> Bilirubin.total 0.2-1.3 <content [facility] [Mass/volume] in styleCode="Bold"> [place] [facility] Serum or Plasma Bilirubin Total Medical </content>0.3 Center MG/DL<content styleCode="Italic s"> (0.2-1.3 MG/DL)</content> Albumin 3.5-5.0 <content [facility] [Mass/volume] in styleCode="Bold"> [facility]re[place] hs Serum or Plasma Albumin Medical </content>4.3 Center G/DL<content styleCode="Italic s"> (3.5-5.0 G/DL)</content> ID Date Data Source LIPID.[id number] 01/18/2020 02:02:00 PM EDT [facility] Name Value Range Interpretation Description Data Sup porting Code Source(s) Document(s ) Cholesterol -<200 Above high normal <content [facility] [Mass/volume] in styleCode="[facility] Serum or Plasma d">Cholesterol Medical </content>230 Center MG/DL H<content styleCode="Karla lics"> (-<200 MG/DL)</conten t> UNK > 60 Below low normal <content Saint styleCode="Farnaz Marcela d">HDL- Medical Cholesterol Center </content>27 MG/DL L<content styleCode="Karla lics"> (> 60 MG/DL)</conten t> Triglyceride < 150 Above high normal <content [facility] [Mass/volume] in styleCode="[facility] Serum or Plasma d">Triglycerid Medical es Center </content>234 MG/DL H<content styleCode="Karla lics"> (< 150 MG/DL)</conten t> UNK < 100 Above high normal <content Saint styleCode="Farnaz Marcela d">LDL-Cholest [facility] </content>156 MG/DL H<content styleCode="Karla lics"> (< 100 MG/DL)</conten t> ID Date Data Source Hormones.[id number] 01/18/2020 02:02:00 PM EDT [facility] Name Value Range Interpretation Description Data Sup porting Code Source(s) Document(s ) Thyrotropin 0.465-4. <content [facility] [Units/volume] 68 styleCode="Farnaz Marcela in Serum or d">Thyroid Medical Plasma by [facility] Center Detection Hormone limit <= 0.05 </content>1.99 mIU/L MIU/L<content styleCode="Karla lics"> (0.465-4.68 MIU/L)</conten t> ID Date Data Source HematologySpeci.[id number] 01/18/2020 02:02:00 PM EDT [facility] 0-0400 Name Value Range Interpretation Description Data Sup porting Code Source(s) Document(s ) Erythrocyte < 20 Above high normal <content [facility] sedimentation styleCode="Bold" Marcela rate by >Erythrocyte [facility] method Rate (ESR) </content>35 MM/hr H<content styleCode="Itali cs"> (< 20 MM/hr)</content> ID Date Data Source HematologyRou.[id number] 01/18/2020 02:02:00 PM EDT [facility] 0400 Name Value Range Interpretation Description Data Sup porting Code Source(s) Document(s ) Leukocytes 4.4-11.0 <content [facility] [#/volume] in styleCode="Bold Marcela Blood by ">White Blood Medical Automated count Cell Count Center </content>4.86 KCUMM<content styleCode="Ital ics"> (4.4-11.0 KCUMM)</content > Hematocrit 41.0-53. Below low normal <content [facility] [Volume 0 styleCode="Bold Marcela Fraction] of ">Hematocrit Medical Blood by </content>36.6 Center Automated count % L<content styleCode="Ital ics"> (41.0-53.0 %)</content> Erythrocytes 4.4-5.9 Below low normal <content [facility] [#/volume] in styleCode="Bold Marcela Blood by ">Red Blood Medical Automated count Cell Count Center </content>4.05 MCUMM L<content styleCode="Ital ics"> (4.4-5.9 MCUMM)</content > Hemoglobin 13.5-17. Below low normal <content [facility] [Mass/volume] in 5 styleCode="Bold Marcela Blood ">Hemoglobin Medical </content>13.0 Center G/DL L<content styleCode="Ital ics"> (13.5-17.5 G/DL)</content> Platelets 130-400 <content Saint [#/volume] in styleCode="Bold [place] Blood by ">Platelet Medical Automated count Count Center </content>273 KCUMM<content styleCode="Ital ics"> (130-400 KCUMM)</content > Erythrocyte 11.5-14. <content [facility] distribution 5 styleCode="Bold Marcela width [Ratio] by ">Red Cell Medical Automated count Distribution Center Width </content>13.3 %<content styleCode="Ital ics"> (11.5-14.5 %)</content> Erythrocyte mean 80.0-100 <content [facility] corpuscular .0 styleCode="Bold Marcela volume [Entitic ">Mean Medical volume] by Corpuscular Center Automated count Volume </content>90.4 FL<content styleCode="Ital ics"> (80.0-100.0 FL)</content> Erythrocyte mean 26.0-34. <content [facility] corpuscular 0 styleCode="Bold Marcela hemoglobin ">Mean Medical [Entitic mass] Corposcular Center by Automated Hemoglobin count </content>32.1 PG<content styleCode="Ital ics"> (26.0-34.0 PG)</content> Erythrocyte mean 32.0-37. <content [facility] corpuscular 0 styleCode="Bold Marcela hemoglobin ">Mean Corpus. Medical concentration Hgb Center [Mass/volume] by Concentration Automated count (MCHC) </content>35.5 G/DL<content styleCode="Ital ics"> (32.0-37.0 G/DL)</content> Neutrophils 36-66 <content [facility] [#/volume] in styleCode="Bold Marcela Blood by ">Neutrophil Medical Automated count </content>62.6 Center %<content styleCode="Ital ics"> (36-66 %)</content> Platelet mean 8.0-11.0 <content [facility] volume [Entitic styleCode="Bold Marcela volume] in Blood ">Mean Platelet Medical by Automated Volume Center count </content>9.8 FL<content styleCode="Ital ics"> (8.0-11.0 FL)</content> UNK 1.0-4.8 <content Saint styleCode="Bold Marcela ">Lymphocyte Medical Count Center </content>1.15 KCUMM<content styleCode="Ital ics"> (1.0-4.8 KCUMM)</content > UNK 1.6-7.3 <content Saint styleCode="Bold Marcela ">Neutrophil Medical Count Center </content>3.04 KCUMM<content styleCode="Ital ics"> (1.6-7.3 KCUMM)</content > Lymphocytes 24.0-44. Below low normal <content [facility] [#/volume] in 0 styleCode="Bold Marcela Blood by ">Lymphocyte Medical Automated count </content>23.7 Center % L<content styleCode="Ital ics"> (24.0-44.0 %)</content> Monocytes 3.0-10.0 Above high <content [facility] [#/volume] in normal styleCode="Bold Marcela Blood by ">Monocyte Medical Automated count </content>11.9 Center % H<content styleCode="Ital ics"> (3.0-10.0 %)</content> Eosinophils 0-5.0 <content Saint [#/volume] in styleCode="Bold Marcela Blood by ">Eosinophil Medical Automated count </content>1.2 Center %<content styleCode="Ital ics"> (0-5.0 %)</content> UNK 0.0-0.6 <content Saint styleCode="Bold Marcela ">Eosinophil Medical Count Center </content>0.06 KCUMM<content styleCode="Ital ics"> (0.0-0.6 KCUMM)</content > UNK 0.2-0.9 <content [facility] styleCode="Bold Marcela ">Monocyte Medical Count Center </content>0.58 KCUMM<content styleCode="Ital ics"> (0.2-0.9 KCUMM)</content > UNK 0.0-0.3 <content [facility] styleCode="Bold Marcela ">Basophil Medical Count Center </content>0.01 KCUMM<content styleCode="Ital ics"> (0.0-0.3 KCUMM)</content > UNK 0-0.1 <content Saint styleCode="Bold Marcela ">Immature Medical Granulocyte Center Count </content>0.02 KCUMM<content styleCode="Ital ics"> (0-0.1 KCUMM)</content > UNK 0.0 <content Saint styleCode="Bold Marcela ">Nucleated Red Medical Blood Cell Center Count </content>0.00 KCUMM<content styleCode="Ital ics"> (0.0 KCUMM)</content > UNK 0 <content Saint styleCode="Bold Marcela ">Nucleated Red Medical Blood Cell Center </content>0.0 /100<content styleCode="Ital ics"> (0 /100)</content> Basophils 0.0-1.0 <content [facility] [#/volume] in styleCode="Bold Marcela Blood by ">Basophil Medical Automated count </content>0.2 Center %<content styleCode="Ital ics"> (0.0-1.0 %)</content> UNK < 1 <content Saint styleCode="Bold Marcela ">Immature Medical Granulocyte Center Ratio </content>0.4 %<content styleCode="Ital ics"> (< 1 %)</content> ID Date Data Source GFR(Creatinine).[id number] 01/18/2020 02:02:00 PM EDT [facility] 0-0400 Name Value Range Interpretation Code Description Data Jazzmine rce(s) Supporting Document(s ) UNK > 60 <content [facility] styleCode="Bold"> Medical Cent er EGFR </content>114 GFR<content styleCode="Italic s"> (> 60 GFR)</content> ID Date Data Source ChemistrySpecia.[id number] 01/18/2020 02:02:00 PM EDT [facility] 0-0400 Name Value Range Interpretation Description Data Sup porting Code Source(s) Document(s ) Cobalamin 239-931 Above high normal <content Saint (Vitamin B12) styleCode="Farnaz Marcela [Mass/volume] d">Vitamin B12 Medical in Serum or </content>> Center Plasma 1000 PG/ML H<content styleCode="Karla lics"> (239-931 PG/ML)</conten t> ID Date Data Source ALYCECCDA.[id number] 01/18/2020 02:02:00 PM EDT [facility] -0400 Name Value Range Interpretation Description Data Sup porting Code Source(s) Document(s ) UNK >= 1.0 <content [facility] styleCode="Bold Medical ">AG Ratio Center </content>1.4 <content styleCode="Ital ics"> (>= 1.0 )</content> UNK 2.3-3.5 <content [facility] styleCode="Bold Medical ">Globulin Center </content>3.1 G/DL<content styleCode="Ital ics"> (2.3-3.5 G/DL)</content> UNK 4.2-5.8 <content [facility] styleCode="Bold Medical ">Hemoglobin Center A1C </content>5.8 %<content styleCode="Ital ics"> (4.2-5.8 %)</content> Protein 6.3-8.2 <content [facility] [Mass/volum styleCode="Bold Medical e] in Serum ">Total Protein Center or Plasma </content>7.4 G/DL<content styleCode="Ital ics"> (6.3-8.2 G/DL)</content> ID Date Data Source [facility].[id number] 01/18/2020 02:02:00 PM EDT [facility] Name Value Range Interpretation Description Data Sup porting Code Source(s) Document(s ) Sodium 137-145 Below low <content [facility] [Moles/volume] in normal styleCode="Bold"> [facility] Serum or Plasma Sodium Medical </content>136 Center MEQ/L L<content styleCode="Italic s"> (137-145 MEQ/L)</content> Chloride 98-107 <content [facility] [Moles/volume] in styleCode="Bold"> [facility] Serum or Plasma Chloride Medical </content>102 Center MEQ/L<content styleCode="Italic s"> (98-107 MEQ/L)</content> Carbon dioxide, 22-30 <content [facility] total styleCode="Bold"> Marcela [Moles/volume] in Carbon Dioxide Medical Serum or Plasma </content>29 Center MEQ/L<content styleCode="Italic s"> (22-30 MEQ/L)</content> Potassium 3.5-5.3 <content [facility] [Moles/volume] in styleCode="Bold"> [facility] Serum or Plasma Potassium Medical </content>4.6 Center MEQ/L<content styleCode="Italic s"> (3.5-5.3 MEQ/L)</content> Glucose 74-106 <content [facility] [Mass/volume] in styleCode="Bold"> Dere[facility] hs Serum or Plasma Glucose Medical </content>78 Center MG/DL<content styleCode="Italic s"> (74-106 MG/DL)</content> UNK 9-20 <content [facility] styleCode="Bold"> Marcela BUN </content>19 Medical MG/DL<content Center styleCode="Italic s"> (9-20 MG/DL)</content> Creatinine 0.5-1.3 <content [facility] [Mass/volume] in styleCode="Bold"> Dereje hs Serum or Plasma Creatinine Medical </content>0.9 Center MG/DL<content styleCode="Italic s"> (0.5-1.3 MG/DL)</content> Calcium 8.4-10. <content [facility] [Mass/volume] in 2 styleCode="Bold"> Dereje hs Serum or Plasma Calcium Medical </content>10.1 Center MG/DL<content styleCode="Italic s"> (8.4-10.2 MG/DL)</content> Aspartate 17-59 <content [facility] aminotransferase styleCode="Bold"> Dereje hs [Enzymatic Aspartate Medical activity/volume] Aminotransferase Center in Serum or Plasma (AST) </content>26 IU/L<content styleCode="Italic s"> (17-59 IU/L)</content> UNK > 60 <content [facility] styleCode="Bold"> [facility] EGFR Medical </content>114 Center GFR<content styleCode="Italic s"> (> 60 GFR)</content> Alanine 7-50 <content [facility] aminotransferase styleCode="Bold"> Dereje hs [Enzymatic Alanine Medical activity/volume] Aminotransferase Center in Serum or Plasma (ALT) </content>15 IU/L<content styleCode="Italic s"> (7-50 IU/L)</content> Alkaline 38-126 <content [facility] phosphatase styleCode="Bold"> Marcela [Enzymatic Alkaline Medical activity/volume] Phosphatase (ALP) Cente r in Serum or Plasma </content>69 IU/L<content styleCode="Italic s"> (38-126 IU/L)</content> Bilirubin.total 0.2-1.3 <content [facility] [Mass/volume] in styleCode="Bold"> Dereje hs Serum or Plasma Bilirubin Total Medical </content>0.3 Center MG/DL<content styleCode="Italic s"> (0.2-1.3 MG/DL)</content> Albumin 3.5-5.0 <content [facility] [Mass/volume] in styleCode="Bold"> Dereje hs Serum or Plasma Albumin Medical </content>4.3 Center G/DL<content styleCode="Italic s"> (3.5-5.0 G/DL)</content> ID Date Data Source [id number] 06/30/2019 07:15:00 AM EST [facility] Care [id number] Corporation Name Value Range Interpretation Description Data Sup porting Code Source(s) Document(s ) Leukocytes 5.9 k/mm3 4.8-10 <td> 06/30/2019 [place] [#/volume] in .8 07:15</td><td> [facility] Blood by k/mm3 WBC </td><td> Health Care Automated count Corporation 5.9
(4.8-10.8) k/mm3 </td> Hemoglobin 8.0 g/dL 14.0-1 <td> 06/30/2019 [place] [Mass/volume] 8.0 07:15</td><td> [place] in Blood g/dL [facility] </td><td><MineWhat raph styleCode="Bold "> 8.0 L </paragraph>
(14.0-18.0) g/dL </td> Erythrocytes 2.64 m/mm3 4.70-6 <td> 06/30/2019 [facility] r [#/volume] in .10 07:15</td><td> [facility] Blood m/mm3 RBC [facility] </td><td><MineWhat raph styleCode="Bold "> 2.64 L </paragraph>
(4.70-6.10) m/mm3 </td> Hematocrit 23.3 % 40.8-4 <td> 06/30/2019 [place] [Volume 6.9 % 07:15</td><td> [facility] Fraction] of HCT [facility] Blood by </td><td><MineWhat Automated count raph styleCode="Bold "> 23.3 L </paragraph>
(40.8-46.9) % </td> Erythrocyte 88.3 fL 80.0-9 <td> 06/30/2019 [place] mean 4.0 fL 07:15</td><td> [facility] corpuscular MCV </td><td> Health Care volume [[employer] volume] by 88.3 Automated count
(80.0-94.0) fL </td> Erythrocyte 30.3 pg 27.0-3 <td> 06/30/2019 [place] mean 1.5 pg 07:15</td><td> County corpuscular MCH </td><td> Health Care hemoglobin Corporation [Entitic mass] 30.3 by Automated count
(27.0-31.5) pg </td> Erythrocyte 12.9 % 11.5-1 <td> 06/30/2019 [place] distribution 4.5 % 07:15</td><td> County width [Entitic RDW </td><td> Health Car e volume] by Corporation Automated count 12.9
(11.5-14.5) % </td> Platelet mean 9.0 fL 9.8-12 <td> 06/30/2019 [facility] r volume [Entitic .8 fL 07:15</td><td> County volume] in MPV Health [facility] Blood by </td><td><MineWhat Automated count raph styleCode="Bold "> 9.0 L </paragraph>
(9.8-12.8) fL </td> Erythrocyte 34.3 % 32.0-3 <td> 06/30/2019 [place] mean 6.0 % 07:15</td><td> [facility] corpuscular MCHC </td><td> Health Care hemoglobin Corporation concentration 34.3 [Mass/volume] in Blood from
Fetus by (32.0-36.0) % Automated count </td> Platelets 456 k/mm3 160-41 <td> 06/30/2019 [place] [#/volume] in 0 07:15</td><td> [facility] Blood by k/mm3 Platelet Count Health Care Automated count </td><td><[employer] ion raph styleCode="Bold "> 456 H </paragraph>
(160-410) k/mm3 </td> Monocytes/Leuko 13.1 % 0.0-11 <td> 06/30/2019 [facility] cytes [Pure .0 % 07:15</td><td> County number Monocytes. Health Care fraction] in </td><td><edison [facility] Blood by raph Automated count styleCode="Bold "> 13.1 H </paragraph>
(0.0-11.0) % </td> Basophils+Eosin 0.0 % 0.0-5. <td> 06/30/2019 [facility] ophils+Monocyte 0 % 07:15</td><td> County s [#/volume] in Eosinophils [facility] Blood by </td><td> [employer] Automated count 0.0
(0.0-5.0) % </td> Lymphocytes 21.0 % 16.0-5 <td> 06/30/2019 [place] [#/volume] in 0.0 % 07:15</td><td> [facility] Blood by Lymphocytes [facility] Automated count </td><td> [employer] 21.0
(16.0-50.0) % </td> Basophils 0.2 % 0.0-2. <td> 06/30/2019 [place] [#/volume] in 0 % 07:15</td><td> [facility] Blood by Basophils [facility] Automated count </td><td> [employer] 0.2
(0.0-2.0) % </td> Immature 0.3 % 0.0-0. <td> 06/30/2019 [place] granulocytes/10 5 % 07:15</td><td> County 0 leukocytes in IG% </td><td> [facility] Blood by [employer] Automated count 0.3
(0.0-0.5) %
The IG fraction represents metamyelocytes, myelocytes and/or
promyelocytes and is only reported as part of the automated
differential when found at a percentage of less than 6.
If higher than 6%, a manual differential will be performed.

(0.0-0.5) % </td> Sodium 136 mEq/L 135-14 <td> 06/30/2019 [place] [Moles/volume] 5 07:15</td><td> [facility] in Serum or mEq/L Sodium-Serum Health Care Plasma </td><td> [employer] 136
(135-145) mEq/L </td> Potassium 4.0 mEq/L 3.5-5. <td> 06/30/2019 [place] [Moles/volume] 1 07:15</td><td> County in Serum or mEq/L Potassium-Serum Health Care Plasma </td><td> [employer] 4.0
(3.5-5.1) mEq/L </td> Glucose 88 mg/dL 70-105 <td> 06/30/2019 [place] [Mass/volume] mg/dL 07:15</td><td> County in Blood Glucose-Serum Health Care </td><td> [employer] 88
(70-105) mg/dL </td> Neutrophils [#] 65.4 % 34.0-7 <td> 06/30/[address] [facility] [address] in Body fluid 6.0 % 07:15</td><td> County by Manual count Neutrophils Health Care </td><td> [employer] 65.4
(34.0-76.0) % </td> Chloride 103 mEq/L 98-107 <td> 06/30/2019 [place] [Moles/volume] mEq/L 07:15</td><td> County in Serum or Chloride Health Care Plasma </td><td> [employer] 103
(98-107) mEq/L
Note Significant Change in Values

(98-107) mEq/L </td> Urea nitrogen 4 mg/dL 6-22 <td> 06/30/2019 [facility] r [Mass/volume] mg/dL 07:15</td><td> County in Blood BUN [facility] </td><td><edison [employer] raph styleCode="Bold "> 4 L </paragraph>
(6-22) mg/dL
Note Significant Change in Values

(6-22) mg/dL </td> Creatinine 0.79 mg/dL 0.72-1 <td> 06/30/2019 [place] [Moles/volume] .25 07:15</td><td> County in Serum or mg/dL Creatinine. Health Care Plasma </td><td> [employer] 0.79
(0.72-1.25) mg/dL </td> Carbon dioxide, 25 mEq/L 22-30 <td> 06/30/2019 [facility] total mEq/L 07:15</td><td> County [Moles/volume] CO2 </td><td> Health Car e in Serum or Corporation Plasma 25
(22-30) mEq/L </td> Aspartate 34 U/L 4-35 <td> 06/30/2019 [place] aminotransferas U/L 07:15</td><td> County e [Enzymatic AST (SGOT) Health Care activity/volume </td><td> [employer] ] in Serum or Plasma 34
(4-35) U/L </td> Bilirubin.total 0.4 mg/dL 0.2-1. <td> 06/30/2019 [facility] [Mass/volume] 3 07:15</td><td> [facility] in Blood mg/dL Bilirubin - Health [employer] </td><td> 0.4
(0.2-1.3) mg/dL </td> Proteins - 6.4 g/dL 6.4-8. <td> 06/30/2019 [place] Total 3 g/dL 07:15</td><td> [facility] Proteins - [facility] [employer] </td><td> 6.4
(6.4-8.3) g/dL </td> Alanine 25 U/L 6-55 <td> 06/30/2019 [place] aminotransferas U/L 07:15</td><td> County e [Enzymatic ALT (SGPT) Health Care activity/volume </td><td> [employer] ] in Serum or Plasma 25
(6-55) U/L </td> Albumin 3.1 g/dL 3.4-4. <td> 06/30/2019 [place] [Mass/volume] 8 g/dL 07:15</td><td> County in Serum or Albumin Health Care Plasma </td><td><edison Corporation raph styleCode="Bold "> 3.1 L </paragraph>
(3.4-4.8) g/dL </td> Hemolysis index No <td> 06/30/2019 [facility] of Serum or Hemolysis 07:15</td><td> [facility] Plasma Hemolysis Index Health Care </td><td> [employer] No Hemolysis
</td> Lipemic index No Lipemia <td> 06/30/2019 [facility] er of Serum or 07:15</td><td> [facility] Plasma Lipemia Index Health Care </td><td> [employer] No Lipemia
</td> Globulin 3.3 gm/dL 2.9-4. <td> 06/30/2019 [place] [Mass/volume] 0 07:15</td><td> [facility] in Serum gm/dL Globulin [facility] </td><td> [employer] 3.3
(2.9-4.0) gm/dL </td> Anion gap in 8 mEq/L 7-13 <td> 06/30/2019 [place] Serum or Plasma mEq/L 07:15</td><td> [facility] Anion Gap Health Care </td><td> [employer] 8
(7-13) mEq/L </td> Calcium 9.5 mg/dL 8.6-10 <td> 06/30/2019 [place] [Mass/volume] .2 07:15</td><td> [facility] in Blood mg/dL Calcium Health Care </td><td> [employer] 9.5
(8.6-10.2) mg/dL </td> Prothrombin 11.1 secs 9.8-12 <td> 06/30/2019 [place] time (PT) .0 07:15</td><td> [facility] secs Prothrombin Health Care Time. [employer] </td><td> 11.1
(9.8-12.0) secs </td> aPTT panel - 26.1 secs 25.0-3 <td> 06/30/2019 [place] Platelet poor 2.0 07:15</td><td> [facility] plasma secs Partial [facility] Care Thromboplastin [employer] Time </td><td> 26.1
(25.0-32.0) secs </td> Icteric index Not <td> 06/30/2019 [facility] r of Serum or Icteric 07:15</td><td> [facility] Plasma Icteric Index Health Care </td><td> Corporation Not Icteric
</td> Phosphate 2.8 mg/dL 2.3-4. <td> 06/30/2019 [place] [Mass/volume] 7 07:15</td><td> County in Serum or mg/dL Inorganic Health Care Plasma [employer] </td><td> 2.8
(2.3-4.7) mg/dL </td> Fibrinogen 509 mg/dL 180-40 <td> 06/30/2019 [place] [Mass/volume] 0 07:15</td><td> County in Platelet mg/dL Fibrinogen Health Care poor plasma by Level [employer] Coagulation </td><td><edison assay raph styleCode="Bold "> 509 H </paragraph>
(180-400) mg/dL
Result confirmed. Test repeated.

(180-400) mg/dL </td> Uric Acid 2.0 mg/dL 3.5-7. <td> 06/30/2019 [place] 2 07:15</td><td> County mg/dL Uric Acid Health Care </td><td><edison Corporation raph styleCode="Bold "> 2.0 L </paragraph>
(3.5-7.2) mg/dL
Note Significant Change in Values

(3.5-7.2) mg/dL </td> Magnesium 1.6 mg/dL 1.6-2. <td> 06/30/2019 [place] [Mass/volume] 6 07:15</td><td> County in Serum or mg/dL Magnesium Level Health Care Plasma </td><td> Corporation 1.6
(1.6-2.6) mg/dL </td> Source WB EDTA <td> 06/26/2019 [place] 09:50</td><td> [facility] Source Health Care </td><td> Corporation WB EDTA
</td> Glucose 117 mg/dL 70-105 <td> 06/30/2019 [place] [Mass/volume] mg/dL 12:08</td><td> County in Capillary Glucose - Health Care blood by [employer] Glucometer </td><td><edison raph styleCode="Bold "> 117 H </paragraph>
(70-105) mg/dL </td> ID Date Data Source [id number] 06/28/2019 10:41:00 AM [facility] [id number] Corporation Name Value Range Interpretation Description Data Source(s ) Supporting Code Document(s ) ABO-Rh Type A NEG <td> [place] 06/28/2019 [facility] 10:41</td><td> Care ABO-Rh Type Corporation </td><td> A NEG
</td> Antibody NEG <td> [place] Screen 06/28/2019 [facility] 10:41</td><td> Care Antibody Corporation Screen </td><td> NEG
</td> Specimen 07/01/20 <td> [place] expiration 19 23:59 06/28/2019 [facility] date of Blood 10:41</td><td> Care Specimen Corporation Expiration Date </td><td> 07/01/2019 23:59
</td> ID Date Data Source [id number] 06/25/2019 01:45:00 PM EST [facility] [id number] Corporation Name Value Range Interpretation Description Data Sup porting Code Source(s) Document(s ) Chest (PACSIMAGE <td> [place] Portable 06/25/2019 [facility] ) Final 13:45</td><td> Health Care Result Chest Portable Corporation Name: ALDAIR </td><td><YOLIE Castle styleCode="Karla Sex: M : lics">(PACSIMA 1970 GE Location: M Admitting )</paragraph>< Physician: br/>
EMERGENCY Final Result SERVICE Requesting

Physician: Name: YOLIE SAWYER Exam: CHEST PORTABLE
MRN: 06/25/2019 [id number] Sex: M 14:17 HISTORY: Sepsis
: cortical 1970 TECHNIQUE: Location: M Portable chest
radiograph Admitting COMPARISON: Physician: Chest EMERGENCY radiograph SERVICE 06/06/2019
FINDINGS: Requesting Hardware Physician: The lungs are NONA HAWTHORNE clear. There are no pleural

effusions. Exam: CHEST There is no PORTABLE pneumothorax. 06/25/2019 The cardiac 14:17 silhouette is unchanged.

<br/ IMPRESSION: > HISTORY: No focal Sepsis consolidation cortical seen. Resident

Radiologist: TECHNIQUE: Lino Lares MD Portable chest Resident radiograph Radiologist Attending

Radiologist: COMPARISON: Bal Moncada MD Chest Finalizing radiograph Radiologist: 06/06/2019 Bal Moncada MD Transcribed

Date: FINDINGS: 06/25/2019
14:48 Hardware Finalized Date: 06/25/2019

15:05 The lungs are clear. There are no pleural effusions. There is
no pneumothorax. The cardiac silhouette is unchanged.

IMPRESSION:
No focal consolidation seen.

<br/ >
Resident Radiologist: Lino Lares MD Resident Radiologist
Attending Radiologist: Bal Moncada MD
Finalizing Radiologist: Bal Moncada MD
Transcribed Date: 06/25/2019 14:48
Finalized Date: 06/25/2019 15:05

</td > ID Date Data Source [id number] 06/20/2019 05:45:00 AM [facility] [id number] Corporation Name Value Range Interpretation Description Data Sup porting Code Source(s) Document(s ) Erythrocytes 2.85 m/mm3 4.70-6 <td> 06/20/2019 [facility] [#/volume] in .10 05:45</td><td> [facility] Blood m/mm3 RBC Health Care </td><td><MineWhat raph styleCode="Bold "> 2.85 L </paragraph>
(4.70-6.10) m/mm3 </td> Leukocytes 2.7 k/mm3 4.8-10 <td> 06/20/2019 [place] [#/volume] in .8 05:45</td><td> [facility] Blood by k/mm3 WBC [facility] Automated </td><td><MineWhat count raph styleCode="Bold "> 2.7 L </paragraph>
(4.8-10.8) k/mm3 </td> Hemoglobin 8.5 g/dL 14.0-1 <td> 06/20/2019 [place] [Mass/volume] 8.0 05:45</td><td> [facility] in Blood g/dL [facility] </td><td><MineWhat raph styleCode="Bold "> 8.5 L </paragraph>
(14.0-18.0) g/dL </td> Hematocrit 24.5 % 40.8-4 <td> 06/20/2019 [place] [Volume 6.9 % 05:45</td><td> [facility] Fraction] of HCT [facility] Blood by </td><td><M[employer]What Automated raph count styleCode="Bold "> 24.5 L </paragraph>
(40.8-46.9) % </td> Erythrocyte 86.0 fL 80.0-9 <td> 06/20/2019 [place] mean 4.0 fL 05:45</td><td> [facility] corpuscular MCV </td><td> [facility] [employer] [Entitic 86.0 volume] by Automated
count (80.0-94.0) fL </td> Platelets 186 k/mm3 160-41 <td> 06/20/2019 [place] [#/volume] in 0 05:45</td><td> [facility] Blood by k/mm3 Platelet Count Health Care Automated </td><td> Corporation count 186
(160-410) k/mm3 </td> Platelet mean 9.8 fL 9.8-12 <td> 06/20/2019 [facility] r volume .8 fL 05:45</td><td> County [Entitic MPV </td><td> Health Care volume] in Corporation Blood by 9.8 Automated count
(9.8-12.8) fL </td> Erythrocyte 29.8 pg 27.0-3 <td> 06/20/2019 [place] mean 1.5 pg 05:45</td><td> [facility] corpuscular MCH </td><td> Health Care hemoglobin [facility] [Entitic mass] 29.8 by Automated count
(27.0-31.5) pg </td> Erythrocyte 34.7 % 32.0-3 <td> 06/20/2019 [place] mean 6.0 % 05:45</td><td> [facility] corpuscular MCHC </td><td> Health Care hemoglobin Corporation concentration 34.7 [Mass/volume] in Blood from
Fetus by (32.0-36.0) % Automated </td> count Erythrocyte 13.2 % 11.5-1 <td> 06/20/2019 [place] distribution 4.5 % 05:45</td><td> [facility] width [Entitic RDW </td><td> Health Car e volume] by [employer] Automated 13.2 count
(11.5-14.5) % </td> Basophils 0.0 % 0.0-2. <td> 06/20/2019 [place] [#/volume] in 0 % 05:45</td><td> [facility] Blood by [facility] Automated </td><td> Corporation count 0.0
(0.0-2.0) % </td> Lymphocytes 21.0 % 16.0-5 <td> 06/20/2019 [place] [#/volume] in 0.0 % 05:45</td><td> [facility] Blood by Lymphocytes Health Care Automated </td><td> Corporation count 21.0
(16.0-50.0) % </td> Basophils+Eosi 2.0 % 0.0-5. <td> 06/20/2019 [facility] er nophils+Monocy 0 % 05:45</td><td> [facility] long [#/volume] Eosinophils Health Care in Blood by </td><td> Corporation Automated count 2.0
(0.0-5.0) % </td> Monocytes/Leuk 15.0 % 0.0-11 <td> 06/20/2019 [facility] er ocytes [Pure .0 % 05:45</td><td> [facility] number Monocytes. Health Care fraction] in </td><td><MineWhat Blood by raph Automated styleCode="Bold count "> 15.0 H </paragraph>
(0.0-11.0) % </td> Myelocytes 1.0 % % <td> 06/15/2019 [place] [#/volume] in 06:00</td><td> [facility] Blood by Myelocyte Health Care Manual count </td><td><MineWhat raph styleCode="Bold "> 1.0 * AB </paragraph>
% </td> Metamyelocytes 1.0 % % <td> 06/20/2019 [facility] er [#/volume] in 05:45</td><td> [facility] Blood by Metamyelocytes Health Care Manual count </td><td><MineWhat raph styleCode="Bold "> 1.0 * AB </paragraph>
% </td> Neutrophils 60.0 % 34.0-7 <td> 06/20/2019 [place] [#] in Body 6.0 % 05:45</td><td> [facility] fluid by Neutrophils Health Care Manual count </td><td> [employer] 60.0
(34.0-76.0) % </td> Immature 1.3 % 0.0-0. <td> 06/08/2019 [place] granulocytes/1 5 % 06:22</td><td> [facility] 00 leukocytes IG% Health Care in Blood by </td><td>[employer] Automated raph count styleCode="Bold "> 1.3 H </paragraph>
(0.0-0.5) %
The IG fraction represents metamyelocytes, myelocytes and/or
promyelocytes and is only reported as part of the automated
differential when found at a percentage of less than 6.
If higher than 6%, a manual differential will be performed.

(0.0-0.5) % </td> Anisocytosis Slight <td> 06/15/2019 [place] [Presence] in 06:00</td><td> [facility] Blood by Light Anisocytosis Health Care microscopy </td><td> [employer] Slight
</td> Ovalocytes Few <td> 06/12/2019 [place] [Presence] in 05:37</td><td> [facility] Blood by Light Ovalocytes Health Care microscopy </td><td> [employer] Few
</td> Polychromasia Slight <td> [facility] [Presence[facility] in 06:00</td><td> [facility] Blood by Light Polychromasia Health Care microscopy </td><td> [employer] Slight
</td> Toxic granules SLIGHT <td> [facility] [Presence] in 06:22</td><td> [facility] Blood by Light Toxic Health Care microscopy [employer] </td><td> SLIGHT
</td> Schistocytes Occasional <td> [facility] [Presence] in 05:37</td><td> [facility] Blood by Light Schistocytes Health Care microscopy </td><td> [employer] Occasional
</td> Glucose 90 mg/dL 70-105 <td> 06/20/2019 [place] [Mass/volume] mg/dL 05:45</td><td> [facility] in Blood Glucose-Serum Health Care </td><td> [employer] 90
(70-105) mg/dL </td> Chloride 101 mEq/L 98-107 <td> 06/20/2019 [place] [Moles/volume] mEq/L 05:45</td><td> County in Serum or Chloride Health Care Plasma </td><td> [employer] 101
(98-107) mEq/L </td> Potassium 5.1 mEq/L 3.5-5. <td> 06/20/2019 [place] [Moles/volume] 1 05:45</td><td> County in Serum or mEq/L Potassium-Serum Health Care Plasma </td><td> [employer] 5.1
(3.5-5.1) mEq/L </td> Dohle body FEW <td> 06/08/2019 [place] [Presence] in 06:22</td><td> County Blood by Light Dohle Bodies Health Care microscopy </td><td> [employer] FEW
</td> Sodium 131 mEq/L 135-14 <td> 06/20/2019 [place] [Moles/volume] 5 05:45</td><td> County in Serum or mEq/L Sodium-Serum Health Care Plasma </td><td><[employer] raph styleCode="Bold "> 131 L </paragraph>
(135-145) mEq/L </td> Creatinine 0.75 mg/dL 0.72-1 <td> 06/20/2019 [place] [Moles/volume] .25 05:45</td><td> County in Serum or mg/dL Creatinine. Health Care Plasma </td><td> [employer] 0.75
(0.72-1.25) mg/dL </td> Urea nitrogen 17 mg/dL 6-22 <td> 06/20/2019 [facility] r [Mass/volume] mg/dL 05:45</td><td> County in Blood BUN </td><td> [employer] 17
(6-22) mg/dL </td> Aspartate 18 U/L 4-35 <td> 06/20/2019 [place] aminotransfera U/L 05:45</td><td> County se [Enzymatic AST (SGOT) Health Care activity/volum </td><td> Corporation e] in Serum or Plasma 18
(4-35) U/L </td> Carbon 23 mEq/L 22-30 <td> 06/20/2019 [place] dioxide, total mEq/L 05:45</td><td> County [Moles/volume] CO2 </td><td> Health Car e in Serum or Corporation Plasma 23
(22-30) mEq/L </td> Alanine 14 U/L 6-55 <td> 06/20/2019 [place] aminotransfera U/L 05:45</td><td> County se [Enzymatic ALT (SGPT) Health Care activity/volum </td><td> Corporation e] in Serum or Plasma 14
(6-55) U/L </td> Proteins - 6.4 g/dL 6.4-8. <td> 06/20/2019 [place] Total 3 g/dL 05:45</td><td> [facility] Proteins - Health Care Total [employer] </td><td> 6.4
(6.4-8.3) g/dL </td> Bilirubin.tota 0.7 mg/dL 0.2-1. <td> 06/20/2019 [facility] er l 3 05:45</td><td> [facility] [Mass/volume] mg/dL Bilirubin - Health Care in Blood Total [employer] </td><td> 0.7
(0.2-1.3) mg/dL </td> Albumin 3.1 g/dL 3.4-4. <td> 06/20/2019 [place] [Mass/volume] 8 g/dL 05:45</td><td> County in Serum or Albumin Health Care Plasma </td><td><edison [facility] raph styleCode="Bold "> 3.1 L </paragraph>
(3.4-4.8) g/dL </td> Calcium 9.1 mg/dL 8.6-10 <td> 06/20/2019 [place] [Mass/volume] .2 05:45</td><td> [facility] in Blood mg/dL Calcium Health Care </td><td> [facility] 9.1
(8.6-10.2) mg/dL </td> Hemolysis No <td> 06/20/2019 [place] index of Serum Hemolysis 05:45</td><td> County or Plasma Hemolysis Index Health Care </td><td> [facility] No Hemolysis
</td> Globulin 3.3 gm/dL 2.9-4. <td> 06/20/2019 [place] [Mass/volume] 0 05:45</td><td> [facility] in Serum gm/dL Globulin Health Care </td><td> [employer] 3.3
(2.9-4.0) gm/dL </td> Anion gap in 7 mEq/L 7-13 <td> 06/20/2019 [place] Serum or mEq/L 05:45</td><td> [facility] Plasma Anion Gap Health Care </td><td> [facility] 7
(7-13) mEq/L </td> Lipemic index No Lipemia <td> 06/20/2019 [facility] er of Serum or 05:45</td><td> [facility] Plasma Lipemia Index Health [facility] </td><td> [facility] No Lipemia
</td> aPTT panel - 29.4 secs 25.0-3 <td> 06/20/2019 [place] Platelet poor 2.0 05:45</td><td> [facility] plasma secs Partial [facility] Thromboplastin [facility] Time </td><td> 29.4
(25.0-32.0) secs </td> Icteric index Non Icteric <td> 06/20/2019 [facility] of Serum or 05:45</td><td> [facility] Plasma Icteric Index Health Care </td><td> [facility] Non Icteric
</td> Prothrombin 11.2 secs 9.8-12 <td> 06/20/2019 [place] time (PT) .0 05:45</td><td> [facility] secs Prothrombin Health Care Time. [facility] </td><td> 11.2
(9.8-12.0) secs </td> Phosphate 3.5 mg/dL 2.3-4. <td> 06/20/2019 [place] [Mass/volume] 7 05:45</td><td> [place] in Serum or mg/dL Inorganic Health Care Plasma [employer] </td><td> 3.5
(2.3-4.7) mg/dL </td> Cholesterol 199 mg/dL 125-24 <td> 06/12/2019 [place] [Moles/volume] 0 10:50</td><td> County in Serum or mg/dL Cholesterol Health Care Plasma </td><td> Corporation 199
(125-240) mg/dL </td> Fibrinogen 602 mg/dL 180-40 <td> 06/20/2019 [place] [Mass/volume] 0 05:45</td><td> County in Platelet mg/dL Fibrinogen Health Care poor plasma by Level [employer] Coagulation </td><td><edison assay raph styleCode="Bold "> 602 H </paragraph>
(180-400) mg/dL
Result confirmed. Test repeated.

(180-400) mg/dL </td> Cholesterol in 10 mg/dL >60 <td> 06/12/2019 [facility] er HDL mg/dL 10:50</td><td> [facility] [Mass/volume] HDL Cholesterol Health Car e in Serum or </td><td> Corporation Plasma 10
(>60) mg/dL </td> Magnesium 1.7 mg/dL 1.6-2. <td> 06/20/2019 [place] [Mass/volume] 6 05:45</td><td> County in Serum or mg/dL Magnesium Level [facility] Plasma </td><td> Corporation 1.7
(1.6-2.6) mg/dL </td> Triglyceride 246 mg/dL 30-200 <td> 06/12/2019 [place] [Mass/volume] mg/dL 10:50</td><td> [place] in Serum or Triglyceride [facility] Plasma </td><td><edison Corporation raph styleCode="Bold "> 246 H </paragraph>
(30-200) mg/dL </td> Cholesterol in 140 mg/dL <150 <td> 06/12/2019 [facility] er LDL mg/dL 10:50</td><td> [facility] [Mass/volume] LDL Cholesterol Health Car e in Serum or </td><td> Corporation Plasma 140
(<150) mg/dL </td> Uric Acid 1.9 mg/dL 3.5-7. <td> 06/20/2019 [place] [id number] 05:45</td><td> County mg/dL Uric Acid [facility] Care </td><td><edison Corporation raph styleCode="Bold "> 1.9 L </paragraph>
(3.5-7.2) mg/dL </td> Glucose 85 mg/dL 70-105 <td> 06/20/2019 [place] [Mass/volume] mg/dL 13:36</td><td> County in Capillary Glucose - Health Care blood by [employer] Glucometer </td><td> 85
(70-105) mg/dL </td> ID Date Data Source [id number] 06/15/2019 06:00:00 AM EST [facility] [id number] Corporation Name Value Range Interpretation Description Data Source(s ) Supporting Code Document(s ) Specimen 06/18/20 <td> [place] expiration 19 23:59 06/15/2019 [facility] date of Blood 06:00</td><td> Care Specimen [facility] Expiration Date </td><td> 06/18/2019 23:59
</td> ABO-Rh Type A NEG <td> [place] 06/15/2019 [facility] 06:00</td><td> Care ABO-Rh Type Corporation </td><td> A NEG
</td> Antibody NEG <td> [place] Screen 06/15/2019 [facility] 06:00</td><td> Care Antibody Corporation Screen </td><td> NEG
</td> ID Date Data Source [id number] 06/06/2019 07:50:00 AM EST [facility] [id number] Corporation Name Value Range Interpretation Description Data Sup porting Code Source(s) Document(s ) Chest (PACSIMAGE <td> 06/06/2019 [place] Portable 07:50</td><td> [facility] ) Chest [facility] Final Result </td><td><paragrap Corporat ion Name: bianca BECKER, styleCode="Nasra URBANO ">(PACSIMAGE Sex: M )</paragraph>
:
Final 1970 Result Location: M

Admitting Name: ALDAIR BECKER, Physician: YOLIE ALCARAZ
MRN: KACEY [id number] Sex: M Requesting
Physician: : 1970 ELOY KOROMA Location: M Exam:
CHEST Admitting PORTABLE Physician: 06/06/2019 KIERAN 09:15 KACEY CLINICAL
STATEMENT: Requesting Mucositis. Physician: ELOY Fever. GA TECHNIQUE:

Portable Exam: CHEST chest PORTABLE radiograph 06/06/2019 09:15 COMPARISON:

Chest CLINICAL radiograph STATEMENT: performed on Mucositis. Fever. 04/28/2018 FINDINGS:

There is no TECHNIQUE: focal Portable chest consolidatio radiograph n,

pneumothorax COMPARISON: Chest or pleural radiograph effusions. performed on The 04/28/2018 cardiomedias

tinal FINDINGS: silhouette
There is within is no focal normal consolidation, limits for pneumothorax or portable pleural effusions. supine
technique. The cardiomediastinal IMPRESSION: silhouette is Clear within normal lungs. limits for
Resident portable supine Radiologist: technique. Attending

Radiologist: IMPRESSION: Irina
Ayden FLORES Clear lungs. Finalizing Radiologist:

<koko Arevalo />
Ayden FLORES Resident Transcribed Radiologist: Date:
06/06/2019 Attending 11:03 Radiologist: Finalized Irina Hensley Date: 06/06/2019
11:05 Finalizing Radiologist: Irina Hensley MD
Transcribed Date: 06/06/2019 11:03
Finalized Date: 06/06/2019 11:05

</td> Pulmonary (PACSIMAGE <td> 06/05/[address] [facility] [address] 20:42</td><td> [facility] ) Chest Without Health Care Final Result Contrast-CT Corporation Name: </td><td><paragrap ALDAIR MALAVENikunj bianca YOLIE styleCode="Italics ">(PACSIMAGE Sex: M : )</paragraph>
1970
Final Location: M Result Admitting

Physician: Name: KIERAN ARANDA
MRN: Requesting [id number] Sex: M Physician:
ELOY KOROMA : 1970 Exam: Location: CT THORAX C-
06/05/2019 Admitting 20:52 Physician: SULTANA ALCARAZ STATEMENT: KACEY Mucositis.
Thrush. Requesting Fever Physician: ELOY COMPARISON: GA None.

TECHNIQUE: Exam: CT THORAX C- CT of the 06/05/2019 20:52 chest without

contrast CLINICAL Up-to-date STATEMENT: CT equipment Mucositis. Thrush. using Fever Automatic

Exposure COMPARISON: None. Control, dose

modulation, TECHNIQUE: CT of and the chest without iterative contrast reconstructi
on dose Up-to-date CT reduction equipment using software Automatic Exposure was Control, dose employed.
The total modulation, and study DLP is iterative approximatel reconstruction y 142 dose reduction mGy-cm. software FINDINGS:
was LUNGS: employed. Dependent
The groundglass total study DLP is opacity in approximately 142 the right mGy-cm. costophrenic

angle at FINDINGS: least in

part may be LUNGS: Dependent related to groundglass dependent opacity in the atelectasis right costophrenic adjacent to
a slightly angle at least elevated in part may be right related to hemidiaphrag dependent m. PLEURA: atelectasis Normal
MEDIASTINUM/ adjacent to a LYMPH NODES: slightly elevated Normal. No right adenopathy. hemidiaphragm. HEART:
Normal PLEURA: Normal VESSELS:
Mild MEDIASTINUM/LYMPH atherosclero NODES: Normal. No tic adenopathy. calcificatio
ns of the HEART: Normal thoracic
aorta VESSELS: Mild BONES AND atherosclerotic SOFT calcifications of TISSUES: the thoracic Normal
UPPER aorta ABDOMEN:
BONES Normal AND SOFT TISSUES: IMPRESSION: Normal
UPPER Unremarkable ABDOMEN: Normal chest CT

IMPRESSION: Resident

Radiologist: Unremarkable Attending chest CT Radiologist:

<alina Hamilton r/> Resident Ashley Radiologist:
Finalizing Attending Radiologist: Radiologist: Joy Ramirez
Finalizing Transcribed Radiologist: Joy Date: Ashley FLORES 06/06/2019
10:16 Transcribed Date: Finalized 06/06/2019 10:16 Date:
06/06/2019 Finalized Date: 10:21 06/06/2019 10:21

</td> PICC Line (PACSIMAGE <td> 06/12/2019 [place] Insertion 10:17</td><td> County >8yrs Old ) PICC Line Health Care Final Result Insertion >8yrs Corporation Name: Mir BECKER, </td><td><paratamera YOLIE valenzuela styleCode="Italics Sex: M ">(PACSIMAGE : 1970 )</paragraph>
Location: M
Final Admitting Result Physician:

KIERAN Name: EDILMA ARANDAEGRINO YOLIE Requesting
MRN: Physician: [id number] Sex: M ELOY KOROMA
Exam: : 1970 PICC Location: M INSERTION
>5YRS Admitting 06/12/2019 Physician: 12:38 KIERAN Images KACEY acquired,
not reported Requesting on this Physician: ELOY accession AHMED number.

Resident Exam: PICC Radiologist: INSERTION >5YRS Attending 06/12/2019 12:38 Radiologist: Finalizing

Radiologist: Images acquired, not reported on Transcribed this accession Date: number. Finalized

Date: Resident 06/12/2019 Radiologist: 12:38
Attending Radiologist:
Finalizing Radiologist:
Transcribed Date:
Finalized Date: 06/12/2019 12:38

</td> Neck Soft (PACSIMAGE <td> 06/05/2019 [place] Tissue 20:37</td><td> County W/Out ) Neck Soft Tissue Health Care Cont-CT Final Result W/Out Cont-CT Corporation Name: </td><td><paratamera ALDAIR MALAVENikunj bianca YOLIE styleCode="Italics ">(PACSIMAGE Sex: M : )</paragraph>
1970
Final Location: M Result Admitting

Physician: Name: ALDAIR ROSITAKIERAN Calvin YOLIE ERAZO
MRN: Requesting [id number] Sex: M Physician:
ELOY KOROMA : 1970 Exam: Location: M CT NECK SOFT
TISSUE C- Admitting 06/05/2019 Physician: 20:41 KIERAN CLINICAL KACEY STATEMENT:
MUCOCITIS-TH Requesting TORRES---FEVER Physician: ELOY . As per the [facility] [place] electronic

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

oropharynx CLINICAL STATEMENT: TECHNIQUE: MUCOCITIS-THRUSH-- CT of the -FEVER. As per the neck soft electronic tissued with
axial image medical record, acquisitionw history of ithout malignant neoplasm intravenous of oropharynx contrast.

Coronal and TECHNIQUE: CT of sagittal the neck soft reconstructi tissued with axial ons were image reviewed. acquisitionwithout Up-to-date
CT equipment intravenous using contrast. Coronal Automatic and sagittal Exposure reconstructions Control, were dose
modulation, reviewed. and Up-to-date CT iterative equipment using reconstructi Automatic Exposure on dose Control, reduction
dose software was modulation, and employed. iterative The total reconstruction study DLP is dose reduction approximatel
y 162 software was mGy-cm. employed. The PRIOR: None. total study DLP is Correlation approximately 162 made with
prior PET-CT mGy-cm. examination

dated PRIOR: None. 03/23/2019. Correlation made with prior PET-CT FINDINGS: examination dated Please note
evaluation 03/23/2019. for residual

and/or FINDINGS: recurrent
neoplasm Please note as well as evaluation for abscesses is residual and/or limited on recurrent neoplasm current
examination as well as secondary abscesses is to lack of limited on current intravenous examination contrast. secondary The current
to examination lack of is intravenous essentially contrast. The nondiagnost current ic to examination is evaluate for essentially residual
and/or nondiagnostic to recurrent evaluate for disease. A residual and/or contrast-enh recurrent disease. anced CT or
PET-CT is A suggested as contrast-enhanced clinically CT or PET-CT is appropriate. suggested as . The clinically nasopharynx appropriate.. demonstrates

an The nasopharynx unremarkable demonstrates an unenhanced unremarkable appearance. unenhanced There is appearance. possible
asymmetric There is possible soft tissue asymmetric soft fullness in tissue fullness in the region the region of the base
of of the left the base of the tongue and left tongue and left left palatine palatine tonsil which tonsil which
may may represent known represent malignancy. This known is suboptimally malignancy. evaluated This is
on suboptimally current evaluated examination. on current

examination. There is limited There evaluation of the is limited bilateral parotid evaluation and submandibular of the
bilateral glands. parotid and

submandibula There are r glands. nonspecific and There incompletely are evaluated nonspecific bilateral level and
incompletely 1, 2, 3, 4 lymph evaluated nodes. Metastatic bilateral lymphadenopathy level 1, cannot be 2, 3, 4
lymph nodes. excluded. There is Metastatic suggestion of lymphadenopa faint thy cannot calcifications be within excluded.
the There is level 2 1 the left suggestion possibly within of faint lymph nodes and calcificatio may represent ns within
the level 2 sequela of 1 the left posttreatment possibly and/or post within lymph radiation changes. nodes and may

No represent evidence of large sequela of retropharyngeal posttreatmen fluid collections. t and/or post

radiation There is mild changes. mucosal thickening No evidence within the of large bilateral retropharyng maxillary eal fluid
collections. sinuses. The There mastoid air cells is mild are well aerated. mucosal thickening

within the IMPRESSION: bilateral
1. maxillary Limited sinuses. The examination as mastoid air detailed above cells are secondary to lack well of aerated.
IMPRESSION: intravenous 1. Limited contrast. examination Examination is as detailed essentially above nondiagnostic secondary to
to lack of evaluate for intravenous residual/recurrent contrast. disease. A Examination contrast-enhanced is
essentially examination may nondiagnosti be obtained for c to further evaluate for evaluation. residual/rec urrent

disease. A 2. Possible contrast-enh asymmetric soft anced tissue fullness in examination the region of may be
obtained for the base of the further left tongue and evaluation. left palatine 2. tonsil which may Possible
asymmetric represent known soft tissue malignancy. This fullness in is suboptimally the region evaluated on of the
base of the current left tongue examination. and left

palatine 3. Nonspecific tonsil which bilateral cervical may lymph nodes as represent detailed above, known
malignancy. suboptimally This is evaluated on suboptimally current evaluated on examination. These current may be evaluated examination.
3. further with Nonspecific PET-CT imaging. bilateral cervical

<br lymph nodes />
as detailed Resident above, Radiologist: suboptimally
evaluated on Attending current Radiologist: Chinedu Otoole MD These may be
evaluated Finalizing further with Radiologist: Chinedu PET-CT Sydnie FLORES imaging.
Transcribed Date: Resident 06/05/2019 21:30 Radiologist:
Attending Finalized Date: Radiologist: 06/05/2019 21:38 Chinedu Otoole MD

</td> Finalizing Radiologist: Chinedu Otoole MD Transcribed Date: 06/05/2019 21:30 Finalized Date: 06/05/2019 21:38 ID Date Data Source [id number] 06/01/2019 05:28:00 AM EST [facility] [id number] Corporation Name Value Range Interpretation Description Data Sup porting Code Source(s) Document(s ) Leukocytes 2.5 k/mm3 4.8-10 <td> 06/01/2019 [place] [#/volume] in .8 05:28</td><td> [facility] Blood by k/mm3 WBC Health Care Automated count </td><td><edison Corporat ion raph styleCode="Bold "> 2.5 L </paragraph>
(4.8-10.8) k/mm3 </td> Erythrocytes 3.51 m/mm3 4.70-6 <td> 06/01/2019 [facility] [#/volume] in .10 05:28</td><td> [facility] Blood m/mm3 RBC Health Care </td><td><edison Corporation raph styleCode="Bold "> 3.51 L </paragraph>
(4.70-6.10) m/mm3 </td> Hemoglobin 10.8 g/dL 14.0-1 <td> 06/01/2019 [place] [Mass/volume] 8.0 05:28</td><td> County in Blood g/dL HGB Health Care </td><td><MineWhat raph styleCode="Bold "> 10.8 L </paragraph>
(14.0-18.0) g/dL </td> Hematocrit 30.1 % 40.8-4 <td> 06/01/2019 [place] [Volume 6.9 % 05:28</td><td> County Fraction] of HCT Health Care Blood by </td><td><MineWhat Automated count raph styleCode="Bold "> 30.1 L </paragraph>
(40.8-46.9) % </td> Erythrocyte 85.8 fL 80.0-9 <td> 06/01/2019 [place] mean 4.0 fL 05:28</td><td> [facility] corpuscular MCV </td><td> Health Care volume [Ent[employer] Corporation volume] by 85.8 Automated count
(80.0-94.0) fL </td> Erythrocyte 30.8 pg 27.0-3 <td> 06/01/2019 [place] mean 1.5 pg 05:28</td><td> County corpuscular MCH </td><td> Health Care hemoglobin Corporation [Entitic mass] 30.8 by Automated count
(27.0-31.5) pg </td> Erythrocyte 35.9 % 32.0-3 <td> 06/01/2019 [place] mean 6.0 % 05:28</td><td> County corpuscular MCHC </td><td> Health Care hemoglobin Corporation concentration 35.9 [Mass/volume] in Blood from
Fetus by (32.0-36.0) % Automated count </td> Basophils 0.0 % 0.0-2. <td> 06/01/2019 [place] [#/volume] in 0 % 05:28</td><td> [facility] Blood by Basophils Health Care Automated count </td><td> Corporation 0.0
(0.0-2.0) % </td> Monocytes/Leuko 1.0 % 0.0-11 <td> 06/01/2019 [facility] cytes [Pure .0 % 05:28</td><td> County number Monocytes. Health Care fraction] in </td><td> [facility] Blood by Automated count 1.0
(0.0-11.0) % </td> Platelets 160 k/mm3 160-41 <td> 06/01/2019 [place] [#/volume] in 0 05:28</td><td> [facility] Blood by k/mm3 Platelet Count Health Care Automated count </td><td> [employer] 160
(160-410) k/mm3 </td> Erythrocyte 13.2 % 11.5-1 <td> 06/01/2019 [place] distribution 4.5 % 05:28</td><td> [facility] width [Entitic RDW </td><td> Health Car e volume] by [employer] Automated count 13.2
(11.5-14.5) % </td> Basophils+Eosin 0.0 % 0.0-5. <td> 06/01/2019 [facility] ophils+Monocyte 0 % 05:28</td><td> County s [#/volume] in Eosinophils Health Care Blood by </td><td> [employer] Automated count 0.0
(0.0-5.0) % </td> Lymphocytes 12.0 % 16.0-5 <td> 06/01/2019 [place] [#/volume] in 0.0 % 05:28</td><td> [facility] Blood by Lymphocytes Health Care Automated count </td><td><edison Corporat ion raph styleCode="Bold "> 12.0 L </paragraph>
(16.0-50.0) % </td> Platelet mean 10.4 fL 9.8-12 <td> 06/01/2019 [facility] r volume [Entitic .8 fL 05:28</td><td> County volume] in MPV </td><td> Health Care Blood by [employer] Automated count 10.4
(9.8-12.8) fL </td> Myelocytes 2.0 % % <td> 05/31/2019 [place] [#/volume] in 06:13</td><td> [facility] Blood by Manual Myelocyte Health Care count </td><td><MineWhat raph styleCode="Bold "> 2.0 * AB </paragraph>
% </td> Immature 0.0 % 0.0-0. <td> 05/30/2019 [place] granulocytes/10 5 % 07:35</td><td> County 0 leukocytes in IG% </td><td> Health Ca re Blood by [employer] Automated count 0.0
(0.0-0.5) %
The IG fraction represents metamyelocytes, myelocytes and/or
promyelocytes and is only reported as part of the automated
differential when found at a percentage of less than 6.
If higher than 6%, a manual differential will be performed.

(0.0-0.5) % </td> Neutrophils [#] 87.0 % 34.0-7 <td> 06/01/2019 [facility] in Body fluid 6.0 % 05:28</td><td> [facility] by Manual count Neutrophils Health Care </td><td><MineWhat raph styleCode="Bold "> 87.0 H </paragraph>
(34.0-76.0) % </td> Polychromasia Marked <td> 05/31/2019 [facility] r [Presence] in 06:13</td><td> [facility] Blood by Light Polychromasia Health Care microscopy </td><td> [employer] Marked
</td> Metamyelocytes 2.0 % % <td> 05/31/2019 [facility] er [#/volume] in 06:13</td><td> [facility] Blood by Manual Metamyelocytes Health Ca re count </td><td><MineWhat raph styleCode="Bold "> 2.0 * AB </paragraph>
% </td> Anisocytosis Slight <td> 05/31/2019 [place] [Presence] in 06:13</td><td> [facility] Blood by Light Anisocytosis Health Care microscopy </td><td> [employer] Slight
</td> Carbon dioxide, 24 mEq/L 22-30 <td> 06/01/[address] [facility] [address] total mEq/L 05:28</td><td> County [Moles/volume] CO2 </td><td> Health Car e in Serum or Corporation Plasma 24
(22-30) mEq/L </td> Chloride 103 mEq/L 98-107 <td> 06/01/2019 [place] [Moles/volume] mEq/L 05:28</td><td> County in Serum or Chloride Health Care Plasma </td><td> [employer] 103
(98-107) mEq/L </td> Urea nitrogen 9 mg/dL 6-22 <td> [facility]01/2019 [facility] [Mass/volume] mg/dL 05:28</td><td> County in Blood BUN </td><td> Health Care Corporation 9
(6-22) mg/dL </td> Sodium 134 mEq/L 135-14 <td> 06/01/2019 [place] [Moles/volume] 5 05:28</td><td> County in Serum or mEq/L Sodium-Serum Health Care Plasma </td><td><MineWhat raph styleCode="Bold "> 134 L </paragraph>
(135-145) mEq/L </td> Glucose 95 mg/dL 70-105 <td> 06/01/2019 [place] [Mass/volume] mg/dL 05:28</td><td> County in Blood Glucose-Serum Health Care </td><td> [employer] 95
(70-105) mg/dL </td> Ovalocytes Few <td> 05/31/2019 [place] [Presence] in 06:13</td><td> [facility] Blood by Light Ovalocytes Health Care microscopy </td><td> Corporation Few
</td> Potassium 3.9 mEq/L 3.5-5. <td> 06/01/2019 [place] [Moles/volume] 1 05:28</td><td> County in Serum or mEq/L Potassium-Serum Health Care Plasma </td><td> [employer] 3.9
(3.5-5.1) mEq/L </td> Proteins - 6.0 g/dL 6.4-8. <td> 06/01/2019 [place] Total 3 g/dL 05:28</td><td> [facility] Proteins - Health Care Total Corporation </td><td><[employer] raph styleCode="Bold "> 6.0 L </paragraph>
(6.4-8.3) g/dL </td> Albumin 3.3 g/dL 3.4-4. <td> 06/01/2019 [place] [Mass/volume] 8 g/dL 05:28</td><td> County in Serum or Albumin Health Care Plasma </td><td><edison [employer] raph styleCode="Bold "> 3.3 L </paragraph>
(3.4-4.8) g/dL </td> Aspartate 26 U/L 4-35 <td> 06/01/2019 [place] aminotransferas U/L 05:28</td><td> County e [Enzymatic AST (SGOT) Health Care activity/volume </td><td> [employer] ] in Serum or Plasma 26
(4-35) U/L </td> Creatinine 0.77 mg/dL 0.72-1 <td> 06/01/2019 [place] [Moles/volume] .25 05:28</td><td> County in Serum or mg/dL Creatinine. Health Care Plasma </td><td> [employer] 0.77
(0.72-1.25) mg/dL </td> Alanine 28 U/L 6-55 <td> 06/01/2019 [place] aminotransferas U/L 05:28</td><td> County e [Enzymatic ALT (SGPT) Health Care activity/volume </td><td> [employer] ] in Serum or Plasma 28
(6-55) U/L </td> Bilirubin.total 0.2 mg/dL 0.2-1. <td> 06/01/2019 [facility] [Mass/volume] 3 05:28</td><td> County in Blood mg/dL Bilirubin - Health Care Total Corporation </td><td> 0.2
(0.2-1.3) mg/dL </td> Lipemic index No Lipemia <td> 06/01/2019 [facility] er of Serum or 05:28</td><td> [facility] Plasma Lipemia Index Health Care </td><td> [employer] No Lipemia
</td> Anion gap in 7 mEq/L 7-13 <td> 06/01/2019 [place] Serum or Plasma mEq/L 05:28</td><td> [facility] Anion Gap Health Care </td><td> [employer] 7
(7-13) mEq/L </td> Globulin 2.7 gm/dL 2.9-4. <td> 06/01/2019 [place] [Mass/volume] 0 05:28</td><td> County in Serum gm/dL Globulin Health Care </td><td><edison [facility] raph styleCode="Bold "> 2.7 L </paragraph>
(2.9-4.0) gm/dL </td> Hemolysis index No <td> 06/01/2019 [facility] of Serum or Hemolysis 05:28</td><td> [facility] Plasma Hemolysis Index Health Care </td><td> [employer] No Hemolysis
</td> Icteric index Not <td> 06/01/2019 [facility] r of Serum or Icteric 05:28</td><td> [facility] Plasma Icteric Index Health Care </td><td> [employer] Not Icteric
</td> Phosphate 3.6 mg/dL 2.3-4. <td> 06/01/2019 [place] [Mass/volume] 7 05:28</td><td> County in Serum or mg/dL Inorganic Health Care Plasma Phosphorus [facility] </td><td> 3.6
(2.3-4.7) mg/dL </td> Calcium 8.7 mg/dL 8.6-10 <td> 06/01/2019 [place] [Mass/volume] .2 05:28</td><td> County in Blood mg/dL Calcium Health Care </td><td> [employer] 8.7
(8.6-10.2) mg/dL </td> Uric Acid 5.8 mg/dL 3.5-7. <td> 05/28/2019 [place] 2 13:45</td><td> County mg/dL Uric Acid Health Care </td><td> [employer] 5.8
(3.5-7.2) mg/dL </td> Magnesium 1.5 mg/dL 1.6-2. <td> 06/01/2019 [place] [Mass/volume] 6 05:28</td><td> County in Serum or mg/dL Magnesium Level Health Care Plasma </td><td><para Corporation graph styleCode="Bold "> 1.5 L </paragraph>
(1.6-2.6) mg/dL </td> Fibrinogen 497 mg/dL 180-40 <td> 05/28/2019 [place] [Mass/volume] 0 13:45</td><td> County in Platelet mg/dL Fibrinogen Health Care poor plasma by Level [employer] Coagulation </td><td><edison assay raph styleCode="Bold "> 497 H </paragraph>
(180-400) mg/dL </td> aPTT panel - 26.2 secs 25.0-3 <td> 05/28/2019 [place] Platelet poor 2.0 13:45</td><td> [facility] plasma secs Partial [facility] Care Thromboplastin [employer] Time </td><td> 26.2
(25.0-32.0) secs </td> Prothrombin 10.7 secs 9.8-12 <td> 05/28/2019 [place] time (PT) .0 13:45</td><td> County secs Prothrombin Health Care Time. Corporation </td><td> 10.7
(9.8-12.0) secs </td> ID Date Data Source [id number] 05/28/2019 02:45:00 PM EDT [facility] [id number] Corporation Name Value Range Interpretation Description Data Source(s ) Supporting Code Document(s ) ABO-Rh Type A NEG <td> [place] 05/28/2019 [facility] 13:45</td><td> Care ABO-Rh Type Corporation </td><td> A NEG
</td> Antibody NEG <td> [facility] 05/28/2019 [facility] 13:45</td><td> Care Antibody Corporation Screen </td><td> NEG
</td> Specimen 05/31/20 <td> [place] expiration 19 23:59 05/28/2019 Count includes the [facility] of Blood 13:45</td><td> Care Specimen Corporation Expiration Date </td><td> 05/31/2019 23:59
</td> ID Date Data Source [id number] 05/06/2019 03:29:21 PM EDT [facility] [id number] Corporation Name Value Range Interpretation Description Data Source(s ) Supporting Code Document(s ) ABO-Rh Type A NEG <td> [place] 05/05/2019 [facility] 12:48</td><td> Care ABO-Rh Type Corporation </td><td> A NEG
</td> Antibody NEG <td> [place] Screen 05/05/2019 [facility] 12:48</td><td> Care Antibody Corporation Screen </td><td> NEG
</td> Specimen 05/08/20 <td> [place] expiration 19 23:59 05/05/2019 [facility] date of Blood 12:48</td><td> Care Specimen Corporation Expiration Date </td><td> 05/08/2019 23:59
</td> ID Date Data Source [id number] 05/06/2019 03:29:21 PM EDT [facility] [id number] Corporation Name Value Range Interpretation Description Data Sup porting Code Source(s) Document(s ) Leukocytes 7.1 k/mm3 4.8-10 <td> 05/05/2019 [place] [#/volume] in .8 12:25</td><td> [facility] Blood by k/mm3 WBC </td><td> Health Care Automated count Corporation 7.1
(4.8-10.8) k/mm3 </td> Erythrocytes 4.74 m/mm3 4.70-6 <td> 05/05/2019 [facility] [#/volume] in .10 12:25</td><td> [facility] Blood m/mm3 RBC </td><td> Health Care Corporation 4.74
(4.70-6.10) m/mm3 </td> Hemoglobin 14.6 g/dL 14.0-1 <td> 05/05/2019 [place] [Mass/volume] 8.0 12:25</td><td> [facility] in Blood g/dL HGB </td><td> Health Care Corporation 14.6
(14.0-18.0) g/dL </td> Erythrocyte 85.7 fL 80.0-9 <td> 05/05/2019 [place] mean 4.0 fL 12:25</td><td> [facility] corpuscular MCV </td><td> Health Care volume [[employer] volume] by 85.7 Automated count
(80.0-94.0) fL </td> Erythrocyte 30.8 pg 27.0-3 <td> 05/05/2019 [place] mean 1.5 pg 12:25</td><td> [facility] corpuscular MCH </td><td> Health Care hemoglobin Corporation [Entitic mass] 30.8 by Automated count
(27.0-31.5) pg </td> Hematocrit 40.6 % 40.8-4 <td> 05/05/2019 [place] [Volume 6.9 % 12:25</td><td> County Fraction] of HCT Health Care Blood by </td><td><edison [employer] Automated count raph styleCode="Bold "> 40.6 L </paragraph>
(40.8-46.9) % </td> Erythrocyte 36.0 % 32.0-3 <td> 05/05/2019 [place] mean 6.0 % 12:25</td><td> County corpuscular MCHC </td><td> Health Care hemoglobin Corporation concentration 36.0 [Mass/volume] in Blood from
Fetus by (32.0-36.0) % Automated count </td> Erythrocyte 14.3 % 11.5-1 <td> 05/05/2019 [place] distribution 4.5 % 12:25</td><td> County width [Entitic RDW </td><td> Health Car e volume] by [employer] Automated count 14.3
(11.5-14.5) % </td> Platelet mean 9.6 fL 9.8-12 <td> 05/05/2019 [facility] r volume [Entitic .8 fL 12:25</td><td> County volume] in [facility]PV [facility] Blood by </td><td><[employer] Automated count raph styleCode="Bold "> 9.6 L </paragraph>
(9.8-12.8) fL </td> Platelets 235 k/mm3 160-41 <td> 05/05/2019 [place] [#/volume] in 0 12:25</td><td> County Blood by k/mm3 Platelet Count Health Care Automated count </td><td> [employer] 235
(160-410) k/mm3 </td> Lymphocytes 44.6 % 16.0-5 <td> 05/05/2019 [place] [#/volume] in 0.0 % 12:25</td><td> County Blood by Lymphocytes [facility] Care Automated count </td><td> [employer] 44.6
(16.0-50.0) % </td> Monocytes/Leuko 8.6 % 0.0-11 <td> 05/05/2019 [facility] cytes [Pure .0 % 12:25</td><td> County number Monocytes. Health Care fraction] in </td><td> [facility] Blood by Automated count 8.6
(0.0-11.0) % </td> Immature 0.1 % 0.0-0. <td> 05/05/2019 [place] granulocytes/10 5 % 12:25</td><td> [facility] 0 leukocytes in IG% </td><td> [facility] Blood by [employer] Automated count 0.1
(0.0-0.5) %
The IG fraction represents metamyelocytes, myelocytes and/or
promyelocytes and is only reported as part of the automated
differential when found at a percentage of less than 6.
If higher than 6%, a manual differential will be performed.

(0.0-0.5) % </td> Basophils 0.6 % 0.0-2. <td> 05/05/2019 [place] [#/volume] in 0 % 12:25</td><td> [facility] Blood by Basophils [facility] Automated count </td><td> [employer] 0.6
(0.0-2.0) % </td> Basophils+Eosin 0.6 % 0.0-5. <td> 05/05/2019 [facility] ophils+Monocyte 0 % 12:25</td><td> County s [#/volume] in Eosinophils [facility] Blood by </td><td> [employer] Automated count 0.6
(0.0-5.0) % </td> Sodium 137 mEq/L 135-14 <td> 05/05/2019 [place] [Moles/volume] 5 12:25</td><td> County in Serum or mEq/L Sodium-Serum [facility] Care Plasma </td><td> [employer] 137
(135-145) mEq/L </td> Neutrophils [#] 45.5 % 34.0-7 <td> 05/05/2019 [facility] in Body fluid 6.0 % 12:25</td><td> [facility] by Manual count Neutrophils [facility] Care </td><td> [employer] 45.5
(34.0-76.0) % </td> Glucose 93 mg/dL 70-105 <td> 05/05/2019 [place] [Mass/volume] mg/dL 12:25</td><td> County in Blood Glucose-Serum Health Care </td><td> [employer] 93
(70-105) mg/dL </td> Carbon dioxide, 27 mEq/L 22-30 <td> 05/05/2019 [facility] total mEq/L 12:25</td><td> County [Moles/volume] CO2 </td><td> Health Car e in Serum or Corporation Plasma 27
(22-30) mEq/L </td> Chloride 99 mEq/L 98-107 <td> 05/05/2019 [place] [Moles/volume] mEq/L 12:25</td><td> County in Serum or Chloride Health Care Plasma </td><td> [employer] 99
(98-107) mEq/L </td> Potassium 4.3 mEq/L 3.5-5. <td> 05/05/2019 [place] [Moles/volume] 1 12:25</td><td> County in Serum or mEq/L Potassium-Serum Health Care Plasma </td><td> [employer] 4.3
(3.5-5.1) mEq/L </td> Creatinine 0.89 mg/dL 0.72-1 <td> 05/05/2019 [place] [Moles/volume] .25 12:25</td><td> County in Serum or mg/dL Creatinine. Health Care Plasma </td><td> [employer] 0.89
(0.72-1.25) mg/dL </td> Urea nitrogen 11 mg/dL 6-22 <td> 05/05/2019 [facility] r [Mass/volume] mg/dL 12:25</td><td> County in Blood BUN </td><td> Health Care [employer] 11
(6-22) mg/dL </td> Aspartate 40 U/L 4-35 <td> 05/05/2019 [place] aminotransferas U/L 12:25</td><td> County e [Enzymatic AST (SGOT) Health Care activity/volume </td><td><edison Corporat ion ] in Serum or raph Plasma styleCode="Bold "> 40 H </paragraph>
(4-35) U/L </td> Bilirubin.total 0.9 mg/dL 0.2-1. <td> 05/05/2019 [facility] [Mass/volume] 3 12:25</td><td> [facility] in Blood mg/dL Bilirubin - [facility] [employer] </td><td> 0.9
(0.2-1.3) mg/dL </td> Alanine 48 U/L 6-55 <td> 05/05/2019 [place] aminotransferas U/L 12:25</td><td> County e [Enzymatic ALT (SGPT) Health Care activity/volume </td><td> [employer] ] in Serum or Plasma 48
(6-55) U/L </td> Proteins - 7.7 g/dL 6.4-8. <td> 05/05/2019 [place] Total 3 g/dL 12:25</td><td> [facility] Proteins - [employer] </td><td> 7.7
(6.4-8.3) g/dL </td> Albumin 4.5 g/dL 3.4-4. <td> 05/05/2019 [place] [Mass/volume] 8 g/dL 12:25</td><td> [facility] in Serum or Albumin Health Care Plasma </td><td> [employer] 4.5
(3.4-4.8) g/dL </td> Anion gap in 11 mEq/L 7-13 <td> 05/05/2019 [place] Serum or Plasma mEq/L 12:25</td><td> [facility] Anion Gap Health Care </td><td> [employer] 11
(7-13) mEq/L </td> Calcium 10.2 mg/dL 8.6-10 <td> 05/05/2019 [place] [Mass/volume] .2 12:25</td><td> County in Blood mg/dL Calcium Health Care </td><td> [facility] 10.2
(8.6-10.2) mg/dL </td> Hemolysis index No <td> 05/05/2019 [facility] of Serum or Hemolysis 12:25</td><td> County Plasma Hemolysis Index Health Care </td><td> [facility] No Hemolysis
</td> Globulin 3.2 gm/dL 2.9-4. <td> 05/05/2019 [place] [Mass/volume] 0 12:25</td><td> County in Serum gm/dL Globulin Health Care </td><td> [employer] 3.2
(2.9-4.0) gm/dL </td> Phosphate 3.6 mg/dL 2.3-4. <td> 05/05/2019 [place] [Mass/volume] 7 12:25</td><td> [facility] in Serum or mg/dL Inorganic Health Care Plasma Phosphorus [facility] </td><td> 3.6
(2.3-4.7) mg/dL </td> Lipemic index No Lipemia <td> 05/05/2019 [facility] er of Serum or 12:25</td><td> [facility] Plasma Lipemia Index Health [facility] </td><td> [facility] No Lipemia
</td> Icteric index Slightly <td> 05/05/2019 [facility] r of Serum or 12:25</td><td> [facility] Plasma Icteric Index Health Care </td><td> [employer] Slightly
</td> Prothrombin 10.0 secs 9.8-12 <td> 05/05/2019 [place] time (PT) .0 12:25</td><td> [facility] secs Prothrombin Health Care Time. [facility] </td><td> 10.0
(9.8-12.0) secs </td> aPTT panel - 25.3 secs 25.0-3 <td> 05/05/2019 [place] Platelet poor 2.0 12:25</td><td> [facility] plasma secs Partial [facility] Care Thromboplastin [facility] Time </td><td> 25.3
(25.0-32.0) secs </td> Fibrinogen 334 mg/dL 180-40 <td> 05/05/2019 [place] [Mass/volume] 0 12:25</td><td> County in Platelet mg/dL Fibrinogen Health Care poor plasma by Level [employer] Coagulation </td><td> assay 334
(180-400) mg/dL </td> Uric Acid 4.8 mg/dL 3.5-7. <td> 05/05/2019 [place] 2 12:25</td><td> County mg/dL Uric Acid Health Care </td><td> Corporation 4.8
(3.5-7.2) mg/dL </td> Magnesium 1.8 mg/dL 1.6-2. <td> 05/05/2019 [place] [Mass/volume] 6 12:25</td><td> County in Serum or mg/dL Magnesium Level Health Care Plasma </td><td> [employer] 1.8
(1.6-2.6) mg/dL </td> ID Date Data Source [id number] 05/05/2019 11:16:40 AM EDT [facility] [id number] Corporation Name Value Range Interpretation Description Data Source(s ) Supporting Code Document(s ) No Results Normal (applies < [place] information to non-numeric align="left">< [facility] exists for results) content Care this episode. styleCode="Coupon Wallet d"> No Results information exists for this episode.
< /content></th> ID Date Data Source [facility].[id number] 02/24/2019 10:34:00 AM EDT [facility] Name Value Range Interpretation Description Data Sup porting Code Source(s) Document(s ) Creatinine 0.5-1.3 <content [facility] [Mass/volume] styleCode="Farnaz Marcela in Serum or d">Creatinine Medical Plasma </content>0.9 Center MG/DL<content styleCode="Karla lics"> (0.5-1.3 MG/DL)</conten t> UNK 9-20 <content [facility] styleCode="Farnaz Marcela d">BUN Medical </content>14 Center MG/DL<content styleCode="Karla lics"> (9-20 MG/DL)</conten t> ID Date Data Source Liver 10/08/2018 11:37:00 AM EDT [facility] Profile.[id number] Name Value Range Interpretation Description Data Sup porting Code Source(s) Document(s ) Aspartate 17-59 <content [facility] aminotransferase styleCode="Bold"> Dereje hs [Enzymatic Aspartate Medical activity/volume] Aminotransferase Center in Serum or Plasma (AST) </content>20 IU/L<content styleCode="Italic s"> (17-59 IU/L)</content> Alkaline 38-126 <content [facility] phosphatase styleCode="Bold"> Marcela [Enzymatic Alkaline Medical activity/volume] Phosphatase (ALP) Cente r in Serum or Plasma </content>80 IU/L<content styleCode="Italic s"> (38-126 IU/L)</content> Alanine 7-50 <content [facility] aminotransferase styleCode="Bold"> Dereje hs [Enzymatic Alanine Medical activity/volume] Aminotransferase Center in Serum or Plasma (ALT) </content>17 IU/L<content styleCode="Italic s"> (7-50 IU/L)</content> Bilirubin.total 0.2-1.3 <content [facility] [Mass/volume] in styleCode="Bold"> Dereje hs Serum or Plasma Bilirubin Total Medical </content>0.8 Center MG/DL<content styleCode="Italic s"> (0.2-1.3 MG/DL)</content> Albumin 3.5-5.0 <content [facility] [Mass/volume] in styleCode="Bold"> Dereje hs Serum or Plasma Albumin Medical </content>4.4 Center G/DL<content styleCode="Italic s"> (3.5-5.0 G/DL)</content> ID Date Data Source LIPID.[id number] 10/08/2018 11:37:00 AM EDT [facility] Name Value Range Interpretation Description Data Sup porting Code Source(s) Document(s ) Cholesterol -<200 Above high normal <content [facility] [Mass/volume] in styleCode="Farnaz Marcela Serum or Plasma d">Cholesterol Medical </content>247 Center MG/DL H<content styleCode="Karla lics"> (-<200 MG/DL)</conten t> Triglyceride < 150 <content [facility] [Mass/volume] in styleCode="Farnaz Marcela Serum or Plasma d">Triglycerid [facility] </content>81 MG/DL<content styleCode="Karla lics"> (< 150 MG/DL)</conten t> UNK < 100 Above high normal <content Saint styleCode="Farnaz Marcela d">LDL-Cholest [facility] </content>198 MG/DL H<content styleCode="Karla lics"> (< 100 MG/DL)</conten t> UNK > 60 Below low normal <content Saint styleCode="Farnaz Marcela d">HDL- Medical Cholesterol [place] </content>33 MG/DL L<content styleCode="Karla lics"> (> 60 MG/DL)</conten t> ID Date Data Source Hormones.[id number] 10/08/2018 11:37:00 AM EDT [facility] Name Value Range Interpretation Description Data Sup porting Code Source(s) Document(s ) Thyrotropin 0.465-4. <content [facility] [Units/volume] 68 styleCode="Farnaz Shaikhs in Serum or d">Thyroid Medical Plasma by Stimulating Center Detection Hormone limit <= 0.05 </content>1.19 mIU/L MIU/L<content styleCode="Karla lics"> (0.465-4.68 MIU/L)</conten t> ID Date Data Source HematologySpeci.[id number] 10/08/2018 11:37:00 AM EDT [facility] 0-0400 Name Value Range Interpretation Description Data Sup porting Code Source(s) Document(s ) Erythrocyte < 15 Above high normal <content [facility] sedimentation styleCode="Bold" [facility] rate by >Erythrocyte [facility] Sedementation Center method Rate (ESR) </content>17 MM/hr H<content styleCode="Itali cs"> (< 15 MM/hr)</content> ID Date Data Source HematologyRou.[id number] 10/08/2018 11:37:00 AM EDT [facility] 0400 Name Value Range Interpretation Description Data Sup porting Code Source(s) Document(s ) Leukocytes 4.4-11.0 <content [facility] [#/volume] in styleCode="Bold Marcela Blood by ">White Blood Medical Automated count Cell Count Center </content>6.94 KCUMM<content styleCode="Ital ics"> (4.4-11.0 KCUMM)</content > Erythrocytes 4.4-5.9 <content [facility] [#/volume] in styleCode="Bold Marcela Blood by ">Red Blood Medical Automated count Cell Count Center </content>4.87 MCUMM<content styleCode="Ital ics"> (4.4-5.9 MCUMM)</content > Erythrocyte mean 26.0-34. <content [facility] corpuscular 0 styleCode="Bold Marcela hemoglobin ">Mean Medical [Entitic mass] Corposcular Center by Automated Hemoglobin count </content>29.4 PG<content styleCode="Ital ics"> (26.0-34.0 PG)</content> Hematocrit 41.0-53. Below low normal <content [facility] [Volume 0 styleCode="Bold [facility] Fraction] of ">Hematocrit Medical Blood by </content>40.5 Center Automated count % L<content styleCode="Ital ics"> (41.0-53.0 %)</content> Hemoglobin 13.5-17. <content [facility] [Mass/volume] in 5 styleCode="Bold Marcela Blood ">Hemoglobin Medical </content>14.3 Center G/DL<content styleCode="Ital ics"> (13.5-17.5 G/DL)</content> Erythrocyte mean 80.0-100 <content [facility] corpuscular .0 styleCode="Bold [facility] volume [Entitic ">Mean Medical volume] by Corpuscular Center Automated count Volume </content>83.2 FL<content styleCode="Ital ics"> (80.0-100.0 FL)</content> Platelets 130-400 <content [facility] [#/volume] in styleCode="Bold Marcela Blood by ">Platelet Medical Automated count Count Center </content>313 KCUMM<content styleCode="Ital ics"> (130-400 KCUMM)</content > Platelet mean 8.0-11.0 <content Saint volume [Entitic styleCode="Bold Amrcela volume] in Blood ">Mean Platelet Medical by Automated Volume Center count </content>9.9 FL<content styleCode="Ital ics"> (8.0-11.0 FL)</content> Erythrocyte mean 32.0-37. <content [facility] corpuscular 0 styleCode="Bold Marcela hemoglobin ">Mean Corpus. Medical concentration Hgb Center [Mass/volume] by Concentration Automated count (MCHC) </content>35.3 G/DL<content styleCode="Ital ics"> (32.0-37.0 G/DL)</content> Erythrocyte 11.5-14. <content [facility] distribution 5 styleCode="Bold Marcela width [Ratio] by ">Red Cell Medical Automated count Distribution Center Width </content>13.7 %<content styleCode="Ital ics"> (11.5-14.5 %)</content> UNK 0 <content Saint styleCode="Bold Marcela ">Nucleated Red Medical Blood Cell Center </content>0.0 /100<content styleCode="Ital ics"> (0 /100)</content> UNK 0.0 <content Saint styleCode="Bold Marcela ">Nucleated Red Medical Blood Cell Center Count </content>0.00 KCUMM<content styleCode="Ital ics"> (0.0 KCUMM)</content > ID Date Data Source GFR(Creatinine).[id number] 10/08/2018 11:37:00 AM EDT [facility] 0-0400 Name Value Range Interpretation Code Description Data Jazzmine rce(s) Supporting Document(s ) UNK > 60 <content [facility] styleCode="Bold"> Medical Cent er EGFR </content>115 GFR<content styleCode="Italic s"> (> 60 GFR)</content> ID Date Data Source CHMROUTINECCDA.[id number] 10/08/2018 11:37:00 AM EDT [facility] -0400 Name Value Range Interpretation Description Data Sup porting Code Source(s) Document(s ) UNK >= 1.0 <content [facility] styleCode="Bold Medical ">AG Ratio Center </content>1.3 <content styleCode="Ital ics"> (>= 1.0 )</content> Protein 6.3-8.2 <content [facility] [Mass/volum styleCode="Bold Medical e] in Serum ">Total Protein Center or Plasma </content>7.8 G/DL<content styleCode="Ital ics"> (6.3-8.2 G/DL)</content> UNK 2.3-3.5 <content [facility] styleCode="Bold Medical ">Globulin Center </content>3.4 G/DL<content styleCode="Ital ics"> (2.3-3.5 G/DL)</content> UNK 4.2-5.8 Above high normal <content [facility] styleCode="Bold Medical ">Hemoglobin Center A1C </content>5.9 % H<content styleCode="Ital ics"> (4.2-5.8 %)</content> ID Date Data Source [facility].[id number] 10/08/2018 11:37:00 AM EDT [facility] Name Value Range Interpretation Description Data Sup porting Code Source(s) Document(s ) Potassium 3.5-5.3 <content [facility] [Moles/volume] in styleCode="Bold"> [facility] Serum or Plasma Potassium Medical </content>4.7 Center MEQ/L<content styleCode="Italic s"> (3.5-5.3 MEQ/L)</content> Sodium 137-145 <content [facility] [Moles/volume] in styleCode="Bold"> [facility] Serum or Plasma Sodium Medical </content>140 Center MEQ/L<content styleCode="Italic s"> (137-145 MEQ/L)</content> Creatinine 0.5-1.3 <content [facility] [Mass/volume] in styleCode="Bold"> Dereje hs Serum or Plasma Creatinine Medical </content>0.9 Center MG/DL<content styleCode="Italic s"> (0.5-1.3 MG/DL)</content> UNK 9-20 <content [facility] styleCode="Bold"> Marcela BUN </content>13 Medical MG/DL<content Center styleCode="Italic s"> (9-20 MG/DL)</content> Chloride 98-107 <content [facility] [Moles/volume] in styleCode="Bold"> [facility] E phs Serum or Plasma Chloride Medical </content>104 Center MEQ/L<content styleCode="Italic s"> (98-107 MEQ/L)</content> Glucose 74-106 <content [facility] [Mass/volume] in styleCode="Bold"> Dereje hs Serum or Plasma Glucose Medical </content>96 Center MG/DL<content styleCode="Italic s"> (74-106 MG/DL)</content> Carbon dioxide, 22-30 <content [facility] total styleCode="Bold"> Marcela [Moles/volume] in Carbon Dioxide Medical Serum or Plasma </content>29 Center MEQ/L<content styleCode="Italic s"> (22-30 MEQ/L)</content> Alanine 7-50 <content [facility] aminotransferase styleCode="Bold"> Dereje hs [Enzymatic Alanine Medical activity/volume] Aminotransferase Center in Serum or Plasma (ALT) </content>17 IU/L<content styleCode="Italic s"> (7-50 IU/L)</content> Calcium 8.4-10. <content [facility] [Mass/volume] in 2 styleCode="Bold"> Dereje hs Serum or Plasma Calcium Medical </content>9.9 Center MG/DL<content styleCode="Italic s"> (8.4-10.2 MG/DL)</content> UNK > 60 <content [facility] styleCode="Bold"> Marcela EGFR Medical </content>115 Center GFR<content styleCode="Italic s"> (> 60 GFR)</content> Aspartate 17-59 <content [facility] aminotransferase styleCode="Bold"> Dereje hs [Enzymatic Aspartate Medical activity/volume] Aminotransferase Center in Serum or Plasma (AST) </content>20 IU/L<content styleCode="Italic s"> (17-59 IU/L)</content> Alkaline 38-126 <content [facility] phosphatase styleCode="Bold"> Marcela [Enzymatic Alkaline Medical activity/volume] Phosphatase (ALP) Cente r in Serum or Plasma </content>80 IU/L<content styleCode="Italic s"> (38-126 IU/L)</content> Bilirubin.total 0.2-1.3 <content [facility] [Mass/volume] in styleCode="Bold"> Dereje hs Serum or Plasma Bilirubin Total Medical </content>0.8 Center MG/DL<content styleCode="Italic s"> (0.2-1.3 MG/DL)</content> Albumin 3.5-5.0 <content [facility] [Mass/volume] in styleCode="Bold"> Dereje hs Serum or Plasma Albumin Medical </content>4.4 Center G/DL<content styleCode="Italic s"> (3.5-5.0 G/DL)</content> ID Date Data Source [facility] 10/08/2018 11:37:00 AM EDT [facility] Name Value Range Interpretation Description Data Sup porting Code Source(s) Document(s ) Sodium 137-145 <content [facility] [Moles/volume] in styleCode="Bold"> [facility] Serum or Plasma Sodium Medical </content>138 Center MEQ/L<content styleCode="Italic s"> (137-145 MEQ/L)</content> Chloride 98-107 <content [facility] [Moles/volume] in styleCode="Bold"> [facility] Serum or Plasma Chloride Medical </content>107 Center MEQ/L<content styleCode="Italic s"> (98-107 MEQ/L)</content> UNK 9-20 <content Saint styleCode="Bold"> Marcela BUN </content>16 Medical MG/DL<content Center styleCode="Italic s"> (9-20 MG/DL)</content> Carbon dioxide, 22-30 <content [facility] total styleCode="Bold"> Marcela [Moles/volume] in Carbon Dioxide Medical Serum or Plasma </content>24 Center MEQ/L<content styleCode="Italic s"> (22-30 MEQ/L)</content> Potassium 3.5-5.3 <content [facility] [Moles/volume] in styleCode="Bold"> [facility] phs Serum or Plasma Potassium Medical </content>4.4 Center MEQ/L<content styleCode="Italic s"> (3.5-5.3 MEQ/L)</content> Creatinine 0.5-1.3 <content [facility] [Mass/volume] in styleCode="Bold"> Dereje hs Serum or Plasma Creatinine Medical </content>0.8 Center MG/DL<content styleCode="Italic s"> (0.5-1.3 MG/DL)</content> Glucose 74-106 Above high <content [facility] [Mass/volume] in normal styleCode="Bold"> Dereje hs Serum or Plasma Glucose Medical </content>129 Center MG/DL H<content styleCode="Italic s"> (74-106 MG/DL)</content> UNK > 60 <content Saint styleCode="Bold"> Marcela EGFR Medical </content>132 Center GFR<content styleCode="Italic s"> (> 60 GFR)</content> Aspartate 17-59 <content [facility] aminotransferase styleCode="Bold"> Dereje hs [Enzymatic Aspartate Medical activity/volume] Aminotransferase Center in Serum or Plasma (AST) </content>25 IU/L<content styleCode="Italic s"> (17-59 IU/L)</content> Calcium 8.4-10. <content [facility] [Mass/volume] in 2 styleCode="Bold"> Dereje hs Serum or Plasma Calcium Medical </content>9.9 Center MG/DL<content styleCode="Italic s"> (8.4-10.2 MG/DL)</content> Alkaline 38-126 <content [facility] phosphatase styleCode="Bold"> Marcela [Enzymatic Alkaline Medical activity/volume] Phosphatase (ALP) Cente r in Serum or Plasma </content>68 IU/L<content styleCode="Italic s"> (38-126 IU/L)</content> Alanine 7-50 <content [facility] aminotransferase styleCode="Bold"> Dereje hs [Enzymatic Alanine Medical activity/volume] Aminotransferase Center in Serum or Plasma (ALT) </content>25 IU/L<content styleCode="Italic s"> (7-50 IU/L)</content> Albumin 3.5-5.0 <content [facility] [Mass/volume] in styleCode="Bold"> Dereje hs Serum or Plasma Albumin Medical </content>4.4 Center G/DL<content styleCode="Italic s"> (3.5-5.0 G/DL)</content> Bilirubin.total 0.2-1.3 <content [facility] [Mass/volume] in styleCode="Bold"> Dereje hs Serum or Plasma Bilirubin Total Medical </content>0.6 Center MG/DL<content styleCode="Italic s"> (0.2-1.3 MG/DL)</content> Sodium 137-145 <content Saint [Moles/volume] in styleCode="Bold"> Luis E phs Serum or Plasma Sodium Medical </content>140 Center MEQ/L<content styleCode="Italic s"> (137-145 MEQ/L)</content> Creatinine 0.5-1.3 <content [facility] [Mass/volume] in styleCode="Bold"> Dereje hs Serum or Plasma Creatinine Medical </content>0.9 Center MG/DL<content styleCode="Italic s"> (0.5-1.3 MG/DL)</content> UNK 9-20 <content Saint styleCode="Bold"> Marcela BUN </content>13 Medical MG/DL<content Center styleCode="Italic s"> (9-20 MG/DL)</content> Carbon dioxide, 22-30 <content [facility] total styleCode="Bold"> Marcela [Moles/volume] in Carbon Dioxide Medical Serum or Plasma </content>29 Center MEQ/L<content styleCode="Italic s"> (22-30 MEQ/L)</content> Chloride 98-107 <content [facility] [Moles/volume] in styleCode="Bold"> Luis E phs Serum or Plasma Chloride Medical </content>104 Center MEQ/L<content styleCode="Italic s"> (98-107 MEQ/L)</content> Potassium 3.5-5.3 <content [facility] [Moles/volume] in styleCode="Bold"> Luis E phs Serum or Plasma Potassium Medical </content>4.7 Center MEQ/L<content styleCode="Italic s"> (3.5-5.3 MEQ/L)</content> UNK > 60 <content Saint styleCode="Bold"> Marcela EGFR Medical </content>115 Center GFR<content styleCode="Italic s"> (> 60 GFR)</content> Calcium 8.4-10. <content Saint [Mass/volume] in 2 styleCode="Bold"> Dereje hs Serum or Plasma Calcium Medical </content>9.9 Center MG/DL<content styleCode="Italic s"> (8.4-10.2 MG/DL)</content> Glucose 74-106 <content [facility] [Mass/volume] in styleCode="Bold"> Dereje hs Serum or Plasma Glucose Medical </content>96 Center MG/DL<content styleCode="Italic s"> (74-106 MG/DL)</content> Bilirubin.total 0.2-1.3 <content [facility] [Mass/volume] in styleCode="Bold"> Dereje hs Serum or Plasma Bilirubin Total Medical </content>0.8 Center MG/DL<content styleCode="Italic s"> (0.2-1.3 MG/DL)</content> Alkaline 38-126 <content [facility] phosphatase styleCode="Bold"> Marcela [Enzymatic Alkaline Medical activity/volume] Phosphatase (ALP) Cente r in Serum or Plasma </content>80 IU/L<content styleCode="Italic s"> (38-126 IU/L)</content> Alanine 7-50 <content [facility] aminotransferase styleCode="Bold"> Dereje hs [Enzymatic Alanine Medical activity/volume] Aminotransferase Center in Serum or Plasma (ALT) </content>17 IU/L<content styleCode="Italic s"> (7-50 IU/L)</content> Aspartate 17-59 <content [facility] aminotransferase styleCode="Bold"> Dereje hs [Enzymatic Aspartate Medical activity/volume] Aminotransferase Center in Serum or Plasma (AST) </content>20 IU/L<content styleCode="Italic s"> (17-59 IU/L)</content> Albumin 3.5-5.0 <content [facility] [Mass/volume] in styleCode="Bold"> Dereje hs Serum or Plasma Albumin Medical </content>4.4 Center G/DL<content styleCode="Italic s"> (3.5-5.0 G/DL)</content> ID Date Data Source CHMROUTINECCDA 10/08/2018 11:37:00 AM EDT [facility] Name Value Range Interpretation Description Data Sup porting Code Source(s) Document(s ) Protein 6.3-8.2 <content [facility] [Mass/volum styleCode="Bold Medical e] in Serum ">Total Protein Center or Plasma </content>7.6 G/DL<content styleCode="Ital ics"> (6.3-8.2 G/DL)</content> UNK 2.3-3.5 <content [facility] styleCode="Bold Medical ">Globulin Center </content>3.2 G/DL<content styleCode="Ital ics"> (2.3-3.5 G/DL)</content> UNK >= 1.0 <content [facility] styleCode="Bold Medical ">AG Ratio Center </content>1.4 NM<content styleCode="Ital ics"> (>= 1.0 NM)</content> Protein 6.3-8.2 <content [facility] [Mass/volum styleCode="Bold Medical e] in Serum ">Total Protein Center or Plasma </content>7.8 G/DL<content styleCode="Ital ics"> (6.3-8.2 G/DL)</content> UNK 4.2-5.8 Above high normal <content [facility] styleCode="Bold Medical ">Hemoglobin Center A1C </content>5.9 % H<content styleCode="Ital ics"> (4.2-5.8 %)</content> UNK 2.3-3.5 <content [facility] styleCode="Bold Medical ">Globulin Center </content>3.4 G/DL<content styleCode="Ital ics"> (2.3-3.5 G/DL)</content> UNK >= 1.0 <content [facility] styleCode="Bold Medical ">AG Ratio Center </content>1.3 <content styleCode="Ital ics"> (>= 1.0 )</content> ID Date Data Source GFR(Creatinine) 10/08/2018 11:37:00 AM EDT [facility] Name Value Range Interpretation Code Description Data Jazzmine rce(s) Supporting Document(s ) UNK > 60 <content [facility] styleCode="Bold"> Medical Cent er EGFR </content>132 GFR<content styleCode="Italic s"> (> 60 GFR)</content> UNK > 60 <content [facility] styleCode="Bold"> Medical Cent er EGFR </content>115 GFR<content styleCode="Italic s"> (> 60 GFR)</content> ID Date Data Source HematologyRou 10/08/2018 11:37:00 AM T [facility] Name Value Range Interpretation Description Data Sup porting Code Source(s) Document(s ) Leukocytes 4.4-11.0 <content [facility] [#/volume] in styleCode="Bold Marcela Blood by ">White Blood Medical Automated count Cell Count Center </content>6.94 KCUMM<content styleCode="Ital ics"> (4.4-11.0 KCUMM)</content > Erythrocytes 4.4-5.9 <content [facility] [#/volume] in styleCode="Bold Marcela Blood by ">Red Blood Medical Automated count Cell Count Center </content>4.87 MCUMM<content styleCode="Ital ics"> (4.4-5.9 MCUMM)</content > Hematocrit 41.0-53. Below low normal <content [facility] [Volume 0 styleCode="Bold Marcela Fraction] of ">Hematocrit Medical Blood by </content>40.5 Center Automated count % L<content styleCode="Ital ics"> (41.0-53.0 %)</content> Hemoglobin 13.5-17. <content [facility] [Mass/volume] in 5 styleCode="Bold Marcela Blood ">Hemoglobin Medical </content>14.3 Center G/DL<content styleCode="Ital ics"> (13.5-17.5 G/DL)</content> Erythrocyte mean 32.0-37. <content [facility] corpuscular 0 styleCode="Bold Marcela hemoglobin ">Mean Corpus. Medical concentration Hgb Center [Mass/volume] by Concentration Automated count (MCHC) </content>35.3 G/DL<content styleCode="Ital ics"> (32.0-37.0 G/DL)</content> Erythrocyte mean 26.0-34. <content [facility] corpuscular 0 styleCode="Bold Marcela hemoglobin ">Mean Medical [Entitic mass] Corposcular Center by Automated Hemoglobin count </content>29.4 PG<content styleCode="Ital ics"> (26.0-34.0 PG)</content> Erythrocyte 11.5-14. <content [facility] distribution 5 styleCode="Bold Marcela width [Ratio] by ">Red Cell Medical Automated count Distribution Center Width </content>13.7 %<content styleCode="Ital ics"> (11.5-14.5 %)</content> Erythrocyte mean 80.0-100 <content [facility] corpuscular .0 styleCode="Bold Marcela volume [Entitic ">Mean Medical volume] by Corpuscular Center Automated count Volume </content>83.2 FL<content styleCode="Ital ics"> (80.0-100.0 FL)</content> Platelets 130-400 <content [facility] [#/volume] in styleCode="Bold Marcela Blood by ">Platelet Medical Automated count Count Center </content>313 KCUMM<content styleCode="Ital ics"> (130-400 KCUMM)</content > UNK 0.0 <content [facility] styleCode="Bold Marcela ">Nucleated Red Medical Blood Cell Center Count </content>0.00 KCUMM<content styleCode="Ital ics"> (0.0 KCUMM)</content > Platelet mean 8.0-11.0 <content [facility] volume [Entitic styleCode="Bold Marcela volume] in Blood ">Mean Platelet Medical by Automated Volume Center count </content>9.9 FL<content styleCode="Ital ics"> (8.0-11.0 FL)</content> UNK 0 <content [facility] styleCode="Bold Marcela ">Nucleated Red Medical Blood Cell Center </content>0.0 /100<content styleCode="Ital ics"> (0 /100)</content> ID Date Data Source HematologySpeci 10/08/2018 11:37:00 AM EDT [facility] Name Value Range Interpretation Description Data Sup porting Code Source(s) Document(s ) Erythrocyte < 15 Above high normal <content [facility] sedimentation styleCode="Bold" Marcela rate by >Erythrocyte [facility] Sedementation Center method Rate (ESR) </content>17 MM/hr H<content styleCode="Itali cs"> (< 15 MM/hr)</content> ID Date Data Source Hormones 10/08/2018 11:37:00 AM T [facility] Name Value Range Interpretation Description Data Sup porting Code Source(s) Document(s ) Thyrotropin 0.465-4. <content [facility] [Units/volume] 68 styleCode="Farnaz Marcela in Serum or d">Thyroid Medical Plasma by Stimulating Center Detection Hormone limit <= 0.05 </content>1.19 mIU/L MIU/L<content styleCode="Karla lics"> (0.465-4.68 MIU/L)</conten t> ID Date Data Source LIPID 10/08/2018 11:37:00 AM EDT [facility] Name Value Range Interpretation Description Data Sup porting Code Source(s) Document(s ) UNK > 60 Below low normal <content [facility] styleCode="Farnaz Marcela d">HDL- Medical Cholesterol Center </content>33 MG/DL L<content styleCode="Karla lics"> (> 60 MG/DL)</conten t> Triglyceride < 150 <content [facility] [Mass/volume] in styleCode="[facility] Marcela Serum or Plasma d">Triglycerid Medical es Center </content>81 MG/DL<content styleCode="Karla lics"> (< 150 MG/DL)</conten t> Cholesterol -<200 Above high normal <content [facility] [Mass/volume] in styleCode="[facility] Serum or Plasma d">Cholesterol Medical </content>247 Center MG/DL H<content styleCode="Karla lics"> (-<200 MG/DL)</conten t> UNK < 100 Above high normal <content [facility] styleCode="Farnaz Marcela d">LDL-Cholest Medical maggie Center </content>198 MG/DL H<content styleCode="Karla lics"> (< 100 MG/DL)</conten t> ID Date Data Source Liver Profile 10/08/2018 11:37:00 AM EDT [facility] Name Value Range Interpretation Description Data Sup porting Code Source(s) Document(s ) Aspartate 17-59 <content [facility] aminotransferase styleCode="Bold"> Dereje hs [Enzymatic Aspartate Medical activity/volume] Aminotransferase Center in Serum or Plasma (AST) </content>25 IU/L<content styleCode="Italic s"> (17-59 IU/L)</content> Albumin 3.5-5.0 <content [facility] [Mass/volume] in styleCode="Bold"> Dereje hs Serum or Plasma Albumin Medical </content>4.4 Center G/DL<content styleCode="Italic s"> (3.5-5.0 G/DL)</content> Alanine 7-50 <content [facility] aminotransferase styleCode="Bold"> Dereje hs [Enzymatic Alanine Medical activity/volume] Aminotransferase Center in Serum or Plasma (ALT) </content>25 IU/L<content styleCode="Italic s"> (7-50 IU/L)</content> Alkaline 38-126 <content [facility] phosphatase styleCode="Bold"> Marcela [Enzymatic Alkaline Medical activity/volume] Phosphatase (ALP) Cente r in Serum or Plasma </content>68 IU/L<content styleCode="Italic s"> (38-126 IU/L)</content> Bilirubin.total 0.2-1.3 <content [facility] [Mass/volume] in styleCode="Bold"> Dereje hs Serum or Plasma Bilirubin Total Medical </content>0.6 Center MG/DL<content styleCode="Italic s"> (0.2-1.3 MG/DL)</content> Alkaline 38-126 <content [facility] phosphatase styleCode="Bold"> Marcela [Enzymatic Alkaline Medical activity/volume] Phosphatase (ALP) Cente r in Serum or Plasma </content>80 IU/L<content styleCode="Italic s"> (38-126 IU/L)</content> Alanine 7-50 <content [facility] aminotransferase styleCode="Bold"> Dereje hs [Enzymatic Alanine Medical activity/volume] Aminotransferase Center in Serum or Plasma (ALT) </content>17 IU/L<content styleCode="Italic s"> (7-50 IU/L)</content> Aspartate 17-59 <content [facility] aminotransferase styleCode="Bold"> Dereje hs [Enzymatic Aspartate Medical activity/volume] Aminotransferase Center in Serum or Plasma (AST) </content>20 IU/L<content styleCode="Italic s"> (17-59 IU/L)</content> Albumin 3.5-5.0 <content [facility] [Mass/volume] in styleCode="Bold"> Dereje hs Serum or Plasma Albumin Medical </content>4.4 Center G/DL<content styleCode="Italic s"> (3.5-5.0 G/DL)</content> Bilirubin.total 0.2-1.3 <content [facility] [Mass/volume] in styleCode="Bold"> Dereje hs Serum or Plasma Bilirubin Total Medical </content>0.8 Center MG/DL<content styleCode="Italic s"> (0.2-1.3 MG/DL)</content> ID Date Data Source Liver 06/26/2018 02:00:00 PM EST [facility] Profile.[id number] Name Value Range Interpretation Description Data Sup porting Code Source(s) Document(s ) Aspartate 17-59 <content [facility] aminotransferase styleCode="Bold"> Dereje hs [Enzymatic Aspartate Medical activity/volume] Aminotransferase Center in Serum or Plasma (AST) </content>25 IU/L<content styleCode="Italic s"> (17-59 IU/L)</content> Alanine 7-50 <content [facility] aminotransferase styleCode="Bold"> Dereje hs [Enzymatic Alanine Medical activity/volume] Aminotransferase Center in Serum or Plasma (ALT) </content>25 IU/L<content styleCode="Italic s"> (7-50 IU/L)</content> Bilirubin.total 0.2-1.3 <content [facility] [Mass/volume] in styleCode="Bold"> Dereje hs Serum or Plasma Bilirubin Total Medical </content>0.6 Center MG/DL<content styleCode="Italic s"> (0.2-1.3 MG/DL)</content> Alkaline 38-126 <content [facility] phosphatase styleCode="Bold"> Marcela [Enzymatic Alkaline Medical activity/volume] Phosphatase (ALP) Cente r in Serum or Plasma </content>68 IU/L<content styleCode="Italic s"> (38-126 IU/L)</content> Albumin 3.5-5.0 <content [facility] [Mass/volume] in styleCode="Bold"> Dereje hs Serum or Plasma Albumin Medical </content>4.4 Center G/DL<content styleCode="Italic s"> (3.5-5.0 G/DL)</content> ID Date Data Source GFR(Creatinine).[id number] 06/26/2018 02:00:00 PM EST [facility] 0-0500 Name Value Range Interpretation Code Description Data Jazzmine rce(s) Supporting Document(s ) UNK > 60 <content [facility] styleCode="Bold"> Medical Cent er EGFR </content>132 GFR<content styleCode="Italic s"> (> 60 GFR)</content> ID Date Data Source ROBERTMROUTINECCSHARIFA.[id number] 06/26/2018 02:00:00 PM EST [facility] -0500 Name Value Range Interpretation Description Data Sup porting Code Source(s) Document(s ) UNK >= 1.0 <content [facility] styleCode="Bold Medical ">AG Ratio Center </content>1.4 NM<content styleCode="Ital ics"> (>= 1.0 NM)</content> UNK 2.3-3.5 <content [facility] styleCode="Bold Medical ">Globulin Center </content>3.2 G/DL<content styleCode="Ital ics"> (2.3-3.5 G/DL)</content> Protein 6.3-8.2 <content [facility] [Mass/volum styleCode="Bold Medical e] in Serum ">Total Protein Center or Plasma </content>7.6 G/DL<content styleCode="Ital ics"> (6.3-8.2 G/DL)</content> ID Date Data Source [facility].[id number] 06/26/2018 02:00:00 PM EST [facility] Name Value Range Interpretation Description Data Sup porting Code Source(s) Document(s ) Sodium 137-145 <content [facility] [Moles/volume] in styleCode="Bold"> [facility] Serum or Plasma Sodium Medical </content>138 Center MEQ/L<content styleCode="Italic s"> (137-145 MEQ/L)</content> Chloride 98-107 <content [facility] [Moles/volume] in styleCode="Bold"> [facility] Serum or Plasma Chloride Medical </content>107 Center MEQ/L<content styleCode="Italic s"> (98-107 MEQ/L)</content> Carbon dioxide, 22-30 <content [facility] total styleCode="Bold"> Marcela [Moles/volume] in Carbon Dioxide Medical Serum or Plasma </content>24 Center MEQ/L<content styleCode="Italic s"> (22-30 MEQ/L)</content> Potassium 3.5-5.3 <content [facility] [Moles/volume] in styleCode="Bold"> [facility] Serum or Plasma Potassium Medical </content>4.4 Center MEQ/L<content styleCode="Italic s"> (3.5-5.3 MEQ/L)</content> Creatinine 0.5-1.3 <content [facility] [Mass/volume] in styleCode="Bold"> Dereje hs Serum or Plasma Creatinine Medical </content>0.8 Center MG/DL<content styleCode="Italic s"> (0.5-1.3 MG/DL)</content> UNK 9-20 <content [facility] styleCode="Bold"> Marcela BUN </content>16 Medical MG/DL<content Center styleCode="Italic s"> (9-20 MG/DL)</content> Glucose 74-106 Above high <content [facility] [Mass/volume] in normal styleCode="Bold"> Dereje hs Serum or Plasma Glucose Medical </content>129 Center MG/DL H<content styleCode="Italic s"> (74-106 MG/DL)</content> Alanine 7-50 <content [facility] aminotransferase styleCode="Bold"> Dereje hs [Enzymatic Alanine Medical activity/volume] Aminotransferase Center in Serum or Plasma (ALT) </content>25 IU/L<content styleCode="Italic s"> (7-50 IU/L)</content> UNK > 60 <content [facility] styleCode="Bold"> Marcela EGFR Medical </content>132 Center GFR<content styleCode="Italic s"> (> 60 GFR)</content> Calcium 8.4-10. <content [facility] [Mass/volume] in 2 styleCode="Bold"> Dereje hs Serum or Plasma Calcium Medical </content>9.9 Center MG/DL<content styleCode="Italic s"> (8.4-10.2 MG/DL)</content> Aspartate 17-59 <content [facility] aminotransferase styleCode="Bold"> Dereje hs [Enzymatic Aspartate Medical activity/volume] Aminotransferase Center in Serum or Plasma (AST) </content>25 IU/L<content styleCode="Italic s"> (17-59 IU/L)</content> Alkaline 38-126 <content [facility] phosphatase styleCode="Bold"> Marcela [Enzymatic Alkaline Medical activity/volume] Phosphatase (ALP) Cente r in Serum or Plasma </content>68 IU/L<content styleCode="Italic s"> (38-126 IU/L)</content> Albumin 3.5-5.0 <content [facility] [Mass/volume] in styleCode="Bold"> Dereje hs Serum or Plasma Albumin Medical </content>4.4 Center G/DL<content styleCode="Italic s"> (3.5-5.0 G/DL)</content> Bilirubin.total 0.2-1.3 <content [facility] [Mass/volume] in styleCode="Bold"> Dereje hs Serum or Plasma Bilirubin Total Medical </content>0.6 Center MG/DL<content styleCode="Italic s"> (0.2-1.3 MG/DL)</content> ID Date Data Source Urinalysis.[id number] 04/22/2018 03:10:00 PM EDT [facility] 0 Name Value Range Interpretation Description Data Sup porting Code Source(s) Document(s ) Glucose NEGATIVE <content [facility] [Mass/volume] styleCode="Farnaz Medrano in Urine by d">Urine Medical Test strip Glucose Center </content>NEGA TIVE MG/DL<content styleCode="Karla lics"> (NEGATIVE MG/DL)</conten t> UNK NEGATIVE <content [facility] styleCode="[facility] d">Urine Medical Bilirubin Center </content>NEGA TIVE <content styleCode="Karla lics"> (NEGATIVE )</content> UNK CLEAR <content [facility] styleCode="Farnaz Marcela d">Urine Medical Clarity Center </content>TRANG R <content styleCode="Karla lics"> (CLEAR )</content> Color of Urine YELLOW <content [facility] styleCode="[facility] d">Color, Medical Urine Center </content>YELL OW <content styleCode="Karla lics"> (YELLOW )</content> Ketones NEGATIVE <content [facility] [Mass/volume] styleCode="Farnaz Sha[facility] in Urine by d">Urine Medical Test strip Ketone Center </content>NEGA TIVE MG/DL<content styleCode="Karla lics"> (NEGATIVE MG/DL)</conten t> Protein NEGATIVE <content [facility] [Mass/volume] styleCode="Farnaz Marcela in Urine by d">Urine Medical Test strip Protein Center </content>NEGA TIVE MG/DL<content styleCode="Karla lics"> (NEGATIVE MG/DL)</conten t> Specific 1.015-1.02 <content [facility] gravity of 5 styleCode="Farnaz Marcela Urine by Test d">Urine Medical strip Specific Center [place] </content>1.02 0 NM<content styleCode="Karla lics"> (1.015-1.025 NM)</content> pH of Urine by 4.5-8.0 <content [facility] Test strip styleCode="Farnaz Marcela d">Urine pH Medical </content>6.0 Center NM<content styleCode="Karla lics"> (4.5-8.0 NM)</content> Hemoglobin NEGATIVE <content [facility] [Presence] in styleCode="Farnaz Marcela Urine by Test d">Urine Blood Medical strip </content>NEGA Center TIVE <content styleCode="Karla lics"> (NEGATIVE )</content> Urobilinogen 0.2-1.0 <content [facility] [Units/volume] styleCode="Farnaz Marcela in Urine by d">Urine Medical Test strip Urobilinogen Center </content>0.2 MG/DL<content styleCode="Karla lics"> (0.2-1.0 MG/DL)</conten t> Leukocyte NEGATIVE <content [facility] esterase styleCode="Farnaz Marcela [Presence] in d">Urine Medical Urine by Test Leukocyte Center strip </content>NEGA TIVE <content styleCode="Karla lics"> (NEGATIVE )</content> Nitrite NEGATIVE <content [facility] [Presence] in styleCode="Farnaz Marcela Urine by Test d">Urine Medical strip Nitrite Center </content>NEGA TIVE <content styleCode="Karla lics"> (NEGATIVE )</content> ID Date Data Source Liver 04/22/2018 03:10:00 PM EDT [facility] Profile.[id number] Name Value Range Interpretation Description Data Sup porting Code Source(s) Document(s ) Aspartate 17-59 <content [facility] aminotransferase styleCode="Bold"> Dereje hs [Enzymatic Aspartate Medical activity/volume] Aminotransferase Center in Serum or Plasma (AST) </content>45 IU/L<content styleCode="Italic s"> (17-59 IU/L)</content> Alanine 7-50 <content [facility] aminotransferase styleCode="Bold"> Dereje hs [Enzymatic Alanine Medical activity/volume] Aminotransferase Center in Serum or Plasma (ALT) </content>12 IU/L<content styleCode="Italic s"> (7-50 IU/L)</content> Bilirubin.total 0.2-1.3 <content [facility] [Mass/volume] in styleCode="Bold"> Dereje hs Serum or Plasma Bilirubin Total Medical </content>0.5 Center MG/DL<content styleCode="Italic s"> (0.2-1.3 MG/DL)</content> Alkaline 38-126 <content [facility] phosphatase styleCode="Bold"> Marcela [Enzymatic Alkaline Medical activity/volume] Phosphatase (ALP) Cente r in Serum or Plasma </content>84 IU/L<content styleCode="Italic s"> (38-126 IU/L)</content> Albumin 3.5-5.0 <content [facility] [Mass/volume] in styleCode="Bold"> Dereje hs Serum or Plasma Albumin Medical </content>4.1 Center G/DL<content styleCode="Italic s"> (3.5-5.0 G/DL)</content> ID Date Data Source LIPID.[id number] 04/22/2018 03:10:00 PM EDT [facility] Name Value Range Interpretation Description Data Sup porting Code Source(s) Document(s ) Triglyceride < 150 <content [facility] [Mass/volume] in styleCode="Farnaz [facility] Serum or Plasma d">Triglycerid [facility] Center </content>98 MG/DL<content styleCode="Karla lics"> (< 150 MG/DL)</conten t> UNK > 60 Below low normal <content Saint styleCode="Farnaz Marcela d">HDL- Medical Cholesterol Center </content>31 MG/DL L<content styleCode="Karla lics"> (> 60 MG/DL)</conten t> Cholesterol -<200 Above high normal <content [facility] [Mass/volume] in styleCode="[facility] Serum or Plasma d">Cholesterol Medical </content>251 Center MG/DL H<content styleCode="Karla lics"> (-<200 MG/DL)</conten t> UNK < 100 Above high normal <content Saint styleCode="Farnaz Marcela d">LDL-Cholest Medical maggie Center </content>200 MG/DL H<content styleCode="Karla lics"> (< 100 MG/DL)</conten t> ID Date Data Source HematologyRou.[id number] 04/22/2018 03:10:00 PM EDT [facility] 0400 Name Value Range Interpretation Description Data Sup porting Code Source(s) Document(s ) Erythrocytes 4.4-5.9 <content [facility] [#/volume] in styleCode="Bold Marcela Blood by ">Red Blood Medical Automated count Cell Count Center </content>4.93 MCUMM<content styleCode="Ital ics"> (4.4-5.9 MCUMM)</content > Hemoglobin 13.5-17. <content [facility] [Mass/volume] in 5 styleCode="Bold Marcela Blood ">Hemoglobin Medical </content>13.9 Center G/DL<content styleCode="Ital ics"> (13.5-17.5 G/DL)</content> Leukocytes 4.4-11.0 <content [facility] [#/volume] in styleCode="Bold Marcela Blood by ">White Blood Medical Automated count Cell Count Center </content>7.17 KCUMM<content styleCode="Ital ics"> (4.4-11.0 KCUMM)</content > Erythrocyte mean 26.0-34. <content [facility] corpuscular 0 styleCode="Bold Marcela hemoglobin ">Mean Medical [Entitic mass] Corposcular Center by Automated Hemoglobin count </content>28.2 PG<content styleCode="Ital ics"> (26.0-34.0 PG)</content> Hematocrit 41.0-53. Below low normal <content [facility] [Volume 0 styleCode="Bold Marcela Fraction] of ">Hematocrit Medical Blood by </content>38.9 Center Automated count % L<content styleCode="Ital ics"> (41.0-53.0 %)</content> Erythrocyte mean 80.0-100 <content [facility] corpuscular .0 styleCode="Bold Marcela volume [Entitic ">Mean Medical volume] by Corpuscular Center Automated count Volume </content>78.9 FL<content styleCode="Ital ics"> (80.0-100.0 FL)</content> Platelets 130-400 <content [facility] [#/volume] in styleCode="Bold Marcela Blood by ">Platelet Medical Automated count Count Center </content>288 KCUMM<content styleCode="Ital ics"> (130-400 KCUMM)</content > Erythrocyte 11.5-14. <content [facility] distribution 5 styleCode="Bold Marcela width [Ratio] by ">Red Cell Medical Automated count Distribution Center Width </content>13.6 %<content styleCode="Ital ics"> (11.5-14.5 %)</content> Erythrocyte mean 32.0-37. <content [facility] corpuscular 0 styleCode="Bold Marcela hemoglobin ">Mean Corpus. Medical concentration Hgb Center [Mass/volume] by Concentration Automated count (MCHC) </content>35.7 G/DL<content styleCode="Ital ics"> (32.0-37.0 G/DL)</content> Neutrophils 36-66 <content [facility] [#/volume] in styleCode="Bold Marcela Blood by ">Neutrophil Medical Automated count </content>38.1 Center %<content styleCode="Ital ics"> (36-66 %)</content> UNK 1.6-7.3 <content [facility] styleCode="Bold Marcela ">Neutrophil Medical Count Center </content>2.73 KCUMM<content styleCode="Ital ics"> (1.6-7.3 KCUMM)</content > Platelet mean 8.0-11.0 <content [facility] volume [Entitic styleCode="Bold Marcela volume] in Blood ">Mean Platelet Medical by Automated Volume Center count </content>9.7 FL<content styleCode="Ital ics"> (8.0-11.0 FL)</content> Lymphocytes 24.0-44. Above high <content [facility] [#/volume] in 0 normal styleCode="Bold Marcela Blood by ">Lymphocyte Medical Automated count </content>50.2 Center % H<content styleCode="Ital ics"> (24.0-44.0 %)</content> UNK 1.0-4.8 <content [facility] styleCode="Bold Marcela ">Lymphocyte Medical Count Center </content>3.60 KCUMM<content styleCode="Ital ics"> (1.0-4.8 KCUMM)</content > Monocytes 3.0-10.0 <content [facility] [#/volume] in styleCode="Bold Marcela Blood by ">Monocyte Medical Automated count </content>8.4 Center %<content styleCode="Ital ics"> (3.0-10.0 %)</content> Eosinophils 0-5.0 <content [facility] [#/volume] in styleCode="Bold Marcela Blood by ">Eosinophil Medical Automated count </content>2.6 Center %<content styleCode="Ital ics"> (0-5.0 %)</content> UNK 0.2-0.9 <content [facility] styleCode="Bold Marcela ">Monocyte Medical Count Center </content>0.60 KCUMM<content styleCode="Ital ics"> (0.2-0.9 KCUMM)</content > UNK 0.0-0.6 <content [facility] styleCode="Bold Marcela ">Eosinophil Medical Count Center </content>0.19 KCUMM<content styleCode="Ital ics"> (0.0-0.6 KCUMM)</content > Basophils 0.0-1.0 <content [facility] [#/volume] in styleCode="Bold Marcela Blood by ">Basophil Medical Automated count </content>0.4 Center %<content styleCode="Ital ics"> (0.0-1.0 %)</content> UNK 0.0-0.3 <content [facility] styleCode="Bold Marcela ">Basophil Medical Count Center </content>0.03 KCUMM<content styleCode="Ital ics"> (0.0-0.3 KCUMM)</content > UNK 0.0 <content [facility] styleCode="Bold Marcela ">Nucleated Red Medical Blood Cell Center Count </content>0.00 KCUMM<content styleCode="Ital ics"> (0.0 KCUMM)</content > UNK 0 <content [facility] styleCode="Bold Marcela ">Nucleated Red Medical Blood Cell Center </content>0.0 /100<content styleCode="Ital ics"> (0 /100)</content> UNK 0-0.1 <content [facility] styleCode="Bold Marcela ">Immature Medical Granulocyte Center Count </content>0.02 KCUMM<content styleCode="Ital ics"> (0-0.1 KCUMM)</content > UNK < 1 <content [facility] styleCode="Bold Marcela ">Immature Medical Granulocyte Center Ratio </content>0.3 %<content styleCode="Ital ics"> (< 1 %)</content> ID Date Data Source GFR(Creatinine).[id number] 04/22/2018 03:10:00 PM EDT [facility] 0-0400 Name Value Range Interpretation Code Description Data Jazzmine rce(s) Supporting Document(s ) UNK > 60 <content [facility] styleCode="Bold"> Medical Cent er EGFR </content>132 GFR<content styleCode="Italic s"> (> 60 GFR)</content> ID Date Data Source CHMROUTINECCDA.[id number] 04/22/2018 03:10:00 PM EDT [facility] -0400 Name Value Range Interpretation Description Data Sup porting Code Source(s) Document(s ) UNK >= 1.0 <content [facility] styleCode="Bold Medical ">AG Ratio Center </content>1.2 NM<content styleCode="Ital ics"> (>= 1.0 NM)</content> UNK 2.3-3.5 <content [facility] styleCode="Bold Medical ">Globulin Center </content>3.4 G/DL<content styleCode="Ital ics"> (2.3-3.5 G/DL)</content> UNK 4.2-5.8 Above high normal <content [facility] styleCode="Bold Medical ">Hemoglobin Center A1C </content>6.2 % H<content styleCode="Ital ics"> (4.2-5.8 %)</content> Protein 6.3-8.2 <content [facility] [Mass/volum styleCode="Bold Medical e] in Serum ">Total Protein Center or Plasma </content>7.5 G/DL<content styleCode="Ital ics"> (6.3-8.2 G/DL)</content> ID Date Data Source [facility].[id number] 04/22/2018 03:10:00 PM EDT [facility] Name Value Range Interpretation Description Data Sup porting Code Source(s) Document(s ) Chloride 98-107 <content Saint [Moles/volume] in styleCode="Bold"> [facility] Serum or Plasma Chloride Medical </content>103 Center MEQ/L<content styleCode="Italic s"> (98-107 MEQ/L)</content> Sodium 137-145 <content Saint [Moles/volume] in styleCode="Bold"> [facility] Serum or Plasma Sodium Medical </content>138 Center MEQ/L<content styleCode="Italic s"> (137-145 MEQ/L)</content> Potassium 3.5-5.3 <content [facility] [Moles/volume] in styleCode="Bold"> [facility] Serum or Plasma Potassium Medical </content>4.8 Center MEQ/L<content styleCode="Italic s"> (3.5-5.3 MEQ/L)</content> Carbon dioxide, 22-30 <content Saint total styleCode="Bold"> Marcela [Moles/volume] in Carbon Dioxide Medical Serum or Plasma </content>30 Center MEQ/L<content styleCode="Italic s"> (22-30 MEQ/L)</content> UNK 9-20 <content [facility] styleCode="Bold"> Marcela BUN </content>9 Medical MG/DL<content Center styleCode="Italic s"> (9-20 MG/DL)</content> Creatinine 0.5-1.3 <content [facility] [Mass/volume] in styleCode="Bold"> [facility] Serum or Plasma Creatinine Medical </content>0.8 Center MG/DL<content styleCode="Italic s"> (0.5-1.3 MG/DL)</content> Calcium 8.4-10. <content [facility] [Mass/volume] in 2 styleCode="Bold"> [facility] Serum or Plasma Calcium Medical </content>9.8 Center MG/DL<content styleCode="Italic s"> (8.4-10.2 MG/DL)</content> Glucose 74-106 <content [facility] [Mass/volume] in styleCode="Bold"> [facility]re[facility] hs Serum or Plasma Glucose Medical </content>89 Center MG/DL<content styleCode="Italic s"> (74-106 MG/DL)</content> UNK > 60 <content [facility] styleCode="Bold"> Marcela EGFR Medical </content>132 Center GFR<content styleCode="Italic s"> (> 60 GFR)</content> Alkaline 38-126 <content [facility] phosphatase styleCode="Bold"> Marcela [Enzymatic Alkaline Medical activity/volume] Phosphatase (ALP) Cente r in Serum or Plasma </content>84 IU/L<content styleCode="Italic s"> (38-126 IU/L)</content> Alanine 7-50 <content [facility] aminotransferase styleCode="Bold"> [facility]reje hs [Enzymatic Alanine Medical activity/volume] Aminotransferase Center in Serum or Plasma (ALT) </content>12 IU/L<content styleCode="Italic s"> (7-50 IU/L)</content> Aspartate 17-59 <content [facility] aminotransferase styleCode="Bold"> Dereje hs [Enzymatic Aspartate Medical activity/volume] Aminotransferase Center in Serum or Plasma (AST) </content>45 IU/L<content styleCode="Italic s"> (17-59 IU/L)</content> Albumin 3.5-5.0 <content [facility] [Mass/volume] in styleCode="Bold"> [facility]reje hs Serum or Plasma Albumin Medical </content>4.1 Center G/DL<content styleCode="Italic s"> (3.5-5.0 G/DL)</content> Bilirubin.total 0.2-1.3 <content [facility] [Mass/volume] in styleCode="Bold"> [facility]re[facility] hs Serum or Plasma Bilirubin Total Medical </content>0.5 Center MG/DL<content styleCode="Italic s"> (0.2-1.3 MG/DL)</content> ID Date Data Source Liver 01/22/2018 12:30:00 PM EDT [facility] Profile.[id number] Name Value Range Interpretation Description Data Sup porting Code Source(s) Document(s ) Alanine 7-50 <content [facility] aminotransferase styleCode="Bold"> Dereje hs [Enzymatic Alanine Medical activity/volume] Aminotransferase Center in Serum or Plasma (ALT) </content>12 IU/L<content styleCode="Italic s"> (7-50 IU/L)</content> Aspartate 17-59 <content [facility] aminotransferase styleCode="Bold"> [facility]reje hs [Enzymatic Aspartate Medical activity/volume] Aminotransferase Center in Serum or Plasma (AST) </content>56 IU/L<content styleCode="Italic s"> (17-59 IU/L)</content> Albumin 3.5-5.0 <content [facility] [Mass/volume] in styleCode="Bold"> Dereje hs Serum or Plasma Albumin Medical </content>4.0 Center G/DL<content styleCode="Italic s"> (3.5-5.0 G/DL)</content> Alkaline 38-126 <content [facility] phosphatase styleCode="Bold"> Marcela [Enzymatic Alkaline Medical activity/volume] Phosphatase (ALP) Cente r in Serum or Plasma </content>60 IU/L<content styleCode="Italic s"> (38-126 IU/L)</content> Bilirubin.total 0.2-1.3 <content [facility] [Mass/volume] in styleCode="Bold"> Dereje hs Serum or Plasma Bilirubin Total Medical </content>0.8 Center MG/DL<content styleCode="Italic s"> (0.2-1.3 MG/DL)</content> ID Date Data Source LIPID.[id number] 01/22/2018 12:30:00 PM EDT [facility] Name Value Range Interpretation Description Data Sup porting Code Source(s) Document(s ) Triglyceride < 150 Above high normal <content Saint [Mass/volume] in styleCode="[facility] Serum or Plasma d">Triglycerid [facility] </content>235 MG/DL H<content styleCode="Karal lics"> (< 150 MG/DL)</conten t> Cholesterol -<200 Above high normal <content Saint [Mass/volume] in styleCode="[facility] Serum or Plasma d">Cholesterol Medical </content>417 Center MG/DL H<content styleCode="Karla lics"> (-<200 MG/DL)</conten t> UNK > 60 Below low normal <content Saint styleCode="Farnaz Marcela d">HDL- Medical Cholesterol Center </content>28 MG/DL L<content styleCode="Karla lics"> (> 60 MG/DL)</conten t> UNK < 100 <content Saint styleCode="Farnaz Marcela d">LDL-Cholest Medical maggie Center </content>342 MG/DL<content styleCode="Karla lics"> (< 100 MG/DL)</conten t> ID Date Data Source HematologyRou.[id number] 01/22/2018 12:30:00 PM EDT [facility] 0400 Name Value Range Interpretation Description Data Sup porting Code Source(s) Document(s ) Leukocytes 4.4-11.0 <content Saint [#/volume] in styleCode="Bold Marcela Blood by ">White Blood Medical Automated count Cell Count Center </content>7.96 KCUMM<content styleCode="Ital ics"> (4.4-11.0 KCUMM)</content > Hematocrit 41.0-53. Below low normal <content Saint [Volume 0 styleCode="Bold Marcela Fraction] of ">Hematocrit Medical Blood by </content>33.9 Center Automated count % L<content styleCode="Ital ics"> (41.0-53.0 %)</content> Erythrocytes 4.4-5.9 Below low normal <content Saint [#/volume] in styleCode="Bold Marcela Blood by ">Red Blood Medical Automated count Cell Count Center </content>3.98 MCUMM L<content styleCode="Ital ics"> (4.4-5.9 MCUMM)</content > Hemoglobin 13.5-17. Below low normal <content [facility] [Mass/volume] in 5 styleCode="Bold Marcela Blood ">Hemoglobin Medical </content>12.2 Center G/DL L<content styleCode="Ital ics"> (13.5-17.5 G/DL)</content> Erythrocyte mean 26.0-34. <content [facility] corpuscular 0 styleCode="Bold Marcela hemoglobin ">Mean Medical [Entitic mass] Corposcular Center by Automated Hemoglobin count </content>30.7 PG<content styleCode="Ital ics"> (26.0-34.0 PG)</content> Erythrocyte 11.5-14. <content [facility] distribution 5 styleCode="Bold Marcela width [Ratio] by ">Red Cell Medical Automated count Distribution Center Width </content>13.5 %<content styleCode="Ital ics"> (11.5-14.5 %)</content> Erythrocyte mean 80.0-100 <content [facility] corpuscular .0 styleCode="Bold Marcela volume [Entitic ">Mean Medical volume] by Corpuscular Center Automated count Volume </content>85.2 FL<content styleCode="Ital ics"> (80.0-100.0 FL)</content> Erythrocyte mean 32.0-37. <content [facility] corpuscular 0 styleCode="Bold Marcela hemoglobin ">Mean Corpus. Medical concentration Hgb Center [Mass/volume] by Concentration Automated count (MCHC) </content>36.0 G/DL<content styleCode="Ital ics"> (32.0-37.0 G/DL)</content> UNK 0 <content [facility] styleCode="Bold Marcela ">Nucleated Red Medical Blood Cell Center </content>0.0 /100<content styleCode="Ital ics"> (0 /100)</content> UNK 0.0 <content [facility] styleCode="Bold Marcela ">Nucleated Red Medical Blood Cell Center Count </content>0.00 KCUMM<content styleCode="Ital ics"> (0.0 KCUMM)</content > Platelets 130-400 <content Saint [#/volume] in styleCode="Bold Marcela Blood by ">Platelet Medical Automated count Count Center </content>323 KCUMM<content styleCode="Ital ics"> (130-400 KCUMM)</content > Platelet mean 8.0-11.0 <content [facility] volume [Entitic styleCode="Bold Marcela volume] in Blood ">Mean Platelet Medical by Automated Volume Center count </content>9.4 FL<content styleCode="Ital ics"> (8.0-11.0 FL)</content> ID Date Data Source GFR(Creatinine).[id number] 01/22/2018 12:30:00 PM EDT [facility] 0-0400 Name Value Range Interpretation Code Description Data Jazzmine rce(s) Supporting Document(s ) UNK > 60 <content Saint [facility] styleCode="Bold"> Medical Cent er EGFR </content>132 GFR<content styleCode="Italic s"> (> 60 GFR)</content> ID Date Data Source CHMROUTINECCDA.[id number] 01/22/2018 12:30:00 PM EDT [facility] -0400 Name Value Range Interpretation Description Data Sup porting Code Source(s) Document(s ) UNK 2.3-3.5 <content [facility] styleCode="Bold Medical ">Globulin Center </content>3.4 G/DL<content styleCode="Ital ics"> (2.3-3.5 G/DL)</content> UNK >= 1.0 <content [facility] styleCode="Bold Medical ">AG Ratio Center </content>1.2 NM<content styleCode="Ital ics"> (>= 1.0 NM)</content> Protein 6.3-8.2 <content [facility] [Mass/volum styleCode="Bold Medical e] in Serum ">Total Protein Center or Plasma </content>7.4 G/DL<content styleCode="Ital ics"> (6.3-8.2 G/DL)</content> ID Date Data Source [facility].[id number] 01/22/2018 12:30:00 PM EDT [facility] Center Name Value Range Interpretation Description Data Sup porting Code Source(s) Document(s ) Chloride 98-107 <content Saint [Moles/volume] in styleCode="Bold"> [facility] Serum or Plasma Chloride Medical </content>101 Center MEQ/L<content styleCode="Italic s"> (98-107 MEQ/L)</content> Sodium 137-145 Below low <content Saint [Moles/volume] in normal styleCode="Bold"> [facility] Serum or Plasma Sodium Medical </content>136 Center MEQ/L L<content styleCode="Italic s"> (137-145 MEQ/L)</content> Potassium 3.5-5.3 <content [facility] [Moles/volume] in styleCode="Bold"> [facility] Serum or Plasma Potassium Medical </content>4.5 Center MEQ/L<content styleCode="Italic s"> (3.5-5.3 MEQ/L)</content> Carbon dioxide, 22-30 <content Saint total styleCode="Bold"> Marcela [Moles/volume] in Carbon Dioxide Medical Serum or Plasma </content>27 Center MEQ/L<content styleCode="Italic s"> (22-30 MEQ/L)</content> UNK 9-20 <content [facility] styleCode="Bold"> Marcela BUN </content>14 Medical MG/DL<content Center styleCode="Italic s"> (9-20 MG/DL)</content> Creatinine 0.5-1.3 <content [facility] [Mass/volume] in styleCode="Bold"> Dereje hs Serum or Plasma Creatinine Medical </content>0.8 Center MG/DL<content styleCode="Italic s"> (0.5-1.3 MG/DL)</content> Glucose 74-106 <content [facility] [Mass/volume] in styleCode="Bold"> Dereje hs Serum or Plasma Glucose Medical </content>88 Center MG/DL<content styleCode="Italic s"> (74-106 MG/DL)</content> UNK > 60 <content [facility] styleCode="Bold"> Marcela EGFR Medical </content>132 Center GFR<content styleCode="Italic s"> (> 60 GFR)</content> Aspartate 17-59 <content [facility] aminotransferase styleCode="Bold"> Dereje hs [Enzymatic Aspartate Medical activity/volume] Aminotransferase Center in Serum or Plasma (AST) </content>56 IU/L<content styleCode="Italic s"> (17-59 IU/L)</content> Calcium 8.4-10. <content [facility] [Mass/volume] in 2 styleCode="Bold"> Dereje hs Serum or Plasma Calcium Medical </content>9.7 Center MG/DL<content styleCode="Italic s"> (8.4-10.2 MG/DL)</content> Alanine 7-50 <content [facility] aminotransferase styleCode="Bold"> Dereje hs [Enzymatic Alanine Medical activity/volume] Aminotransferase Center in Serum or Plasma (ALT) </content>12 IU/L<content styleCode="Italic s"> (7-50 IU/L)</content> Bilirubin.total 0.2-1.3 <content [facility] [Mass/volume] in styleCode="Bold"> Dereje hs Serum or Plasma Bilirubin Total Medical </content>0.8 Center MG/DL<content styleCode="Italic s"> (0.2-1.3 MG/DL)</content> Alkaline 38-126 <content Saint phosphatase styleCode="Bold"> [facility] [Enzymatic Alkaline Medical activity/volume] Phosphatase (ALP) Cente r in Serum or Plasma </content>60 IU/L<content styleCode="Italic s"> (38-126 IU/L)</content> Albumin 3.5-5.0 <content [facility] [Mass/volume] in styleCode="Bold"> Dereje hs Serum or Plasma Albumin Medical </content>4.0 Center G/DL<content styleCode="Italic s"> (3.5-5.0 G/DL)</content> Procedure Social History Code Duration Value Status Description Data Source(s ) Caffeine Use 02/10/2020 completed NEXTGEN ([facility] nt Details 12:00:[address] [facility]) 02/10/2020 Moderate completed Moderate NEXTGEN ([facility] 12:00:00 [facility]10-[facility] cig[facility]day[facility] Cente r) cigs/day) Alcohol Use 02/10/2020 vodka 4 drinks completed vodka 4 drinks NEXTG EN ([facility] Details 12:00:[address] [facility]) Smoking 02/10/2020 Unknown if ever completed Unknown if ever NEXT GEN ([facility] 12:00:[address] [facility]) Smoking Unknown if ever completed Unknown if ever To [facility] smoked smoked Medical Center Smoking Former smoker completed Former smoker [facility] on Vital Signs ID Date Data Source UNK Name Value Range Interpretation Code Description Data Source(s) Oxygen saturation 98 % 98 % NEXTGEN ([facility] in Arterial blood [facility] by Pulse oximetry Center) Body mass index 27.79 kg/m2 Overweight 27.79 kg/m2 NEXTGEN ([facility] (BMI) [Ratio] [facility]) Respiratory rate 17 /min 17 /min [facility]) Body temperature 37.06 Adelina 37.06 Adelina [facility] ([facility]) Heart rate 106 /min 106 /min [facility] ([facility]) Diastolic blood 81 mm[Hg] 81 mm[Hg] NEXTGEN ( [facility]) Systolic blood 116 mm[Hg] 116 mm[Hg] NEXTREGENCY MERIDIAN (S aint pressure [facility]) Body weight 75.750 kg 75.750 kg NEXTREGENCY [facility]IAN ([facility] Body height 165.10 cm 165.10 cm [facility]) Oxygen saturation 99 % 99 % NEXTREGENCY MERIDIAN ([facility] in Arterial [facility] by Pulse oximetry Center) Body mass index 27.29 kg/m2 Overweight 27.29 kg/m2 NEXTGEN ([facility] (BMI) [Ratio] [facility]) Respiratory rate 18 /min 18 /min NEXTREGENCY MERIDIAN ([facility]) Body temperature 37.06 Adelina 37.06 Adelina [facility] ([facility]) Heart rate 91 /min 91 /min [facility] ([facility]) Diastolic blood 76 mm[Hg] 76 mm[Hg] NEXTREGENCY MERIDIAN ( [facility] pressure [facility]) Systolic blood 119 mm[Hg] 119 mm[Hg] NEXTREGENCY MERIDIAN (S nt pressure [facility]) Body weight 74.389 kg 74.389 kg NEXTREGENCY MERIDIAN ([facility]) Body height 165.10 cm 165.10 cm [facility] ([facility]) Body weight 63.957 kg 63.957 kg [facility] ([facility]) Respiratory rate 18 /min 18 /min [facility] ([facility]) Body temperature 36.78 Adelina 36.78 Adelina NEXTREGENCY MERIDIAN ([facility]) Heart rate 88 /min 88 /min [facility] ([facility]) Diastolic blood 68 mm[Hg] 68 mm[Hg] [facility]ENC[facility] ( [facility] Systolic blood 109 mm[Hg] 109 mm[Hg] NEXTREGENCY MERIDIAN (S aint pressure [facility]) Body height 165.10 cm 165.10 cm [facility] ([facility]) Diastolic blood 54 {} Normal (applies to 54 {} [place] non-numeric results) Coun [facility] Systolic blood 80 {} Normal (applies to 80 {} [place] pressure non-numeric results) [facility] First Respiration 17.0000 {} Normal (applies to 17.0000 {} [place] rate Set non-numeric results) [facility] Heart rate 103.0000 {} Normal (applies to 103.0000 {} [place] non-numeric results) [facility] Body temperature 97.2000 {} Normal (applies to 97.2000 {} [place] non-numeric results) [facility] wt - obtain Normal (applies to {} [facility] non-numeric results) [facility] weight - kg 56.0000 {} Normal (applies to 56.0000 {} [facility] [place] non-numeric results) [facility] height - cm Normal (applies to {} [facility] [place] non-numeric results) [facility] Diastolic blood 79 {} Normal (applies to 79 {} [place] pressure non-numeric results) [facility] Systolic blood 102 {} Normal (applies to 102 {} [place] pressure non-numeric results) [facility] First Respiration 18.0000 {} Normal (applies to 18.0000 {} [place] rate Set non-numeric results) [facility] Heart rate 69.0000 {} Normal (applies to 69.0000 {} [place] non-numeric results) [facility] Body temperature 97.6000 {} Normal (applies to 97.6000 {} [place] non-numeric results) [facility] wt - obtain Normal (applies to {} [facility] [place] non-numeric results) [facility] weight - kg 58.6000 {} Normal (applies to 58.6000 {} [facility] non-numeric results) [facility] height - cm Normal (applies to {} [facility] [place] non-numeric results) [facility] Diastolic blood 73 {} Normal (applies to 73 {} [place] pressure non-numeric results) [facility] Systolic blood 107 {} Normal (applies to 107 {} [place] pressure non-numeric results) [facility] First Respiration 19.0000 {} Normal (applies to 19.0000 {} [place] rate Set non-numeric results) [facility] Heart rate 70.0000 {} Normal (applies to 70.0000 {} [place] non-numeric results) [facility] Body temperature 98.9000 {} Normal (applies to 98.9000 {} [place] non-numeric results) [facility] weight - kg 65.0000 {} Normal (applies to 65.0000 {} [facility] [place] non-numeric results) [facility] wt - obtain Normal (applies to {} [facility] non-numeric results) [facility] Diastolic blood 68 {} Normal (applies to 68 {} [place] pressure non-numeric results) [facility] Systolic blood 100 {} Normal (applies to 100 {} [place] pressure non-numeric results) [facility] First Respiration 18.0000 {} Normal (applies to 18.0000 {} [place] rate Set non-numeric results) [facility] Heart rate 82.0000 {} Normal (applies to 82.0000 {} [place] non-numeric results) [facility] Body temperature 98.1000 {} Normal (applies to 98.1000 {} [place] non-numeric results) [facility] wt - obtain Normal (applies to {} [facility] [place] non-numeric results) [facility] weight - kg 64.5000 {} Normal (applies to 64.5000 {} [facility] non-numeric results) [facility] height - cm Normal (applies to {} [place] non-numeric results) [facility] height - cm Normal (applies to {} [place] non-numeric results) [facility] Diastolic blood 79 {} Normal (applies to 79 {} [place] pressure non-numeric results) [facility] Systolic blood 119 {} Normal (applies to 119 {} [place] pressure non-numeric results) [facility] First Respiration 18.0000 {} Normal (applies to 18.0000 {} [place] rate Set non-numeric results) [facility] Heart rate 89.0000 {} Normal (applies to 89.0000 {} [place] non-numeric results) [facility] Body temperature 97.1000 {} Normal (applies to 97.1000 {} [place] non-numeric results) [facility] wt - obtain Normal (applies to {} [place] non-numeric results) [facility] weight - kg 68.4000 {} Normal (applies to 68.4000 {} [place] non-numeric results) [facility] height - cm Normal (applies to {} [place] non-numeric results) [facility] Oxygen saturation 99 % 99 % NEXTGEN ([facility] in Arterial blood [facility] by Pulse oximetry Center) Body mass index 27.29 kg/m2 Overweight 27.29 kg/m2 NEXTGEN ([facility] (BMI) [Ratio] [facility]) Respiratory rate 18 /min 18 /min NEXTREGENCY MERIDIAN ([facility]) Body temperature 36.78 Adelina 36.78 Adelina NEXTREGENCY MERIDIAN ([facility]) Heart rate 74 /min 74 /min NEXTREGENCY MERIDIAN ([facility]) Diastolic blood 61 mm[Hg] 61 mm[Hg] NEXTREGENCY MERIDIAN ( [facility] pressure [facility]) Systolic blood 104 mm[Hg] 104 mm[Hg] NEXTREGENCY MERIDIAN (S nt pressure [facility]) Body weight 74.389 kg 74.389 kg NEXTREGENCY MERIDIAN ([facility]) Body height 165.10 cm 165.10 cm NEXTREGENCY MERIDIAN ([facility]) Body height 165.10 cm 165.10 cm NEXTREGENCY [facility]IDIAN ([facility]) Body weight 76.204 kg 76.204 kg [facility] ([facility]) Systolic blood 115 mm[Hg] 115 mm[Hg] NEXTREGENCY [facility]IDIAN ([facility]) Diastolic blood 71 mm[Hg] 71 mm[Hg] [facility] Heart rate 73 /min 73 /min [facility] ([facility]) Body temperature 36.39 Adelina 36.39 Adelina NEXTREGENCY MERIDIAN ([facility]) Respiratory rate 17 /min 17 /min [facility] ([facility]) Body mass index 27.96 kg/m2 Overweight 27.96 kg/m2 NEXTGEN ([facility] (BMI) [Ratio] [facility]) Oxygen saturation 100 % 100 % NEXTGEN ([facility] in Arterial blood [facility] by Pulse oximetry Center) Body height 165.10 cm 165.10 cm NEXTREGENCY MERIDIAN ([facility]) Body weight 75.750 kg 75.750 kg NEXTGEN ([facility]) Systolic blood 118 mm[Hg] 118 mm[Hg] NEXTGEN ([facility] pressure [facility]) Diastolic blood 78 mm[Hg] 78 mm[Hg] NEXTGEN ( [facility]) Heart rate 82 /min 82 /min NEXTREGENCY MERIDIAN ([facility]) Body temperature 37.06 Adelina 37.06 Adelina [facility] ([facility]) Respiratory rate 18 /min 18 /min [facility] ([facility]) Body mass index 27.79 kg/m2 Overweight 27.79 kg/m2 NEXTGEN ([facility] (BMI) [Ratio] [facility]) Oxygen saturation 98 % 98 % NEXTREGENCY MERIDIAN ([facility] in Arterial [facility] by Pulse oximetry Center) Heart rate 75 /min 75 /min [facility] ([facility]) Body temperature 36.56 Adelina 36.56 Adelina [facility] ([facility]) Respiratory rate 18 /min 18 /min [facility] ([facility]) Body mass index 27.46 kg/m2 Overweight 27.46 kg/m2 NEXTGEN ([facility] (BMI) [Ratio] [facility]) Oxygen saturation 100 % 100 % NEXTGEN ([facility] in Arterial blood [facility] by Pulse oximetry Center) Body height 165.10 cm 165.10 cm NEXTGEN ([facility]) Body weight 74.843 kg 74.843 kg NEXTREGENCY MERIDIAN ([facility]) Systolic blood 128 mm[Hg] 128 mm[Hg] NEXTREGENCY MERIDIAN (S aint pressure [facility]) Diastolic blood 88 mm[Hg] 88 mm[Hg] NEXTREGENCY MERIDIAN ( [facility]) Body height 165.10 cm 165.10 cm NEXTREGENCY MERIDIAN ([facility]) Body weight 59.693 kg 59.693 kg NEXTGEN (To t [facility]) Systolic blood 117 mm[Hg] 117 mm[Hg] NEXTGEN (S aint pressure [facility]) Diastolic blood 74 mm[Hg] 74 mm[Hg] [facility]) Heart rate 87 /min 87 /min [facility] Body temperature 36.94 Adelina 36.94 Adelina [facility] Respiratory rate 18 /min 18 /min [facility]) Body mass index 21.90 kg/m2 21.90 kg/m2 [facility] ([facility] (BMI) [Ratio] [facility] Oxygen saturation 97 % 97 % [facility] ([facility] in Arterial blood [facility] by Pulse oximetry Center) No Vital Sign [place] information exists [facility] for this episode. Care Co rporation Patient Treatment Plan of Care Planned Activity Planned Date Details Description Data Source (s) ferrous sulfate 325 MG Oral 02/10/2020 NEXTGEN ([facility] Tablet 12:00:00 AM [facility]) atorvastatin 40 MG Oral 02/10/2020 NEXT GEN ([facility] Tablet 12:00:00 AM [facility]) 0.9% NaCl IV 02/08/2020 [facility] nty 01:48:59 PM [facility] Gastroview PO Contra 02/08/2020 [facility] 01:48:59 PM [facility] Acetaminophen 500 MG Oral 01/18/2020 NE XTGEN ([facility] Capsule [Mapap] 12:00:00 AM [facility]) chlorhexidine gluconate 1.2 01/18/2020 NEXTGEN ([facility] MG/ML Mouthwash [Peridex] 12:00:[address] [facility]) POLYETHYLENE GLYCOL 3350 01/18/2020 NEX TGEN ([facility] 142 MG/ML Oral Solution 12:00:00 AM [facility] [Miralax] Center) Guaifenesin 20 MG/ML Oral 10/26/2019 NE XTGEN ([facility] Solution 12:00:00 AM [facility]) Azithromycin 250 MG Oral 10/26/2019 NEX TGEN ([facility] Tablet 12:00:00 AM [facility]) Amoxicillin 120 MG/ML / 09/04/2019 NEXT GEN ([facility] Clavulanate 8.58 MG/ML Oral 12:00:00 AM [facility]) Ubaldo Floresadry 06/25/2019 [facility] 01:59:02 PM [facility] 0.9% NaCl IV 06/25/2019 [facility] nty 01:42:06 PM [facility] MORphine Sulfate Inj 06/05/2019 [facility] 02:31:32 PM [facility] Fluconazole (Difluca 06/05/2019 [facility] 01:57:27 PM [facility] Health Care [facility] 0.9% NaCl IV 06/05/2019 [facility] nty 01:22:28 PM [facility] 0.9% NaCl IV 06/05/2019 [facility] nty 10:23:49 AM [facility] Naproxen sodium 550 MG Oral 04/10/2019 NEXTGEN ([facility] Tablet 12:00:00 AM [facility]) Acyclovir 400 MG Oral 02/11/2019 NEXTGE N ([facility] Tablet 12:00:00 AM [facility]) chlorhexidine gluconate 1.2 01/30/2019 NEXTGEN ([facility] MG/ML Mouthwash [Peridex] 12:00:[address] [facility]) Fluconazole 100 MG Oral 01/30/2019 NEXT GEN ([facility] Tablet 12:00:00 AM [facility]) Sulfamethoxazole 800 MG / 01/30/2019 NE XTGEN ([facility] Trimethoprim 160 MG Oral 12:00:00 AM [facility] [Bactrim] Center) Mefloquine Hydrochloride 01/14/2019 NEX TGEN ([facility] 250 MG Oral Tablet 12:00:00 AM [facility]) chlorhexidine gluconate 1.2 12/31/2018 NEXTGEN ([facility] MG/ML Mouthwash [Peridex] 12:00:[address] [facility]) Minocycline 100 MG Oral 12/30/2018 NEXT GEN ([facility] Capsule 12:00:00 AM [facility]) atorvastatin 40 MG Oral 12/03/2018 NEXT GEN ([facility] Tablet 12:00:00 AM [facility]) atorvastatin 40 MG Oral 11/03/2018 NEXT GEN ([facility] Tablet 12:00:00 AM [facility]) chlorhexidine gluconate 1.2 10/21/2018 NEXTGEN ([facility] MG/ML Mouthwash [Peridex] 12:00:[address] [facility]) Minocycline 100 MG Oral 10/21/2018 NEXT GEN ([facility] Capsule 12:00:00 AM [facility]) Minocycline 100 MG Oral 10/09/2018 NEXT GEN ([facility] Capsule 12:00:00 AM [facility]) Tetracycline 250 MG Oral 10/08/2018 NEX TGEN ([facility] Capsule 12:00:00 AM [facility]) Thiamine 100 MG Oral Tablet 09/04/2018 NEXTGEN ([facility] 12:00:00 AM [facility]) multivitamin tablet 09/04/2018 NEXTGEN ([facility] 12:00:00 AM [facility]) Folic Acid 1 MG Oral Tablet 09/04/2018 NEXTGEN ([facility] 12:00:00 AM [facility]) Sulfamethoxazole 800 MG / 09/04/2018 NE XTGEN ([facility] Trimethoprim 160 MG Oral 12:00:00 AM [facility] [Bactri] [place]) Naproxen sodium 550 MG Oral 07/25/2018 NEXTGEN ([facility] Tablet 12:00:00 AM [facility]) Metronidazole 500 MG Oral 07/25/2018 NE XTGEN ([facility] Tablet 12:00:00 AM [facility]) Mirtazapine 15 MG Oral 06/26/2018 NEXTG EN ([facility] Tablet 12:00:00 AM [facility]) atorvastatin 40 MG Oral 05/06/2018 NEXT GEN ([facility] Tablet 12:00:00 AM [facility]) Mupirocin 0.02 MG/MG 03/13/2018 NEXTGEN ([facility] Topical Ointment 12:00:[address] [facility]) Hydroxyzine Hydrochloride 03/07/2018 NE XTGEN ([facility] 25 MG Oral Tablet 12:00:[address] [facility]) Naproxen sodium 550 MG Oral 02/26/2018 NEXTGEN ([facility] Tablet 12:00:00 AM [facility]) POLYETHYLENE GLYCOL 3350 02/13/2018 NEX TGEN ([facility] 142 MG/ML Oral Solution 12:00:00 AM [facility] Bisacodyl 5 MG Delayed 02/13/2018 NEXTG EN ([facility] Release Oral Tablet 12:00:00 AM EDT [facility] [Dulcolax] Center) Trazodone Hydrochloride 50 02/05/2018 N EXTGEN ([facility] MG Oral Tablet 12:00:00 AM EDT [facility]) ferrous sulfate 325 MG Oral 11/05/2017 NEXTGEN ([facility] Tablet 12:00:00 AM [facility]) multivitamin tablet 11/05/2017 NEXTGEN ([facility] 12:00:00 AM [facility]) Thiamine 100 MG Oral Tablet 11/05/2017 NEXTGEN ([facility] 12:00:00 AM [facility]) Folic Acid 1 MG Oral Tablet 11/05/2017 NEXTGEN ([facility] 12:00:00 AM [facility]) Hydrocortisone 25 MG/ML 07/24/2017 NEXT GEN ([facility] Topical Cream 12:00:00 AM [facility]) Acetaminophen 500 MG Oral 06/26/2017 NE XTGEN ([facility] Capsule 12:00:00 AM [facility])
[2020-05-04] MEDS ORDERED: SODIUM CHLORIDE 1,000 ML IV STA (10:23)
[2020-05-04] MEDS ORDERED: ONDANSETRON 4 MG/2 ML VIAL IVPB ONE (10:23)
[2020-05-04 10:37] LABS: BASO % 0.5 % (0-2.0); EOS % 1.1 % (0-4.5); HEMATOCRIT 39.3 % (35.4-49); HEMOGLOBIN 13.9 GM/dL (11.7-16.9); MCH 31.4 pg (25.7-33.7); MCHC 35.4 g/dl (32.0-35.9); MEAN CELL VOLUME 88.7 fl (80-96); MEAN PLT VOLUME 7.6 fl (7.5-11.1); MONO % 8.4 % (3.8-10.2); PLATELET COUNT 285 K/MM3 (134-434); RBC 4.43 M/mm3 (4.00-5.60); RDW 14.3 % (11.9-15.9); WHITE BLOOD COUNT 7.7 K/mm3 (4.0-10.0)
[2020-05-04] MEDS ORDERED: FAMOTIDINE 20 MG/50 ML IVPB 20 MG/50 ML MG IVPB ONE ×2 (10:41→10:45)
--- NOTE | 2020-05-04 11:16 | PDOC ---
Documentation entered by Chepe Holt SCRIBE, acting as scribe for Ronald Chong MD. Ronald Chong MD: This documentation has been prepared by the Jonathon limon Alexis, SCRIBE, under my direction and personally reviewed by me in its entirety. I confirm that the documentation accurately reflects all work, treatment, procedures, and medical decision making performed by me. History of Present Illness - General Chief Complaint: Pain Stated Complaint: ABD/CHEST PAIN, HAS FEEDING TUBE Time Seen by Provider: 05/04/20 09:31 History Source: Patient Exam Limitations: No Limitations - History of Present Illness Initial Comments: 05/04/20 10:25 The patient is a 50 year old male with a significant past medical history of depression and current jaw cancer (stage 1, s/p chemotherapy, s/p feeding tube August 2019) who presents to the emergency department for evaluation of chest and abdominal pain that began three days ago. The patient reports his chest pain feels like severe heartburn, like the food is coming up every time he feeds himself and when he swallows his saliva. Pt also notes that every time he does tube feeds, the food comes up out of his mouth. He endorses nausea and abdominal distention as well. No constipation. Last BM this morning, normal. The patient denies back pain, cough, and shortness of breath. Denies fever, chills. Denies any other symptoms. Allergies: NKA Social Hx: The patient has a history of alcohol abuse and was at [facility] in 2018. The patient reports currently smoking 10 cigarettes per day. Denies illicit drug use. 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 Montilla Past History - Medical History Allergies/Adverse Reactions: Allergies Allergy/AdvReac Type Severity Reaction Status Date / Time No Known Allergies Allergy Verified 05/04/20 09:13 Home Medications: Ambulatory Orders Multivitamin [Poly-Vitamin] 1 each PO DAILY 07/02/18 Thiamine HCl [Vitamin B1] 100 mg PO DAILY 07/02/18 Esomeprazole Magnesium [Nexium 24Hr] 20 mg PO DAILY #30 capsule. 05/04/20 Anemia: No Asthma: No Cancer: Yes Cardiac Disorders: No CVA: No COPD: No CHF: No Dementia: No Diabetes: No GI Disorders: No Disorders: No HTN: No Hypercholesterolemia: Yes Kidney Stones: No Liver Disease: No Seizures: No Thyroid Disease: No - Surgical History Abdominal Surgery: Yes (feeding tube) Appendectomy: No Cardiac Surgery: No Cholecystectomy: No Lung Surgery: No Neurologic Surgery: No Orthopedic Surgery: No - Reproductive History Testicular Surgery: No - Psycho-Social/Smoking History Smoking History: Never smoked Have you smoked in the past 12 months: Yes Number of Cigarettes Smoked Daily: 10 Information on smoking cessation initiated: No 'Breaking Loose' booklet given: 07/02/18 - Substance Abuse Hx (Audit-C & DAST Scrn) How often the patient has a drink containing alcohol: Never Score: In Men: 4 or > Positive; In Women: 3 or > Positive: 0 Screen Result (Pos requires Nsg. Audit-10AR): Negative In the last yr the pt used illegal drug/Rx for NonMed reason: No Score: Yes response is considered Positive: 0 Screen Result (Positive result requires Nsg. DAST-10): Negative Review of Systems - Review of Systems Able to Perform ROS?: Yes Comments:: 05/04/20 10:26 "GENERAL/CONSTITUTIONAL: No fever or chills. No weakness. HEAD, EYES, EARS, NOSE AND THROAT: No change in vision. No ear pain or discharge. No sore throat. CARDIOVASCULAR: + chest pain, no shortness of breath, no loss of consciousness RESPIRATORY: No cough, wheezing, or hemoptysis. GASTROINTESTINAL: + abdominal pain, + nausea, + vomiting, no diarrhea or constipation. GENITOURINARY: No dysuria, frequency, or change in urination. MUSCULOSKELETAL: No joint or muscle swelling or pain. No neck or back pain. SKIN: No rash NEUROLOGIC: No vertigo, no change in strength/sensation. ENDOCRINE: No increased thirst. No abnormal weight change. HEMATOLOGIC/LYMPHATIC: No anemia, easy bleeding, or history of blood clots. ALLERGIC/IMMUNOLOGIC: No hives or skin allergy." All Other Systems: Reviewed and Negative *Physical Exam - Vital Signs Last Vital Signs Temp Pulse Resp BP Pulse Ox 98.5 F 122 H 19 119/74 99 05/04/20 09:11 05/04/20 09:11 05/04/20 09:11 05/04/20 09:11 05/04/20 09:11 - Physical Exam 05/04/20 09:36 "GENERAL: Awake, alert, and fully oriented, in no acute distress. HEAD: No signs of trauma EYES: PERRLA, EOMI, sclera anicteric, conjunctiva clear ENT: Auricles normal inspection, hearing grossly normal, nares patent, oropharynx clear without exudates. Moist mucosa NECK: Nontender, no stepoffs, Normal ROM, supple, no lymphadenopathy, JVD, or masses LUNGS: Breath sounds equal, clear to auscultation bilaterally. No wheezes, and no crackles HEART: Regular rate and rhythm, normal S1 and S2, no murmurs, rubs or gallops ABDOMEN: + distended, G-tube in place, mild diffuse TTP EXTREMITIES: Normal range of motion, no edema. No clubbing or cyanosis. No cords, erythema, or tenderness NEUROLOGICAL: Cranial nerves II through XII intact. 5/5 strength and sensation in all extremities, Normal speech, normal gait, normal cerebellar function SKIN: Warm, Dry, normal turgor, no rashes or lesions noted." ED Treatment Course - LABORATORY CBC & Chemistry Diagram: 05/04/20 10:25 05/04/20 10:11 Medical Decision Making - Medical Decision Making 05/04/20 11:28 50 M with chest and abdominal pain. Distended on exam. - Labs - CTAP - GI cocktail 05/04/20 14:35 CT and labs unremarkable Pt reassessed - states his symptoms are improved but still with some residual heartburn Will trial maalox 05/04/20 15:54 Pt reassessed - now feels much better. Tolerating PO without nausea or vomiting Pt is well appearing, with normal vitals. Clinically stable for DC at this time. I discussed the physical exam findings, ancillary test results and final diagn oses with the patient. I answered all of the patient's questions. The patient was satisfied with the care received and felt comfortable with the discharge plan and treatment plan. The patient agrees to follow up with the primary care physician within 24-72 hours. Discharge - Discharge Information Problems reviewed: Yes Clinical Impression/Diagnosis: GERD (gastroesophageal reflux disease), Hiatal hernia, Nausea Disposition: HOME - Additional Discharge Information Prescriptions: Esomeprazole Magnesium [Nexium 24Hr] 20 mg PO DAILY #30 capsule.dr - Follow up/Referral Referrals: Adrian Montilla [Primary Care Provider] - Luis E Moise MD [Staff Physician] - - Patient Discharge Instructions Patient Printed Discharge Instructions: DI for Gastroesophageal Reflux Disease (GERD), DI for Hiatal Hernia Additional Instructions: Take nexium daily to treat your heartburn. Follow up with a educational interpreter within 1 week (call the number provided to make an appointment with Dr. Moise). If you experience worsening pain, nausea, vomiting, or any other concerning symptoms, return to the ER immediately. - Post Discharge Activity Vital Signs - Vital Signs Pulse Rate: 90
[2020-05-04 11:17] LABS: ALBUMIN 3.6 g/dl (3.4-5.0); ALK PHOS 79 U/L (45-117); ANION GAP 5 MMOL/L (8-16); BILIRUBIN,TOTAL 0.4 mg/dL (0.2-1); BLOOD UREA NITROGEN 17.9 mg/dL (7-18); CALCIUM 9.4 mg/dL (8.5-10.1); CHLORIDE 99 mmol/L (98-107); CO2 31 mmol/L (21-32); CREATININE 0.9 mg/dL (0.55-1.3); GLUCOSE,RANDOM 131 mg/dL (74-106); LIPASE 122 U/L (73-393); POTASSIUM 3.9 mmol/L (3.5-5.1); SGOT/AST 16 U/L (15-37); SGPT/ALT 23 U/L (13-61); SODIUM 135 mmol/L (136-145); TOT PROT 7.5 g/dl (6.4-8.2)
[2020-05-04] MEDS ORDERED: MAG HYDROX/AL HYDROX/SIMETH 30 ML UNIT-DOSE CUP PO ONE (14:15)
[2020-05-04] MEDS ORDERED: MAG HYDROX/AL HYDROX/SIMETH 30 ML UNIT-DOSE CUP ONE (14:56)
[2020-05-04 15:52] VITALS: BP 125/81
[2020-05-04 16:01] VITALS: PULSE 90
--- NOTE | 2020-05-05 13:24 | EKG ---
Test Reason : Blood Pressure : / mmHG Vent. Rate : 119 BPM Atrial Rate : 119 BPM P-R Int : 126 ms QRS Dur : 068 ms QT Int : 302 ms P-R-T Axes : 065 072 070 degrees QTc Int : 424 ms SINUS TACHYCARDIA OTHERWISE NORMAL ECG WHEN COMPARED WITH ECG OF 11-DEC-2017 00:22, INVERTED T WAVES HAVE REPLACED NONSPECIFIC T WAVE ABNORMALITY IN INFERIOR LEADS NONSPECIFIC T WAVE ABNORMALITY, WORSE IN LATERAL LEADS Confirmed by ADY FLORES, LAVERNE ([id number]) on 05/05/2020 1:24:07 PM Referred By: Confirmed By:LAVERNE GARSIA MD
== END 2020-05-04 16:25 | disposition home or self-care (01) ==
LOC: JER 09:08
PROC: 3E033GC Introduction of Other Therapeutic Substance into Peripheral Vein, Percutaneous Approach (ICD-10-PCS; principal; 2020-05-04)
PROC: 3E0337Z Introduction of Electrolytic and Water Balance Substance into Peripheral Vein, Percutaneous Approach (ICD-10-PCS; 2020-05-04)
DX: K21.0 Gastro-esophageal reflux disease with esophagitis (principal); K44.9 Diaphragmatic hernia without obstruction or gangrene; R11.0 Nausea
CPT/HCPCS: 36415; 74177-TC; 80053; 82550; 83690; 84484; 85025; 93005; 93010; 99285-25; Q9967

== ENCOUNTER 2020-07-08 13:41 | Emergency (ER) | payer OTHER ==
[2020-07-08 13:49] VITALS: BMI 26.6
[2020-07-08] MEDS ORDERED: SODIUM CHLORIDE 0.9% 500 ML INFUS.BAG IV ONE (14:46)
[2020-07-08 16:11] LABS: BASO % 0.4 % (0-2.0); EOS % 0.1 % (0-4.5); HEMATOCRIT 41.6 % (35.4-49); HEMOGLOBIN 14.3 GM/dL (11.7-16.9); LYMPH % 12.1 % (8-40); MCH 30.7 pg (25.7-33.7); MCHC 34.4 g/dl (32.0-35.9); MEAN CELL VOLUME 89.1 fl (80-96); MEAN PLT VOLUME 7.5 fl (7.5-11.1); MONO % 8.8 % (3.8-10.2); NEUT % 78.6 % (42.8-82.8); PLATELET COUNT 286 K/MM3 (134-434); RBC 4.67 M/mm3 (4.00-5.60); RDW 14.8 % (11.9-15.9); WHITE BLOOD COUNT 13.5 K/mm3 (4.0-10.0)
[2020-07-08 16:26] LABS: INR 0.92 (0.83-1.09); PROTHROMBIN TIME (PATIENT) 11.4 SEC (9.7-13.0)
[2020-07-08 16:29] LABS: CHLORIDE 98 mmol/L (98-107); POTASSIUM 3.8 mmol/L (3.5-5.1); SODIUM 134 mmol/L (136-145)
[2020-07-08 16:31] LABS: ALBUMIN 3.4 g/dl (3.4-5.0); ANION GAP 9 MMOL/L (8-16); BLOOD UREA NITROGEN 22.5 mg/dL (7-18); CALCIUM 9.5 mg/dL (8.5-10.1); CO2 27 mmol/L (21-32)
[2020-07-08 16:32] LABS: GLUCOSE,RANDOM 83 mg/dL (74-106)
[2020-07-08 16:34] LABS: SGPT/ALT 30 U/L (13-61)
[2020-07-08 16:35] LABS: CREATININE 0.9 mg/dL (0.55-1.3); SGOT/AST 12 U/L (15-37)
[2020-07-08 16:36] LABS: BILIRUBIN,TOTAL 0.3 mg/dL (0.2-1); TOT PROT 6.7 g/dl (6.4-8.2)
[2020-07-08 16:37] LABS: ALK PHOS 84 U/L (45-117)
[2020-07-08 16:40] LABS: PLATELET ESTIMATE ADEQUATE
[2020-07-08 17:14] VITALS: BP 119/78; PULSE 103; TEMP 97.9
== END 2020-07-08 17:23 | disposition home or self-care (01) ==
LOC: JER 13:41
DX: R22.1 Localized swelling, mass and lump, neck (principal)
CPT/HCPCS: 36415; 70450-TC; 70491-TC; 80053; 82550; 84484; 85025; 85610; 93005; 93010; 99285-25; Q9967

== ENCOUNTER 2020-09-22 12:52 | Inpatient (IN) | payer OTHER ==
[2020-09-22 13:27] VITALS: BMI 27.4
[2020-09-22] MEDS ORDERED: ACETAMINOPHEN 1000 MG/100 ML VIAL (NON FORMULARY) IVPB ONE (14:12)
[2020-09-22] MEDS ORDERED: ACETAMINOPHEN INJECTION 100 ML IVPB ONE ×2 (14:20→15:29)
[2020-09-22] MEDS ORDERED: SODIUM CHLORIDE 0.9% 500 ML INFUS.BAG IV ONE (14:34)
[2020-09-22] MEDS ORDERED: PIPERACILLIN/TAZOB 4.5 GM 4.5 GM in DEXTROSE 5%-WATER 100 ML IVPB ONE (14:41)
[2020-09-22] MEDS ORDERED: VANCOMYCIN 1 GM in D5W (PRE-DOCKED) 1,000 MG/250 ML IVPB ONE (14:41)
[2020-09-22 14:58] LABS: BASO % 0.2 % (0-2.0); HEMOGLOBIN 12.7 GM/dL (11.7-16.9); LYMPH % 13.8 % (8-40); MCH 31.2 pg (25.7-33.7); MCHC 36.3 g/dl (32.0-35.9); MEAN CELL VOLUME 85.7 fl (80-96); MEAN PLT VOLUME 8.3 fl (7.5-11.1); MONO % 1.6 % (3.8-10.2); NEUT % 84.4 % (42.8-82.8); PLATELET COUNT 295 K/MM3 (134-434); RBC 4.09 M/mm3 (4.00-5.60); RDW 13.7 % (11.9-15.9); WHITE BLOOD COUNT 4.9 K/mm3 (4.0-10.0)
[2020-09-22 15:04] LABS: VENOUS BASE EXCESS 0.2 mmol/L (-2-2); VENOUS O2 SATURATION 78.7 % (70-80); VENOUS PCO2 33.2 mmHg (38-52); VENOUS PH 7.46 (7.310-7.410)
[2020-09-22 15:05] LABS: INR 1.12 (0.83-1.09); PROTHROMBIN TIME (PATIENT) 13.5 SEC (9.7-13.0)
[2020-09-22 15:07] LABS: ACTIVATED PTT 26.6 SECONDS (25.2-36.5)
[2020-09-22 15:16] LABS: CHLORIDE 100 mmol/L (98-107); POTASSIUM 3.5 mmol/L (3.5-5.1); SODIUM 134 mmol/L (136-145)
[2020-09-22 15:18] LABS: CALCIUM 8.9 mg/dL (8.5-10.1)
[2020-09-22 15:19] LABS: ALBUMIN 3.2 g/dl (3.4-5.0); ANION GAP 9 MMOL/L (8-16); BLOOD UREA NITROGEN 15.7 mg/dL (7-18); CO2 25 mmol/L (21-32); GLUCOSE,RANDOM 118 mg/dL (74-106)
[2020-09-22 15:21] LABS: BILIRUBIN,DIRECT 0.1 mg/dL (0.0-0.2)
[2020-09-22 15:22] LABS: SGOT/AST 29 U/L (15-37); SGPT/ALT 33 U/L (13-61)
[2020-09-22 15:23] LABS: LDH 273 U/L (87-246)
[2020-09-22 15:25] LABS: ALK PHOS 74 U/L (45-117); N-TERMINAL BNP 41.7 pg/ml (5-125)
[2020-09-22 15:27] LABS: BILIRUBIN,TOTAL 0.4 mg/dL (0.2-1)
[2020-09-22] MEDS ORDERED: VANCOMYCIN 1 GRAM (PRE-DOCKED) 1,000 MG/250 ML BAG IVPB ONE (15:42)
[2020-09-22] MEDS ORDERED: PIPERACILLIN/TAZOB 4.5 GM 4.5 GM/100 ML BAG IVPB ONE (15:42)
[2020-09-22 16:32] LABS: URINE APPEARANCE CLEAR; URINE BILIRUBIN NEGATIVE (NEGATIVE); URINE COLOR YELLOW; URINE GLUCOSE (UA) NEGATIVE (NEGATIVE); URINE KETONE NEGATIVE (NEGATIVE); URINE LEUK ESTERASE NEGATIVE (NEGATIVE); URINE NITRITE NEGATIVE (NEGATIVE); URINE PROTEIN TRACE (NEGATIVE); URINE UROBILINOGEN 0.2 mg/dL (0.2-1.0)
[2020-09-22] MEDS ORDERED: ACETAMINOPHEN 325 MG TABLET (FP) PO PRN (23:17)
[2020-09-22] MEDS ORDERED: ACETAMINOPHEN 325 MG TABLET (FP) ONE (23:28)
[2020-09-23] MEDS ORDERED: PIPERACILLIN/TAZOBACTAM 3.375 GM VIAL IVPB ONE ×3 (01:01→16:38)
[2020-09-23] MEDS ORDERED: DEXTROSE 5%-WATER - 50 ML IVPB ONE ×3 (01:01→16:38)
[2020-09-23] MEDS: PIPERACILLIN/TAZOB 3.375 GM 3.375 GM in DEXTROSE 5%-WATER - 50 ML IVPB SCH ×3 (01:12→17:15)
[2020-09-23] MEDS ORDERED: VANCOMYCIN 1 GRAM (PRE-DOCKED) 1,000 MG/250 ML BAG IVPB SCH (02:00)
[2020-09-23 07:15] LABS: BASO % 0.3 % (0-2.0); EOS % 0.2 % (0-4.5); HEMATOCRIT 33.8 % (35.4-49); LYMPH % 16.9 % (8-40); MCH 30.9 pg (25.7-33.7); MCHC 35.5 g/dl (32.0-35.9); MEAN PLT VOLUME 8.1 fl (7.5-11.1); MONO % 2.5 % (3.8-10.2); NEUT % 80.1 % (42.8-82.8); PLATELET COUNT 258 K/MM3 (134-434); RBC 3.89 M/mm3 (4.00-5.60); WHITE BLOOD COUNT 5.2 K/mm3 (4.0-10.0)
[2020-09-23 07:34] LABS: POTASSIUM 3.3 mmol/L (3.5-5.1)
[2020-09-23 07:36] LABS: CALCIUM 8.4 mg/dL (8.5-10.1)
[2020-09-23 07:37] LABS: ALBUMIN 2.8 g/dl (3.4-5.0); BLOOD UREA NITROGEN 11.5 mg/dL (7-18); MAGNESIUM 1.7 mg/dL (1.8-2.4)
[2020-09-23 07:40] LABS: CREATININE 0.9 mg/dL (0.55-1.3); PHOSPHOROUS 2.9 mg/dL (2.5-4.9)
[2020-09-23 07:41] LABS: BILIRUBIN,TOTAL 1.1 mg/dL (0.2-1)
[2020-09-23 07:42] LABS: TOT PROT 6.2 g/dl (6.4-8.2)
[2020-09-23] MEDS ORDERED: POTASSIUM CHLORIDE TABS 20 MEQ TABLET.ER (FP) PO ONE (08:16)
[2020-09-23] MEDS ORDERED: MAGNESIUM OXIDE 400 MG TABLET (FP) PO ONE (08:17)
[2020-09-23] MEDS ORDERED: POTASSIUM CHLORIDE ORAL LIQUID 20 MEQ/15 ML PO ONE (09:12)
[2020-09-23] MEDS ORDERED: ACETAMINOPHEN 650 MG/20.3 ML ORAL SOLUTION (CUPS) GT PRN (09:25)
[2020-09-23] MEDS ORDERED: MAGNESIUM OXIDE 400 MG TABLET (FP) GT ONE (09:26)
[2020-09-23] MEDS ORDERED: ENOXAPARIN NA (PORCINE) 40 MG/0.4 ML DISP.SYRIN SQ SCH (10:00)
[2020-09-23] MEDS ORDERED: ASCORBIC ACID 500 MG TABLET (FP) PO SCH (10:00)
[2020-09-23] MEDS ORDERED: ZINC SULFATE 220 MG CAPSULE (FP) PO SCH (10:00)
[2020-09-23] MEDS ORDERED: VANCOMYCIN 1 GM in D5W (PRE-DOCKED) 1,000 MG/250 ML IVPB SCH (10:00)
[2020-09-23] MEDS: ZINC SULFATE 220 MG CAPSULE (FP) GT SCH (10:28)
[2020-09-23] MEDS: ASCORBIC ACID 500 MG TABLET (FP) GT SCH ×2 (10:28→21:04)
[2020-09-23] MEDS: CHOLECALCIFEROL (VIT D3) 1,000 UNIT (25 MCG) TABLET PO SCH (10:29)
[2020-09-23] MEDS ORDERED: TOCILIZUMAB (ACTEMRA) 200 MG/10 ML VIAL IVPB ONE (12:58)
[2020-09-23] MEDS ORDERED: REMDESIVIR 200 MG in SODIUM CHLORIDE 210 ML IVPB ONE (13:00)
[2020-09-23] MEDS ORDERED: TOCILIZUMAB 400 MG, TOCILIZUMAB 200 MG, TOCILIZUMAB 50 MG in SODIUM CHLORIDE 67.5 ML IVPB ONE (15:00)
[2020-09-24] MEDS ORDERED: PIPERACILLIN/TAZOBACTAM 3.375 GM VIAL IVPB ONE ×3 (00:50→17:10)
[2020-09-24] MEDS ORDERED: DEXTROSE 5%-WATER - 50 ML IVPB ONE ×3 (00:50→17:10)
[2020-09-24] MEDS: PIPERACILLIN/TAZOB 3.375 GM 3.375 GM in DEXTROSE 5%-WATER - 50 ML IVPB SCH ×3 (01:00→17:54)
[2020-09-24 02:21] LABS: URIC ACID 2.4 mg/dL (2.6-7.2)
[2020-09-24 08:38] LABS: POTASSIUM 3.3 mmol/L (3.5-5.1)
[2020-09-24 08:45] LABS: ALBUMIN 2.7 g/dl (3.4-5.0); BLOOD UREA NITROGEN 11.2 mg/dL (7-18)
[2020-09-24 08:47] LABS: BILIRUBIN,TOTAL 0.3 mg/dL (0.2-1); CALCIUM 8.2 mg/dL (8.5-10.1); MAGNESIUM 1.7 mg/dL (1.8-2.4); TOT PROT 6.2 g/dl (6.4-8.2)
[2020-09-24 08:48] LABS: CREATININE 0.7 mg/dL (0.55-1.3)
[2020-09-24 08:50] LABS: BASO % 0.2 % (0-2.0); EOS % 0.5 % (0-4.5); HEMATOCRIT 33.2 % (35.4-49); HEMOGLOBIN 11.9 GM/dL (11.7-16.9); LYMPH % 21.5 % (8-40); MCH 30.8 pg (25.7-33.7); MCHC 35.8 g/dl (32.0-35.9); MEAN PLT VOLUME 8.5 fl (7.5-11.1); MONO % 3.4 % (3.8-10.2); NEUT % 74.4 % (42.8-82.8); PLATELET COUNT 301 K/MM3 (134-434); RBC 3.86 M/mm3 (4.00-5.60); RDW 13.8 % (11.9-15.9); WHITE BLOOD COUNT 3.4 K/mm3 (4.0-10.0)
[2020-09-24] MEDS: AMINO ACIDS/PROTEIN HYDROLYS 30 ML LIQUID.PKT GT SCH ×2 (09:56→17:54)
[2020-09-24] MEDS: ASCORBIC ACID 500 MG TABLET (FP) GT SCH ×2 (09:56→21:53)
[2020-09-24] MEDS: CHOLECALCIFEROL (VIT D3) 1,000 UNIT (25 MCG) TABLET PO SCH (09:57)
[2020-09-24] MEDS: ZINC SULFATE 220 MG CAPSULE (FP) GT SCH (09:57)
[2020-09-24] MEDS: ENOXAPARIN NA (PORCINE) 80 MG/0.8 ML DISP.SYRIN SQ SCH ×2 (10:00→21:53)
[2020-09-24] MEDS: REMDESIVIR 100 MG in SODIUM CHLORIDE 230 ML IVPB SCH (12:33)
[2020-09-24] MEDS: POTASSIUM CHLORIDE ORAL LIQUID 20 MEQ/15 ML GT SCH ×2 (15:46→21:53)
[2020-09-24] MEDS: DEXAMETHASONE SOD PHOSPHATE 4 MG/1 ML VIAL IVPUSH SCH (17:05)
[2020-09-25] MEDS ORDERED: PIPERACILLIN/TAZOBACTAM 3.375 GM VIAL IVPB ONE ×3 (02:33→17:48)
[2020-09-25] MEDS ORDERED: DEXTROSE 5%-WATER - 50 ML IVPB ONE ×3 (02:33→17:48)
[2020-09-25] MEDS: PIPERACILLIN/TAZOB 3.375 GM 3.375 GM in DEXTROSE 5%-WATER - 50 ML IVPB SCH ×3 (02:42→17:53)
[2020-09-25 08:05] LABS: BASO % 0.4 % (0-2.0); HEMATOCRIT 33.7 % (35.4-49); HEMOGLOBIN 12.3 GM/dL (11.7-16.9); LYMPH % 28.7 % (8-40); MCH 31.2 pg (25.7-33.7); MCHC 36.6 g/dl (32.0-35.9); MEAN CELL VOLUME 85.2 fl (80-96); MONO % 7.9 % (3.8-10.2); PLATELET COUNT 327 K/MM3 (134-434); RBC 3.95 M/mm3 (4.00-5.60); WHITE BLOOD COUNT 2.2 K/mm3 (4.0-10.0)
[2020-09-25 08:21] LABS: POTASSIUM 4.4 mmol/L (3.5-5.1)
[2020-09-25 08:23] LABS: CALCIUM 9.1 mg/dL (8.5-10.1)
[2020-09-25 08:24] LABS: ALBUMIN 2.7 g/dl (3.4-5.0); BLOOD UREA NITROGEN 14.2 mg/dL (7-18); MAGNESIUM 1.9 mg/dL (1.8-2.4)
[2020-09-25 08:27] LABS: CREATININE 0.6 mg/dL (0.55-1.3)
[2020-09-25 08:28] LABS: BILIRUBIN,TOTAL 0.4 mg/dL (0.2-1); TOT PROT 6.4 g/dl (6.4-8.2)
[2020-09-25] MEDS ORDERED: MAGNESIUM OXIDE 400 MG TABLET (FP) PO ONE (09:00)
[2020-09-25] MEDS: ENOXAPARIN NA (PORCINE) 80 MG/0.8 ML DISP.SYRIN SQ SCH ×2 (11:03→21:16)
[2020-09-25] MEDS: ZINC SULFATE 220 MG CAPSULE (FP) GT SCH (11:04)
[2020-09-25] MEDS: AMINO ACIDS/PROTEIN HYDROLYS 30 ML LIQUID.PKT GT SCH ×2 (11:04→17:53)
[2020-09-25] MEDS: ASCORBIC ACID 500 MG TABLET (FP) GT SCH ×2 (11:04→21:16)
[2020-09-25] MEDS: CHOLECALCIFEROL (VIT D3) 1,000 UNIT (25 MCG) TABLET PO SCH (11:04)
[2020-09-25] MEDS: DEXAMETHASONE SOD PHOSPHATE 4 MG/1 ML VIAL IVPUSH SCH (11:17)
[2020-09-25] MEDS: REMDESIVIR 100 MG in SODIUM CHLORIDE 230 ML IVPB SCH (12:41)
[2020-09-26] MEDS ORDERED: PIPERACILLIN/TAZOBACTAM 3.375 GM VIAL IVPB ONE ×3 (01:35→16:54)
[2020-09-26] MEDS ORDERED: DEXTROSE 5%-WATER - 50 ML IVPB ONE ×3 (01:36→16:55)
[2020-09-26] MEDS: PIPERACILLIN/TAZOB 3.375 GM 3.375 GM in DEXTROSE 5%-WATER - 50 ML IVPB SCH ×3 (02:10→16:59)
[2020-09-26 06:46] LABS: BASO % 0.4 % (0-2.0); EOS % 0.3 % (0-4.5); HEMATOCRIT 32.3 % (35.4-49); HEMOGLOBIN 11.8 GM/dL (11.7-16.9); LYMPH % 28.6 % (8-40); MCH 31.1 pg (25.7-33.7); MCHC 36.6 g/dl (32.0-35.9); MEAN CELL VOLUME 84.9 fl (80-96); MEAN PLT VOLUME 7.7 fl (7.5-11.1); MONO % 9.1 % (3.8-10.2); NEUT % 61.6 % (42.8-82.8); PLATELET COUNT 349 K/MM3 (134-434); RDW 14.2 % (11.9-15.9); WHITE BLOOD COUNT 3.5 K/mm3 (4.0-10.0)
[2020-09-26 07:03] LABS: POTASSIUM 3.8 mmol/L (3.5-5.1)
[2020-09-26 07:05] LABS: CALCIUM 8.8 mg/dL (8.5-10.1)
[2020-09-26 07:06] LABS: ALBUMIN 2.7 g/dl (3.4-5.0); BLOOD UREA NITROGEN 17.7 mg/dL (7-18); MAGNESIUM 1.7 mg/dL (1.8-2.4)
[2020-09-26 07:09] LABS: CREATININE 0.7 mg/dL (0.55-1.3)
[2020-09-26 07:10] LABS: BILIRUBIN,TOTAL 0.2 mg/dL (0.2-1)
[2020-09-26] MEDS ORDERED: MAGNESIUM SULF 50% (8.12 MEQ/2 ML-1 GM VIAL) IVPB ONE (08:29)
[2020-09-26] MEDS ORDERED: POTASSIUM CHLORIDE TABS 20 MEQ TABLET.ER (FP) PO ONE (08:29)
[2020-09-26] MEDS: DEXAMETHASONE SOD PHOSPHATE 4 MG/1 ML VIAL IVPUSH SCH (11:20)
[2020-09-26] MEDS: AMINO ACIDS/PROTEIN HYDROLYS 30 ML LIQUID.PKT GT SCH ×2 (11:20→16:59)
[2020-09-26] MEDS: ASCORBIC ACID 500 MG TABLET (FP) GT SCH ×2 (11:21→21:35)
[2020-09-26] MEDS: CHOLECALCIFEROL (VIT D3) 1,000 UNIT (25 MCG) TABLET PO SCH (11:21)
[2020-09-26] MEDS: ZINC SULFATE 220 MG CAPSULE (FP) GT SCH (11:21)
[2020-09-26] MEDS: ENOXAPARIN NA (PORCINE) 80 MG/0.8 ML DISP.SYRIN SQ SCH ×2 (11:21→21:35)
[2020-09-26] MEDS: REMDESIVIR 100 MG in SODIUM CHLORIDE 230 ML IVPB SCH (13:24)
[2020-09-27] MEDS ORDERED: PIPERACILLIN/TAZOBACTAM 3.375 GM VIAL IVPB ONE ×4 (00:51→18:16)
[2020-09-27] MEDS ORDERED: DEXTROSE 5%-WATER - 50 ML IVPB ONE ×4 (00:52→18:17)
[2020-09-27] MEDS: PIPERACILLIN/TAZOB 3.375 GM 3.375 GM in DEXTROSE 5%-WATER - 50 ML IVPB SCH ×3 (01:21→18:33)
[2020-09-27 08:53] LABS: POTASSIUM 3.8 mmol/L (3.5-5.1)
[2020-09-27 08:59] LABS: ALBUMIN 2.7 g/dl (3.4-5.0); BLOOD UREA NITROGEN 17.8 mg/dL (7-18); CALCIUM 8.6 mg/dL (8.5-10.1); MAGNESIUM 1.8 mg/dL (1.8-2.4)
[2020-09-27 09:03] LABS: CREATININE 0.7 mg/dL (0.55-1.3)
[2020-09-27 09:04] LABS: BILIRUBIN,TOTAL 0.4 mg/dL (0.2-1); TOT PROT 6.2 g/dl (6.4-8.2)
[2020-09-27] MEDS ORDERED: PT OWN MED DRAWER 7, Y5N ONE ×2 (09:25→09:27)
[2020-09-27 09:39] LABS: BASO % 1.4 % (0-2.0); EOS % 0.3 % (0-4.5); HEMATOCRIT 44.2 % (35.4-49); HEMOGLOBIN 15.4 GM/dL (11.7-16.9); LYMPH % 30.8 % (8-40); MCH 30.3 pg (25.7-33.7); MCHC 34.9 g/dl (32.0-35.9); MEAN CELL VOLUME 86.9 fl (80-96); MEAN PLT VOLUME 8.1 fl (7.5-11.1); MONO % 8.6 % (3.8-10.2); NEUT % 58.9 % (42.8-82.8); PLATELET COUNT 261 K/MM3 (134-434); RBC 5.08 M/mm3 (4.00-5.60); RDW 14.1 % (11.9-15.9); WHITE BLOOD COUNT 2.7 K/mm3 (4.0-10.0)
[2020-09-27] MEDS: AMINO ACIDS/PROTEIN HYDROLYS 30 ML LIQUID.PKT GT SCH ×2 (09:39→18:33)
[2020-09-27] MEDS: ENOXAPARIN NA (PORCINE) 80 MG/0.8 ML DISP.SYRIN SQ SCH ×2 (09:40→22:34)
[2020-09-27] MEDS: ASCORBIC ACID 500 MG TABLET (FP) GT SCH ×2 (09:41→22:35)
[2020-09-27] MEDS: CHOLECALCIFEROL (VIT D3) 1,000 UNIT (25 MCG) TABLET PO SCH (09:41)
[2020-09-27] MEDS: ZINC SULFATE 220 MG CAPSULE (FP) GT SCH (09:41)
[2020-09-27] MEDS: DEXAMETHASONE SOD PHOSPHATE 4 MG/1 ML VIAL IVPUSH SCH (09:41)
[2020-09-27] MEDS: REMDESIVIR 100 MG in SODIUM CHLORIDE 230 ML IVPB SCH (12:47)
[2020-09-28] MEDS ORDERED: DEXTROSE 5%-WATER - 50 ML IVPB ONE (02:56)
[2020-09-28] MEDS ORDERED: PIPERACILLIN/TAZOBACTAM 3.375 GM VIAL IVPB ONE (02:56)
[2020-09-28] MEDS: PIPERACILLIN/TAZOB 3.375 GM 3.375 GM in DEXTROSE 5%-WATER - 50 ML IVPB SCH ×2 (02:57→11:17)
[2020-09-28 09:08] LABS: BASO % 0.6 % (0-2.0); EOS % 0.6 % (0-4.5); HEMATOCRIT 33.5 % (35.4-49); HEMOGLOBIN 12.3 GM/dL (11.7-16.9); LYMPH % 36.4 % (8-40); MCH 31.5 pg (25.7-33.7); MCHC 36.8 g/dl (32.0-35.9); MEAN CELL VOLUME 85.7 fl (80-96); MEAN PLT VOLUME 7.5 fl (7.5-11.1); MONO % 8.3 % (3.8-10.2); NEUT % 54.1 % (42.8-82.8); PLATELET COUNT 429 K/MM3 (134-434); RDW 13.8 % (11.9-15.9); WHITE BLOOD COUNT 4.2 K/mm3 (4.0-10.0)
[2020-09-28 09:47] LABS: POTASSIUM 4.8 mmol/L (3.5-5.1)
[2020-09-28] MEDS ORDERED: DEXAMETHASONE 4 MG TABLET (FP) PO SCH (10:00)
[2020-09-28] MEDS ORDERED: AMOX TR/POTASSIUM CLAVULANATE 250 MG/5 ML BOTTLE GT SCH (10:17)
[2020-09-28 10:26] LABS: CALCIUM 8.9 mg/dL (8.5-10.1)
[2020-09-28 10:27] LABS: ALBUMIN 2.7 g/dl (3.4-5.0); BLOOD UREA NITROGEN 15.7 mg/dL (7-18); MAGNESIUM 1.9 mg/dL (1.8-2.4)
[2020-09-28 10:30] LABS: CREATININE 0.8 mg/dL (0.55-1.3)
[2020-09-28 10:31] LABS: BILIRUBIN,TOTAL 0.4 mg/dL (0.2-1); TOT PROT 6.3 g/dl (6.4-8.2)
[2020-09-28] MEDS: AMINO ACIDS/PROTEIN HYDROLYS 30 ML LIQUID.PKT GT SCH (10:44)
[2020-09-28] MEDS: ENOXAPARIN NA (PORCINE) 80 MG/0.8 ML DISP.SYRIN SQ SCH (10:44)
[2020-09-28] MEDS: CHOLECALCIFEROL (VIT D3) 1,000 UNIT (25 MCG) TABLET PO SCH (10:44)
[2020-09-28] MEDS: ASCORBIC ACID 500 MG TABLET (FP) GT SCH (10:45)
[2020-09-28] MEDS: ZINC SULFATE 220 MG CAPSULE (FP) GT SCH (10:45)
[2020-09-28 13:35] LABS: ANISOCYTOSIS 1+; MACROCYTOSIS 1+; PLATELET ESTIMATE NORMAL
[2020-09-28 15:08] VITALS: BP 108/60; PULSE 86; TEMP 97.8
[2020-09-28] MEDS ORDERED: AMOX TR/POT CLAV 500MG/125MG TABLETS (FP) PO SCH (17:30)
== END 2020-09-28 17:30 | disposition home or self-care (01) | DRG 720 ==
LOC: JER 12:52 → JERBED 17:06 → J7W 09-23 00:54
PROVIDERS: ADMIT Internal Medicine; ATTEND Nurse Practitioner Family
PROC: XW033E5 Introduction of Remdesivir Anti-infective into Peripheral Vein, Percutaneous Approach, New Technology Group 5 (ICD-10-PCS; principal; 2020-09-23)
PROC: 3E0G76Z Introduction of Nutritional Substance into Upper GI, Via Natural or Artificial Opening (ICD-10-PCS; 2020-09-23)
DX: A41.89 Other specified sepsis (principal); U07.1 COVID-19; J12.82 Pneumonia due to coronavirus disease 2019; C76.0 Malignant neoplasm of head, face and neck; D72.829 Elevated white blood cell count, unspecified; E78.00 Pure hypercholesterolemia, unspecified; L73.2 Hidradenitis suppurativa; E87.1 Hypo-osmolality and hyponatremia; E78.5 Hyperlipidemia, unspecified; D72.819 Decreased white blood cell count, unspecified; R63.0 Anorexia; R50.9 Fever, unspecified; E87.6 Hypokalemia; J96.00 Acute respiratory failure, unspecified whether with hypoxia or hypercapnia; E44.0 Moderate protein-calorie malnutrition; Z68.27 Body mass index [BMI] 27.0-27.9, adult; Z51.11 Encounter for antineoplastic chemotherapy; Z93.1 Gastrostomy status
CPT/HCPCS: 36415; 71045-TC-FY; 71275-TC; 80053; 81003; 82248; 82550; 82728; 82803; 83605; 83615; 83735; 83880; 84100; 84484; 84550; 85025; 85379; 85610; 85730; 86140; 86769; 87040; 87070; 87086; 87205; 87804; 87899; 93005; 93010; 93308; 99285-25; C9399; C9803; J0131; Q9967; U0003

== ENCOUNTER 2021-05-06 13:52 | Emergency (ER) | payer OTHER ==
[2021-05-06 14:10] VITALS: BMI 22.6
[2021-05-06 15:35] LABS: CHLORIDE 95 mmol/L (98-107); SODIUM 132 mmol/L (136-145)
[2021-05-06 15:37] LABS: CALCIUM 8.5 mg/dL (8.5-10.1)
[2021-05-06 15:38] LABS: ALBUMIN 2.6 g/dl (3.4-5.0); ANION GAP 10 MMOL/L (8-16); BLOOD UREA NITROGEN 21.2 mg/dL (7-18); CO2 28 mmol/L (21-32)
[2021-05-06 15:40] LABS: GLUCOSE,RANDOM 111 mg/dL (74-106)
[2021-05-06 15:41] LABS: CREATININE 0.8 mg/dL (0.55-1.3); SGOT/AST 33 U/L (15-37); SGPT/ALT 47 U/L (13-61)
[2021-05-06 15:42] LABS: BASO % 0.4 % (0-2.0); BILIRUBIN,TOTAL 0.4 mg/dL (0.2-1); EOS % 0.9 % (0-4.5); HEMATOCRIT 36.6 % (35.4-49); HEMOGLOBIN 13.1 GM/dL (11.7-16.9); LYMPH % 15.6 % (8-40); MCH 30.6 pg (25.7-33.7); MCHC 35.7 g/dl (32.0-35.9); MEAN CELL VOLUME 85.6 fl (80-96); MONO % 8.7 % (3.8-10.2); NEUT % 74.4 % (42.8-82.8); PLATELET COUNT 213 10^3/uL (134-434); RBC 4.28 M/mm3 (4.00-5.60); RDW 15.8 % (11.9-15.9); TOT PROT 6.3 g/dl (6.4-8.2)
[2021-05-06 15:43] LABS: ALK PHOS 80 U/L (45-117)
[2021-05-06 15:47] LABS: INR 1.02 (0.83-1.09); PROTHROMBIN TIME (PATIENT) 12.4 SEC (9.7-13.0)
[2021-05-06 17:37] VITALS: BP 103/74; PULSE 108; TEMP 99.2
== END 2021-05-06 19:10 | disposition left against medical advice (07) ==
LOC: JER 13:52
DX: M79.89 Other specified soft tissue disorders (principal)
CPT/HCPCS: 36415; 70450-TC; 70486-TC; 70496-TC; 70498-TC; 80053; 82550; 82553; 84484; 85025; 85610; 85730; 86850; 86900; 86901; 99285-25

== ENCOUNTER 2021-07-24 10:54 | Emergency (ER) | payer OTHER ==
[2021-07-24 11:32] VITALS: BMI 24.7
[2021-07-24] MEDS ORDERED: ACETAMINOPHEN 1000 MG/100 ML VIAL IVPB ONE (11:53)
[2021-07-24] MEDS ORDERED: ACETAMINOPHEN INJECTION 100 ML IVPB ONE (12:25)
[2021-07-24 13:00] LABS: BASO % 0.3 % (0-2.0); EOS % 1.4 % (0-4.5); HEMATOCRIT 39.6 % (35.4-49); HEMOGLOBIN 13.9 GM/dL (11.7-16.9); LYMPH % 13.8 % (8-40); MCH 30.6 pg (25.7-33.7); MEAN CELL VOLUME 87.2 fl (80-96); MONO % 7.4 % (3.8-10.2); NEUT % 77.1 % (42.8-82.8); PLATELET COUNT 269 10^3/uL (134-434); RBC 4.54 M/mm3 (4.00-5.60); RDW 17.2 % (11.9-15.9); WHITE BLOOD COUNT 9.5 K/mm3 (4.0-10.0)
[2021-07-24 13:22] LABS: CHLORIDE 99 mmol/L (98-107); SODIUM 134 mmol/L (136-145)
[2021-07-24 13:24] LABS: ALBUMIN 3.2 g/dl (3.4-5.0); ANION GAP 5 MMOL/L (8-16); BLOOD UREA NITROGEN 20.9 mg/dL (7-18); CALCIUM 10.8 mg/dL (8.5-10.1); CO2 31 mmol/L (21-32); GLUCOSE,RANDOM 77 mg/dL (74-106)
[2021-07-24 13:27] LABS: CREATININE 0.8 mg/dL (0.55-1.3); SGOT/AST 49 U/L (15-37)
[2021-07-24 13:30] LABS: ALK PHOS 93 U/L (45-117)
[2021-07-24 13:38] LABS: SGPT/ALT 38 U/L (13-61)
[2021-07-24 14:44] VITALS: BP 127/86; PULSE 110; TEMP 98.1
== END 2021-07-24 14:45 | disposition short-term general hospital (02) ==
LOC: JER 10:54
PROC: 3E0333Z Introduction of Anti-inflammatory into Peripheral Vein, Percutaneous Approach (ICD-10-PCS; principal; 2021-07-24)
DX: C76.0 Malignant neoplasm of head, face and neck (principal)
CPT/HCPCS: 36415; 71045-TC-FY; 80053; 82550; 82553; 84484; 85025; 87804; 87807; 93005; 93010; 99285-25; C9803; J0131; U0003; U0005